=== PATIENT | male | born 1950 | race Caucasian/White ===

== ENCOUNTER 2020-12-11 20:18 | Inpatient (IN) | payer MEDICARE, BC ==
[~2020-12-11] VITALS: Ht 180.3 cm; Wt 80.3 kg
[2020-12-11 19:40] VITALS: BP 108/59
--- NOTE | 2020-12-11 19:45 | NUR ---
Pt arrived to room 646 at 1937 per ems, pt assisted to bed from cart with assistance tele monitor applied to pt vas obtained and stable. Pt oriented to surroundings and call light. Assessment completed pt denied pain at this time pt coccyx red foam applied will resume care and continue to monitor pt.
[2020-12-11] MEDS ORDERED: oxyCODONE/APAP 5/325 1 TAB TABLET PO PRN ×2 (20:45)
[2020-12-11] MEDS ORDERED: ELECTROLYTE (NON-ICU) PROTOCOL. MC PRN (20:45)
[2020-12-11] MEDS ORDERED: oxyCODONE IR 5 MG TABLET PO PRN (20:45)
[2020-12-11] MEDS ORDERED: DEXTROSE 50% 25 GM / 50ML DISP.SYRIN. IV PRN (20:45)
[2020-12-11] MEDS ORDERED: CALCIUM CARBONATE 500 MG TAB.CHEW PO PRN (20:45)
[2020-12-11] MEDS ORDERED: ONDANSETRON PF 4 MG/2 ML VIAL. IVP PRN (20:45)
[2020-12-11] MEDS ORDERED: ACETAMINOPHEN 325 MG TABLET. PO PRN (20:45)
--- NOTE | 2020-12-11 20:54 | PDOC1 ---
History and Physical Date of Service: DOS: DATE: 12/11/20 TIME: 20:42 Chief Complaint: Problems: (1) DM2 (diabetes mellitus, type 2) (2) CAD (coronary artery disease) (3) Pneumonia due to COVID-19 virus Chief Complain: Falls at home History of Present Illness: HPI: Patient 70-year-old male presented to the emergency room at outside hospital on December 05 with a chief complaint of multiple falls secondary to trouble with balance. Apparently this has been going on for several months around the same time patient had decreased eating drinking for reasons unknown. Patient has very poorly controlled diabetes A1c greater than 14 at outside hospital. He has bad neuropathy as well. Presented outside facility was found to be Covid positive. While outside facility patient apparently had questionable seizure activity? Appears that this was related to his infections and poorly controlled diabetes. He notes that patient was placed on Keppra at any time or anything. Suspect patient also getting hypoglycemic with diabetes and decreased p.o. intake. Patient had apparently been doing well with Covid treatment with remdesivir and steroids but over the past 24 hours has had an increased O2 requirement. Transferred here for further work-up. Patient has never been Covid vaccinated. He thinks his pneumococcal vaccines are up-to-date. Past Medical/Surgical History: PMH/PSH: COPD, emphysema, CAD, hyperlipidemia, sleep apnea, poorly controlled diabetes Allergies: Allergies: Coded Allergies: No Known Allergies (Verified Allergy, Unknown, 12/11/20) Family History: Family History: Reviewed with patient reports history of hypertension Social History: Social History: 19-wbsy-ifii smoking history. Social alcohol use no recreational drug use Current Medications: Current Medications Current Medications Ondansetron HCl (Zofran) 4 mg PRN Q6HRS PRN IVP NAUSEA/VOMITING; Start 12/11/20 at 20:45 Calcium Carbonate/ Glycine (Tums) 500 mg PRN Q3HRS PRN PO UPSET STOMACH; Start 12/11/20 at 20:45; Status UNV Info (Non-Icu Electrolyte Protocol) 1 ea PRN DAILY PRN MC SEE COMMENTS; Start 12/11/20 at 20:45; Status UNV Oxycodone HCl (Roxicodone) 5 mg PRN Q3HRS PRN PO BREAKTHROUGH PAIN; Start 12/11/20 at 20:45; Status UNV Oxycodone/ Acetaminophen (Percocet 5/325) 1 tab PRN Q4HRS PRN PO MILD PAIN, 1ST CHOICE; Start 12/11/20 at 20:45; Status UNV Oxycodone/ Acetaminophen (Percocet 5/325) 2 tab PRN Q4HRS PRN PO MODERATE PAIN, SEVERE PAIN; Start 12/11/20 at 20:45; Status UNV Acetaminophen (Tylenol) 650 mg PRN Q6HRS PRN PO Headaches, Temp > 101.5F; Start 12/11/20 at 20:45; Status UNV Senna/Docusate Sodium (Senna Plus) 1 tab BID PO ; Start 12/11/20 at 21:00; Status UNV Heparin Sodium (Porcine) (Heparin Sodium) 5,000 unit Q12HR SQ ; Start 12/11/20 at 21:00; Status UNV Insulin Glargine (Lantus Syringe) 15 unit QHS SQ ; Start 12/11/20 at 21:00; Status UNV Insulin Human Lispro (HumaLOG) 0-7 UNITS TIDWMEALS SQ ; Start 12/12/20 at 08:00; Status UNV Dextrose (Dextrose 50%-Water Syringe) 12.5 gm PRN Q15MIN PRN IV SEE COMMENTS; Start 12/11/20 at 20:45; Status UNV ROS: Review of Systems Review of System Unless noted in HPI 14 point review of systems was negative Physical Exam: Vital Signs: Vital Signs Date Time Temp Pulse Resp B/P (MAP) Pulse Ox O2 Delivery O2 Flow Rate FiO2 12/11/20 19:40 97.7 66 18 108/59 (75) 95 NonRebreather Mask 97.7 Physcial Exam: GEN: No apparent distress. Alert and oriented x 3 HEENT: Normal cephalic, atraumatic, external auditory canals are patent EYES: Extraocular muscles are intact, pupil are equally round and reactive to light and accommodation MUSCULOSKELETAL: Well developed , well nourished, good range of motion ENDOCRINE: No thyromegaly was palpated LYMPHATICS: No cervical chain or axillary nodes were noted HEMATOPOIETIC: No bruising NECK: Supple, no JVD, no thyromegaly was noted LUNGS: Coarse breath sounds throughout decreased air entry HEART: RRR, S!, S2 present. Peripheral pulses intact, no obvious murmurs noted ABDOMEN: Soft, nontender. Positive bowel sounds, no organomegaly, normal bowel sounds EXTREMITIES: Without clubbing, cyanosis, or edema. Pedal pulses intact. NEUROLOGIC: Normal speech and tone. A&O x 3, moves all extremities, weakness throughout PSYCHIATRIC: Normal affect, normal mood. Stable SKIN: No ulcerations or rashes, good skin turgor, no jaundice VASCULAR: Good capillary refill, neurovascular bundle appears to be intact Labs: Labs: Lab work remarkable for troponin 0 0.074, glucose 357 white count 6.8, creatinine 1.3. Echo in March 2020 shows EF 55 to 60% Assessment/Plan Assessment/Plan Acute hypoxic respiratory failure secondary to COVID-19 pneumonia, type 2 diabetes with poor control, severe protein malnutrition -Present outside hospital with multiple falls in setting of Covid positive recent episode of altered mental status and poor p.o. intake -Treated with remdesivir steroids at outside hospital -Remdesivir and dexamethasone resumed from [facility] for Covid. -will add Zosyn in event of bacterial pneumonia overlapping -A1c at outside facility 14.5. Needs aggressive glucose control. Will start sliding scale and long-acting until daily insulin requirement established -DVT prophylaxis -Cardiac diet -Home meds resumed as indicated. I spent 19 minutes discussing advanced care planning with this patient he would like to be full code. I also discussed this with patient's over the phone who agrees with this sentiment. Justifications for Admission Other Justification BRITTNY MATTHEW MD Dec 11, 2020 20:54
[2020-12-11] MEDS ORDERED: PIP/TAZO PER PHARMACY MC PRN (21:00)
[2020-12-11] MEDS: SENNOSIDES/DOCUSATE 8.6/50MG TABLET. PO SCH (21:38)
[2020-12-11] MEDS: INSULIN GLARGINE SYRINGE. SQ SCH (21:38)
[2020-12-11] MEDS: HEPARIN for SUB-Q USE 5,000 UNIT/ML VIAL. SQ SCH (21:38)
[2020-12-11] MEDS: PIPERACILLIN/TAZOBACTAM 2.25 GM in IV NORMAL SALINE 50ML 50 ML IV SCH (23:07)
[2020-12-11 23:16] VITALS: BP 117/76
[2020-12-12 03:00] VITALS: BP 127/68
[2020-12-12] MEDS ORDERED: LISI20TA18 PO (05:04)
[2020-12-12] MEDS ORDERED: CETI10TA16 PO (05:04)
[2020-12-12] MEDS ORDERED: GABA600T7 PO (05:04)
[2020-12-12] MEDS ORDERED: BUPR150T21 PO (05:04)
[2020-12-12] MEDS ORDERED: ESOM40CA PO (05:04)
[2020-12-12] MEDS ORDERED: ESCITALOPRAM OX10 MG PO (05:04)
[2020-12-12] MEDS ORDERED: ASPI-630 PO (05:04)
[2020-12-12] MEDS ORDERED: PRAV20TA2 PO (05:04)
[2020-12-12] MEDS ORDERED: INSU100I13 SQ (05:04)
[2020-12-12] MEDS: PIPERACILLIN/TAZOBACTAM 2.25 GM in IV NORMAL SALINE 50ML 50 ML IV SCH ×4 (05:30→23:33)
[2020-12-12 07:22] VITALS: BP 127/81
[2020-12-12] MEDS: INSULIN LISPRO 300 UNITS/3 ML VIAL. SQ SCH ×3 (08:00→17:00)
[2020-12-12] MEDS: SENNOSIDES/DOCUSATE 8.6/50MG TABLET. PO SCH ×3 (09:00→21:37)
[2020-12-12] MEDS: HEPARIN for SUB-Q USE 5,000 UNIT/ML VIAL. SQ SCH ×2 (10:29→21:36)
[2020-12-12 10:52] VITALS: BP 123/72
--- NOTE | 2020-12-12 12:07 | PDOC ---
[employer] PROGRESS NOTE Date of Service DOS: DATE: 12/12/20 TIME: 12:05 Chief Complaint Chief Complaint Covid-19 respiratory failure Advanced age COPD, emphysema, CAD, hyperlipidemia, sleep apnea, poorly controlled diabetes History of Present Illness History of Present Illness 12/12/2020 Patient seen and examined He is on 100% nonrebreather Pleasantly confused Discussed with RN Chart reviewed He appears quite ill! Vitals/I&O Vitals/I&O: Vital Signs Date Time Temp Pulse Resp B/P (MAP) Pulse Ox O2 Delivery O2 Flow Rate FiO2 12/12/20 10:52 97.8 106 22 123/72 (89) 94 NonRebreather Mask 15.0 97.8 I & O 12/11/20 12/11/20 12/12/20 15:00 23:00 07:00 Intake Total 0 ml 300 ml Output Total 500 ml Balance 0 ml -200 ml Physical Exam General: Other (Pleasantly confused on 100% nonrebreather) Heart: Other (Tachycardic S1-S2) Lungs: Crackles Abdomen: No tenderness Extremities: No clubbing Skin: No rashes Labs Labs: Laboratory Tests Test 12/11/20 21:45 12/12/20 10:26 Glucose (Fingerstick) 231 mg/dL (70-99) 182 mg/dL (70-99) Assessment and Plan Assessmemt and Plan Covid-19 respiratory failure Advanced age COPD, emphysema, CAD, hyperlipidemia, sleep apnea, poorly controlled diabetes Plan Respiratory isolation Cardiac monitoring Covid protocol Remdesivir Zosyn Doxycycline Multiple vitamins with minerals Robitussin with codeine cough syrup Aspirin Heparin for DVT prophylaxis Continue O2 per 100% nonrebreather and hope to titrate that down Trend labs Home meds DVT prophylaxis Full code Prognosis guarded CC time 31-minute Comment Review of Relevant I have reviewed the following items tina (where applicable) has been applied. Medications: Current Medications Medications (Trade) Dose Ordered Sig/Vandana Route PRN Reason Start Time Stop Time Status Last Admin Dose Admin Senna/Docusate Sodium (Senna Plus) 1 tab BID PO 12/11/20 21:00 12/11/20 21:38 Heparin Sodium (Porcine) (Heparin Sodium) 5,000 unit Q12HR SQ 12/11/20 21:00 12/12/20 10:29 Insulin Glargine (Lantus Syringe) 15 unit QHS SQ 12/11/20 21:00 12/11/20 21:38 Piperacillin Sod/ Tazobactam Sod 2.25 gm/Sodium Chloride 50 ml @ 100 mls/hr Q6HRS IV 12/12/20 00:00 12/12/20 05:30 Justifications for Admission Other Justification HANNAH PARKER III DO Dec 12, 2020 12:07
[2020-12-12] MEDS ORDERED: ENOXAPARIN 40 MG/0.4 ML SYRINGE. SQ SCH (12:15)
[2020-12-12] MEDS ORDERED: guaiFENesin/CODEINE 100mg/10mg 5 ML LIQUID PO PRN (12:15)
[2020-12-12] MEDS: MULTIVITAMIN with MINERAL TABLET. PO SCH (12:32)
[2020-12-12] MEDS: DEXAMETHASONE SOD PHOS 4 MG/ML VIAL IVP SCH (12:32)
[2020-12-12] MEDS: ASPIRIN CHEWABLE 81 MG TABLET. PO SCH (12:32)
[2020-12-12 15:00] VITALS: BP 140/68
[2020-12-12] MEDS: DOXYCYCLINE HYCLATE 100 MG in IV DEXTROSE 5% 100ML 100 ML IV SCH ×2 (16:07→21:38)
--- NOTE | 2020-12-12 16:49 | NUR ---
SS following for discharge planning. SS reviewed pt chart and discussed with pt RN. Pt is from home with spouse and is currently requiring oxygen at 15 liters non-rebreather. COVID19 positive. Pt on IV Remdesivir, IV Zosyn, IV Doxycycline, and IV Decadron. SS will continue to follow for discharge planning.
[2020-12-12] MEDS: REMDESIVIR 100mg in NORMAL SALINE 250ML X 4 DAYS IV SCH (17:33)
[2020-12-12 19:16] VITALS: BP 114/77
--- NOTE | 2020-12-12 19:55 | NUR ---
Pt in bed assessment completed vss pt denied pain at this time pt alert with forgetfulness pt reoriented to surroundings and call light bed alarm set will resume care and continue to monitor pt.
[2020-12-12] MEDS: INSULIN GLARGINE SYRINGE. SQ SCH (21:36)
[2020-12-12 22:50] VITALS: BP 162/87
[2020-12-13] VITALS (10 sets, daily range): BP systolic 120–155; BP diastolic 65–86
[2020-12-13 05:34] LABS: HEMATOCRIT 40.9 % (39.0-53.0); HEMOGLOBIN 13.2 g/dL (13.0-17.5); RED BLOOD COUNT 4.64 x10^6/uL (4.30-5.70); RED CELL DISTRIBUTION WIDTH 13.8 % (11.5-14.5); WHITE BLOOD COUNT 12.2 x10^3/uL (4.0-11.0)
[2020-12-13] MEDS: PIPERACILLIN/TAZOBACTAM 2.25 GM in IV NORMAL SALINE 50ML 50 ML IV SCH (05:49)
[2020-12-13 06:14] LABS: ALBUMIN 1.5 g/dL (3.4-5.0); ALBUMIN/GLOBULIN RATIO 0.3 (1.0-1.7); CALCIUM 8.4 mg/dL (8.5-10.1); CREATININE 1.4 mg/dL (0.7-1.3); GFR 49.8; POTASSIUM 4.1 mmol/L (3.5-5.1); TOTAL BILIRUBIN 0.4 mg/dL (0.2-1.0)
[2020-12-13] MEDS: INSULIN LISPRO 300 UNITS/3 ML VIAL. SQ SCH ×3 (08:00→17:00)
[2020-12-13] MEDS: SENNOSIDES/DOCUSATE 8.6/50MG TABLET. PO SCH ×2 (09:00→21:06)
[2020-12-13] MEDS: HEPARIN for SUB-Q USE 5,000 UNIT/ML VIAL. SQ SCH (10:15)
[2020-12-13] MEDS: ASPIRIN CHEWABLE 81 MG TABLET. PO SCH (10:15)
[2020-12-13] MEDS: DOXYCYCLINE HYCLATE 100 MG in IV DEXTROSE 5% 100ML 100 ML IV SCH ×2 (10:16→21:06)
[2020-12-13] MEDS: MULTIVITAMIN with MINERAL TABLET. PO SCH (10:17)
[2020-12-13] MEDS: DEXAMETHASONE SOD PHOS 4 MG/ML VIAL IVP SCH (10:17)
--- NOTE | 2020-12-13 11:51 | PDOC ---
[employer] PROGRESS NOTE Date of Service DOS: DATE: 12/13/20 TIME: 11:49 Chief Complaint Chief Complaint Covid-19 respiratory failure Advanced age COPD, emphysema, CAD, hyperlipidemia, sleep apnea, poorly controlled diabetes History of Present Illness History of Present Illness 12/13/2020 Patient seen and examined Currently on 100% nonrebreather Appears quite ill Pleasantly confused Discussed with respiratory therapist Discussed with RN Discussed with case management Chart reviewed He keeps pulling off his nonrebreather and desats to 60 12/12/2020 Patient seen and examined He is on 100% nonrebreather Pleasantly confused Discussed with RN Chart reviewed He appears quite ill! Vitals/I&O Vitals/I&O: Vital Signs Date Time Temp Pulse Resp B/P (MAP) Pulse Ox O2 Delivery O2 Flow Rate FiO2 12/13/20 11:06 98.5 103 18 155/84 (107) 96 NonRebreather Mask 15.0 98.5 I & O 12/12/20 12/12/20 12/13/20 15:00 23:00 07:00 Intake Total 50 ml 320 ml 0 ml Output Total 1400 ml 1350 ml Balance 50 ml -1080 ml -1350 ml Physical Exam General: Other (Pleasantly confused on 100% nonrebreather) Heart: Other (Tachycardic S1-S2) Lungs: Crackles Abdomen: No tenderness Extremities: No clubbing Skin: No rashes Labs Labs: Laboratory Tests Test 12/12/20 12:10 12/12/20 16:52 12/12/20 20:44 12/13/20 05:10 Glucose (Fingerstick) 145 mg/dL (70-99) 164 mg/dL (70-99) 189 mg/dL (70-99) White Blood Count 12.2 x10^3/uL (4.0-11.0) Red Blood Count 4.64 x10^6/uL (4.30-5.70) Hemoglobin 13.2 g/dL (13.0-17.5) Hematocrit 40.9 % (39.0-53.0) Mean Corpuscular Volume 88 fL (79-100) Mean Corpuscular Hemoglobin 29 pg (25-35) Mean Corpuscular Hemoglobin Concent 32 g/dL (31-37) Red Cell Distribution Width 13.8 % (11.5-14.5) Platelet Count 371 x10^3/uL (140-400) Sodium Level 141 mmol/L (136-145) Potassium Level 4.1 mmol/L (3.5-5.1) Chloride Level 105 mmol/L (98-107) Carbon Dioxide Level 27 mmol/L (21-32) Anion Gap 9 (6-14) Blood Urea Nitrogen 39 mg/dL (8-26) Creatinine 1.4 mg/dL (0.7-1.3) Estimated GFR (Cockcroft-Gault) 49.8 BUN/Creatinine Ratio 28 (6-20) Glucose Level 144 mg/dL (70-99) Calcium Level 8.4 mg/dL (8.5-10.1) Total Bilirubin 0.4 mg/dL (0.2-1.0) Aspartate Amino Transf (AST/SGOT) 31 U/L (15-37) Alanine Aminotransferase (ALT/SGPT) 29 U/L (16-63) Alkaline Phosphatase 187 U/L (46-116) Total Protein 6.0 g/dL (6.4-8.2) Albumin 1.5 g/dL (3.4-5.0) Albumin/Globulin Ratio 0.3 (1.0-1.7) Test 12/13/20 07:23 12/13/20 10:27 Glucose (Fingerstick) 127 mg/dL (70-99) 104 mg/dL (70-99) Assessment and Plan Assessmemt and Plan Covid-19 respiratory failure Advanced age COPD, emphysema, CAD, hyperlipidemia, sleep apnea, poorly controlled diabetes Plan Respiratory isolation Cardiac monitoring Covid protocol Remdesivir Zosyn Doxycycline Multiple vitamins with minerals Robitussin with codeine cough syrup Aspirin Heparin for DVT prophylaxis Continue O2 per 100% nonrebreather and hope to titrate that down (he may have to go to a Vapotherm?) Trend labs Home meds DVT prophylaxis Full code Prognosis guarded CC time 32-minute Comment Review of Relevant I have reviewed the following items tina (where applicable) has been applied. Medications: Current Medications Medications (Trade) Dose Ordered Sig/Vandana Route PRN Reason Start Time Stop Time Status Last Admin Dose Admin Remdesivir 100 mg/ Sodium Chloride 230 ml @ 460 mls/hr Q24H IV 12/12/20 18:00 12/15/20 18:29 12/12/20 17:33 Dexamethasone Sodium Phosphate (Decadron) 6 mg DAILY IVP 12/12/20 12:00 12/13/20 10:17 Aspirin (Aspirin Chewable) 81 mg DAILYWBKFT PO 12/12/20 12:30 12/13/20 10:15 Multivitamins (Thera M Plus) 1 tab DAILY PO 12/12/20 12:30 12/13/20 10:17 Doxycycline Hyclate 100 mg/ Dextrose 100 ml @ 50 mls/hr Q12HR IV 12/12/20 13:00 12/13/20 10:16 Justifications for Admission Other Justification HANNAH PARKER III DO Dec 13, 2020 11:51
--- NOTE | 2020-12-13 13:19 | NUR ---
SS following up with discharge planning. SS reviewed pt chart and discussed with pt RN. Pt is currently requiring oxygen at 15 liters non-rebreather. COVID19 positive. Pt on IV Remdesivir, IV Zosyn, IV Decadron, and IV Doxycycline. PT/OT ordered. SS will continue to follow for discharge planning.
--- NOTE | 2020-12-13 13:44 | PDOC2 ---
CONSULT Date of Consult Date of Consult DATE: 12/13/20 TIME: 13:44 Reason for Consult Reason for Consult: Atrial fibrillation Referring Physician Referring Physician: Dr. Linda Identification/Chief Complaint Chief Complaint Multiple falls Source Source: Chart review, Patient History of Present Illness Reason for Visit: 70-year-old male initially presented to ED at an outside hospital with multiple falls secondary to imbalance. He apparently was not eating or drinking well secondary to loss of appetite. He was found to be Covid positive and was started on treatment with remdesivir and steroids but since he was having increasing oxygen requirements, he was transferred to [facility] for further management. Patient is presently wearing a mask, in mild distress and confused and hence significant history could not be obtained. He however denied any chest pain or palpitations. Cardiology has been consulted for newly diagnosed atrial fibrillation. Past Medical History Past Medical History COPD/emphysema Coronary artery disease Hyperlipidemia Hypertension Poorly controlled diabetes mellitus type 2 Sleep apnea Family History Family History Hypertension Social History Social History Patient has [id number] smoking history, admitted to social alcohol use and denied any drug use per chart review Current Medications Current Medications Current Medications Ondansetron HCl (Zofran) 4 mg PRN Q6HRS PRN IVP NAUSEA/VOMITING; Start 12/11/20 at 20:45 Calcium Carbonate/ Glycine (Tums) 500 mg PRN Q3HRS PRN PO UPSET STOMACH; Start 12/11/20 at 20:45 Info (Non-Icu Electrolyte Protocol) 1 ea PRN DAILY PRN MC SEE COMMENTS; Start 12/11/20 at 20:45 Oxycodone HCl (Roxicodone) 5 mg PRN Q3HRS PRN PO BREAKTHROUGH PAIN; Start 12/11/20 at 20:45 Oxycodone/ Acetaminophen (Percocet 5/325) 1 tab PRN Q4HRS PRN PO MILD PAIN, 1ST CHOICE; Start 12/11/20 at 20:45 Oxycodone/ Acetaminophen (Percocet 5/325) 2 tab PRN Q4HRS PRN PO MODERATE PAIN, SEVERE PAIN; Start 12/11/20 at 20:45 Acetaminophen (Tylenol) 650 mg PRN Q6HRS PRN PO Headaches, Temp > 101.5F; Start 12/11/20 at 20:45 Senna/Docusate Sodium (Senna Plus) 1 tab BID PO Last administered on 12/11/20at 21:38; Start 12/11/20 at 21:00 Heparin Sodium (Porcine) (Heparin Sodium) 5,000 unit Q12HR SQ Last administered on 12/13/20at 10:15; Start 12/11/20 at 21:00 Insulin Glargine (Lantus Syringe) 15 unit QHS SQ Last administered on 12/12/20at 21:36; Start 12/11/20 at 21:00 Insulin Human Lispro (HumaLOG) 0-7 UNITS TIDWMEALS SQ ; Start 12/12/20 at 08:00 Dextrose (Dextrose 50%-Water Syringe) 12.5 gm PRN Q15MIN PRN IV SEE COMMENTS; Start 12/11/20 at 20:45 Remdesivir 100 mg/ Sodium Chloride 230 ml @ 460 mls/hr Q24H IV Last administered on 12/12/20at 17:33; Start 12/12/20 at 18:00; Stop 12/15/20 at 18:29 Piperacillin Sod/ Tazobactam Sod (Zosyn Per Pharmacy) 1 each PRN DAILY PRN MC SEE COMMENTS; Start 12/11/20 at 21:00 Piperacillin Sod/ Tazobactam Sod 2.25 gm/Sodium Chloride 50 ml @ 100 mls/hr Q6HRS IV Last administered on 12/13/20at 05:49; Start 12/12/20 at 00:00; Stop 12/13/20 at 09:02; Status DC Dexamethasone Sodium Phosphate (Decadron) 6 mg DAILY IVP Last administered on 12/13/20at 10:17; Start 12/12/20 at 12:00 Aspirin (Aspirin Chewable) 81 mg DAILYWBKFT PO Last administered on 12/13/20at 10:15; Start 12/12/20 at 12:30 Guaifenesin/ Codeine Phosphate (Robitussin Ac) 5 ml PRN Q6HRS PRN PO COUGH; Start 12/12/20 at 12:15 Multivitamins (Thera M Plus) 1 tab DAILY PO Last administered on 12/13/20at 10:17; Start 12/12/20 at 12:30 Doxycycline Hyclate 100 mg/ Dextrose 100 ml @ 50 mls/hr Q12HR IV Last adm inistered on 12/13/20at 10:16; Start 12/12/20 at 13:00 Enoxaparin Sodium (Lovenox 40mg Syringe) 40 mg Q24H SQ ; Start 12/12/20 at 12:15; Status UNV Lactobacillus Rhamnosus (Culturelle) 1 cap BID PO ; Start 12/13/20 at 21:00 Piperacillin Sod/ Tazobactam Sod 3.375 gm/Sodium Chloride 50 ml @ 100 mls/hr Q6HRS IV ; Start 12/13/20 at 12:00 Active Scripts Active Reported Gabapentin 600 Mg Tablet 600 Mg PO BID Aspirin 81 Mg Tab.chew 1 Tab PO DAILY Pravastatin Sodium 20 Mg Tablet 1 Tab PO QHS Escitalopram Oxalate 10 Mg Tablet 1 Tab PO DAILY Cetirizine Hcl 10 Mg Tablet 1 Tab PO DAILY Lisinopril 20 Mg Tablet 1 Tab PO DAILY Bupropion Xl (Bupropion Hcl) 150 Mg Tab.er.24h 1 Tab PO BID Nexium Capsule (Esomeprazole Magnesium) 40 Mg Capsule.dr 1 Cap PO DAILY Lantus Solostar (Insulin Glargine,Hum.rec.anlog) 100 Unit/1 Ml Insuln.pen 30 Unit SQ QHS Allergies Allergies: Coded Allergies: No Known Allergies (Verified Allergy, Unknown, 12/11/20) ROS Review of System Full review of systems cannot be obtained since patient is confused and in dist ress Physical Exam General: mild distress, Other (Confused) HEENT: Atraumatic Lungs: Other (Bilateral scattered crepitations) Heart: Other (Tachycardic and irregularly irregular) Abdomen: Soft Extremities: No edema Vitals VITALS Vital Signs Date Time Temp Pulse Resp B/P (MAP) Pulse Ox O2 Delivery O2 Flow Rate FiO2 12/13/20 11:06 98.5 103 18 155/84 (107) 96 NonRebreather Mask 15.0 98.5 Labs Labs Laboratory Tests Test 12/11/20 21:45 12/12/20 10:26 12/12/20 12:10 12/12/20 16:52 Glucose (Fingerstick) 231 mg/dL (70-99) 182 mg/dL (70-99) 145 mg/dL (70-99) 164 mg/dL (70-99) Test 12/12/20 20:44 12/13/20 05:10 12/13/20 07:23 12/13/20 10:27 Glucose (Fingerstick) 189 mg/dL (70-99) 127 mg/dL (70-99) 104 mg/dL (70-99) White Blood Count 12.2 x10^3/uL (4.0-11.0) Red Blood Count 4.64 x10^6/uL (4.30-5.70) Hemoglobin 13.2 g/dL (13.0-17.5) Hematocrit 40.9 % (39.0-53.0) Mean Corpuscular Volume 88 fL (79-100) Mean Corpuscular Hemoglobin 29 pg (25-35) Mean Corpuscular Hemoglobin Concent 32 g/dL (31-37) Red Cell Distribution Width 13.8 % (11.5-14.5) Platelet Count 371 x10^3/uL (140-400) Sodium Level 141 mmol/L (136-145) Potassium Level 4.1 mmol/L (3.5-5.1) Chloride Level 105 mmol/L (98-107) Carbon Dioxide Level 27 mmol/L (21-32) Anion Gap 9 (6-14) Blood Urea Nitrogen 39 mg/dL (8-26) Creatinine 1.4 mg/dL (0.7-1.3) Estimated GFR (Cockcroft-Gault) 49.8 BUN/Creatinine Ratio 28 (6-20) Glucose Level 144 mg/dL (70-99) Calcium Level 8.4 mg/dL (8.5-10.1) Total Bilirubin 0.4 mg/dL (0.2-1.0) Aspartate Amino Transf (AST/SGOT) 31 U/L (15-37) Alanine Aminotransferase (ALT/SGPT) 29 U/L (16-63) Alkaline Phosphatase 187 U/L (46-116) Total Protein 6.0 g/dL (6.4-8.2) Albumin 1.5 g/dL (3.4-5.0) Albumin/Globulin Ratio 0.3 (1.0-1.7) Laboratory Tests Test 12/12/20 16:52 12/12/20 20:44 12/13/20 05:10 12/13/20 07:23 Glucose (Fingerstick) 164 mg/dL (70-99) 189 mg/dL (70-99) 127 mg/dL (70-99) White Blood Count 12.2 x10^3/uL (4.0-11.0) Red Blood Count 4.64 x10^6/uL (4.30-5.70) Hemoglobin 13.2 g/dL (13.0-17.5) Hematocrit 40.9 % (39.0-53.0) Mean Corpuscular Volume 88 fL (79-100) Mean Corpuscular Hemoglobin 29 pg (25-35) Mean Corpuscular Hemoglobin Concent 32 g/dL (31-37) Red Cell Distribution Width 13.8 % (11.5-14.5) Platelet Count 371 x10^3/uL (140-400) Sodium Level 141 mmol/L (136-145) Potassium Level 4.1 mmol/L (3.5-5.1) Chloride Level 105 mmol/L (98-107) Carbon Dioxide Level 27 mmol/L (21-32) Anion Gap 9 (6-14) Blood Urea Nitrogen 39 mg/dL (8-26) Creatinine 1.4 mg/dL (0.7-1.3) Estimated GFR (Cockcroft-Gault) 49.8 BUN/Creatinine Ratio 28 (6-20) Glucose Level 144 mg/dL (70-99) Calcium Level 8.4 mg/dL (8.5-10.1) Total Bilirubin 0.4 mg/dL (0.2-1.0) Aspartate Amino Transf (AST/SGOT) 31 U/L (15-37) Alanine Aminotransferase (ALT/SGPT) 29 U/L (16-63) Alkaline Phosphatase 187 U/L (46-116) Total Protein 6.0 g/dL (6.4-8.2) Albumin 1.5 g/dL (3.4-5.0) Albumin/Globulin Ratio 0.3 (1.0-1.7) Test 12/13/20 10:27 Glucose (Fingerstick) 104 mg/dL (70-99) Assessment/Plan Assessment/Plan 1. Atrial fibrillation with RVR, new onset, starting last night, in the setting of Covid pneumonia. Start Cardizem drip for rate control. Start heparin infusion for stroke prophylaxis. If it does not convert to sinus rhythm, we will consider outpatient cardioversion once he recovers from Covid pneumonia. We will also check 2D echo once Covid recovered. 2. Acute hypoxic respiratory failure secondary to Covid pneumonia: Continue current treatment including remdesivir and steroids 3. Hypertension: Slightly labile, probably will be better controlled once we start Cardizem drip 4. Hyperlipidemia: Statins 5. Coronary artery disease history noted in chart, details uncertain. He appears to be clinically stable. 6. Diabetes mellitus type 2, poorly controlled, protein calorie malnutrition: Treat per IM Thank you for your consultation JEROMY ZAVALA MD Dec 13, 2020 13:44
[2020-12-13] MEDS ORDERED: DIGOXIN IV 500 MCG/2 ML AMPUL. IV ONE (14:00)
[2020-12-13] MEDS: PIPERACILLIN/TAZOBACTAM 3.375 GM in IV NORMAL SALINE 50ML 50 ML IV SCH ×3 (14:30→23:27)
--- NOTE | 2020-12-13 14:57 | PDOC ---
PULMONARY PROGRESS NOTES DATE: 12/13/20 TIME: 14:48 Vitals Vital Signs Date Time Temp Pulse Resp B/P (MAP) Pulse Ox O2 Delivery O2 Flow Rate FiO2 12/13/20 14:30 103 155/84 12/13/20 11:06 98.5 18 96 NonRebreather Mask 15.0 98.5 Lungs: Crackles Labs Laboratory Tests Test 12/11/20 21:45 12/12/20 10:26 12/12/20 12:10 12/12/20 16:52 Glucose (Fingerstick) 231 mg/dL (70-99) 182 mg/dL (70-99) 145 mg/dL (70-99) 164 mg/dL (70-99) Test 12/12/20 20:44 12/13/20 05:10 12/13/20 07:23 12/13/20 10:27 Glucose (Fingerstick) 189 mg/dL (70-99) 127 mg/dL (70-99) 104 mg/dL (70-99) White Blood Count 12.2 x10^3/uL (4.0-11.0) Red Blood Count 4.64 x10^6/uL (4.30-5.70) Hemoglobin 13.2 g/dL (13.0-17.5) Hematocrit 40.9 % (39.0-53.0) Mean Corpuscular Volume 88 fL (79-100) Mean Corpuscular Hemoglobin 29 pg (25-35) Mean Corpuscular Hemoglobin Concent 32 g/dL (31-37) Red Cell Distribution Width 13.8 % (11.5-14.5) Platelet Count 371 x10^3/uL (140-400) Sodium Level 141 mmol/L (136-145) Potassium Level 4.1 mmol/L (3.5-5.1) Chloride Level 105 mmol/L (98-107) Carbon Dioxide Level 27 mmol/L (21-32) Anion Gap 9 (6-14) Blood Urea Nitrogen 39 mg/dL (8-26) Creatinine 1.4 mg/dL (0.7-1.3) Estimated GFR (Cockcroft-Gault) 49.8 BUN/Creatinine Ratio 28 (6-20) Glucose Level 144 mg/dL (70-99) Calcium Level 8.4 mg/dL (8.5-10.1) Total Bilirubin 0.4 mg/dL (0.2-1.0) Aspartate Amino Transf (AST/SGOT) 31 U/L (15-37) Alanine Aminotransferase (ALT/SGPT) 29 U/L (16-63) Alkaline Phosphatase 187 U/L (46-116) Total Protein 6.0 g/dL (6.4-8.2) Albumin 1.5 g/dL (3.4-5.0) Albumin/Globulin Ratio 0.3 (1.0-1.7) Laboratory Tests Test 12/12/20 16:52 12/12/20 20:44 12/13/20 05:10 12/13/20 07:23 Glucose (Fingerstick) 164 mg/dL (70-99) 189 mg/dL (70-99) 127 mg/dL (70-99) White Blood Count 12.2 x10^3/uL (4.0-11.0) Red Blood Count 4.64 x10^6/uL (4.30-5.70) Hemoglobin 13.2 g/dL (13.0-17.5) Hematocrit 40.9 % (39.0-53.0) Mean Corpuscular Volume 88 fL (79-100) Mean Corpuscular Hemoglobin 29 pg (25-35) Mean Corpuscular Hemoglobin Concent 32 g/dL (31-37) Red Cell Distribution Width 13.8 % (11.5-14.5) Platelet Count 371 x10^3/uL (140-400) Sodium Level 141 mmol/L (136-145) Potassium Level 4.1 mmol/L (3.5-5.1) Chloride Level 105 mmol/L (98-107) Carbon Dioxide Level 27 mmol/L (21-32) Anion Gap 9 (6-14) Blood Urea Nitrogen 39 mg/dL (8-26) Creatinine 1.4 mg/dL (0.7-1.3) Estimated GFR (Cockcroft-Gault) 49.8 BUN/Creatinine Ratio 28 (6-20) Glucose Level 144 mg/dL (70-99) Calcium Level 8.4 mg/dL (8.5-10.1) Total Bilirubin 0.4 mg/dL (0.2-1.0) Aspartate Amino Transf (AST/SGOT) 31 U/L (15-37) Alanine Aminotransferase (ALT/SGPT) 29 U/L (16-63) Alkaline Phosphatase 187 U/L (46-116) Total Protein 6.0 g/dL (6.4-8.2) Albumin 1.5 g/dL (3.4-5.0) Albumin/Globulin Ratio 0.3 (1.0-1.7) Test 12/13/20 10:27 Glucose (Fingerstick) 104 mg/dL (70-99) Medications Active Scripts Medications Dose Route/Sig Max Daily Dose Days Date Category Gabapentin 600 Mg Tablet 600 Mg PO BID 12/12/20 Reported Aspirin 81 Mg Tab.chew 1 Tab PO DAILY 12/12/20 Reported Pravastatin Sodium 20 Mg Tablet 1 Tab PO QHS 12/12/20 Reported Escitalopram Oxalate 10 Mg Tablet 1 Tab PO DAILY 12/12/20 Reported Cetirizine Hcl 10 Mg Tablet 1 Tab PO DAILY 12/12/20 Reported Lisinopril 20 Mg Tablet 1 Tab PO DAILY 12/12/20 Reported Bupropion Xl (Bupropion Hcl) 150 Mg Tab.er.24h 1 Tab PO BID 12/12/20 Reported Nexium Capsule (Esomeprazole Magnesium) 40 Mg Capsule.dr 1 Cap PO DAILY 12/12/20 Reported Lantus Solostar (Insulin Glargine,Hum.rec.anlog) 100 Unit/1 Ml Insuln.pen 30 Unit SQ QHS 12/12/20 Reported Impression . Full note dictated Continue current support CR MANDUJANO MD Dec 13, 2020 14:57
[2020-12-13] MEDS ORDERED: STERILE WATER for RESP 2,000 ML BAG. INH PRN (15:15)
[2020-12-13] MEDS: HEPARIN 25,000UTS/250ML PREMIX 250 ML IV PRN (15:40)
--- NOTE | 2020-12-13 15:57 | CONS ---
DATE OF CONSULTATION: 12/13/2020 ATTENDING PHYSICIAN: Jared Pollock DO. REASON FOR CONSULTATION: The patient is seen in pulmonary consultation at the request of Dr. Pollock for abnormal chest x-ray, COVID-19 positivity. HISTORY OF PRESENT ILLNESS: The patient is a 70-year-old male who is somewhat of a poor historian, presented to the Emergency Room from outside hospital on the with chief complaints of fall secondary to trouble with balance. Apparently, this has been going on for several months. The patient has also had decreased oral intake. At one point, his hemoglobin A1c was checked and was 14. He was presented at an outside facility, was found to be COVID positive, he was transferred to [facility]. He was started on remdesivir and steroids over the last 24 hours with increasing oxygen supplementation and as a consequence, he was transferred to [place]. The patient is currently on 100% nonrebreather. He does not think he is short of breath. He is not quite sure why he is in the hospital. He has a cough, mostly nonproductive. PAST MEDICAL HISTORY: Remarkable for COPD of the emphysematous type, coronary artery disease, hyperlipidemia, sleep apnea, diabetes. ALLERGIES: No known drug allergies. FAMILY HISTORY: Hypertension. SOCIAL HISTORY: He smoked for 40 years, apparently he quit. REVIEW OF SYSTEMS: As indicated above, otherwise a 10-point system was reviewed and negative. PHYSICAL EXAMINATION: VITAL SIGNS: Stable. O2 saturation currently on nonrebreather was 96%. HEENT: Eyes: The sclerae were nonicteric. NECK: Jugular venous distention was not elevated. No lymphadenopathy. CHEST: Full expansion. LUNGS: Crackles throughout both lung elizondo. CARDIOVASCULAR: Regular rate and rhythm with S1, S2, no S3. ABDOMEN: Soft, nontender, nondistended. EXTREMITIES: No clubbing, cyanosis or edema. LABORATORY DATA: Reviewed. White count was 12.2, hemoglobin 13, hematocrit 36. BUN and creatinine were elevated. Blood sugar was elevated. AST and ALT were normal. Chest x-ray revealed bilateral pulmonary infiltrates. IMPRESSION: 1. Acute hypoxemic respiratory failure secondary to COVID-19 viral pneumonia. 2. COVID-19 viral pneumonia. 3. Type 2 diabetes. 4. Severe protein malnutrition, present upon admission. PLAN: 1. We will continue remdesivir and dexamethasone. 2. Continue empiric antibiotics. 3. Monitor blood sugars. 4. IV fluids. Monitor renal function. I do appreciate the privilege in sharing the patient's care. LUCY DR: Don TID: [id number]
[2020-12-13] MEDS: REMDESIVIR 100mg in NORMAL SALINE 250ML X 4 DAYS IV SCH (18:28)
--- NOTE | 2020-12-13 19:35 | NUR ---
Pt in bed alert x1-2 assessment completed vss poc explained pt reoriented to surroundings pt denied pain at this time ,but moans when repositioned in bed. Call light in reach bed alarm is set will resume care and continue to monitor pt.
[2020-12-13] MEDS: LACTOBACILLUS RHAMNOSUS GG 1 CAPSULE. PO SCH (21:06)
[2020-12-13] MEDS: INSULIN GLARGINE SYRINGE. SQ SCH (21:08)
[2020-12-13] MEDS: HEPARIN for IV BOLUS 10,000 UNIT/10 ML VIAL. IV PRN (23:26)
[2020-12-14] VITALS (11 sets, daily range): BP systolic 128–148; BP diastolic 75–85
[2020-12-14 05:30] LABS: HEMATOCRIT 38.8 % (39.0-53.0); RED BLOOD COUNT 4.41 x10^6/uL (4.30-5.70); RED CELL DISTRIBUTION WIDTH 13.8 % (11.5-14.5); WHITE BLOOD COUNT 12.1 x10^3/uL (4.0-11.0)
[2020-12-14] MEDS: PIPERACILLIN/TAZOBACTAM 3.375 GM in IV NORMAL SALINE 50ML 50 ML IV SCH ×3 (05:30→17:09)
[2020-12-14 05:54] LABS: ALBUMIN 1.4 g/dL (3.4-5.0); ALBUMIN/GLOBULIN RATIO 0.3 (1.0-1.7); CALCIUM 8.2 mg/dL (8.5-10.1); CREATININE 1.2 mg/dL (0.7-1.3); GFR 59.5; POTASSIUM 3.8 mmol/L (3.5-5.1); TOTAL BILIRUBIN 0.4 mg/dL (0.2-1.0); TOTAL PROTEIN 5.6 g/dL (6.4-8.2)
[2020-12-14] MEDS: INSULIN LISPRO 300 UNITS/3 ML VIAL. SQ SCH ×3 (08:00→17:00)
[2020-12-14] MEDS: LACTOBACILLUS RHAMNOSUS GG 1 CAPSULE. PO SCH ×2 (08:21→21:00)
[2020-12-14] MEDS: ASPIRIN CHEWABLE 81 MG TABLET. PO SCH (08:21)
[2020-12-14] MEDS: DEXAMETHASONE SOD PHOS 4 MG/ML VIAL IVP SCH (08:21)
[2020-12-14] MEDS: MULTIVITAMIN with MINERAL TABLET. PO SCH (08:21)
[2020-12-14] MEDS: DOXYCYCLINE HYCLATE 100 MG in IV DEXTROSE 5% 100ML 100 ML IV SCH ×2 (08:22→22:00)
[2020-12-14] MEDS: SENNOSIDES/DOCUSATE 8.6/50MG TABLET. PO SCH ×2 (09:00→21:00)
--- NOTE | 2020-12-14 09:57 | PDOC ---
PULMONARY PROGRESS NOTES DATE: 12/14/20 TIME: 09:56 Subjective Patient at times confused, pulls on oxygen, currently on 40 L Vapotherm 100% FiO2 Vitals Vital Signs Date Time Temp Pulse Resp B/P (MAP) Pulse Ox O2 Delivery O2 Flow Rate FiO2 12/14/20 08:00 Vapotherm 40.0 12/14/20 07:53 92 12/14/20 07:00 98.5 89 22 145/83 (103) 98.5 ROS: No Nausea, No Chest Pain, No Abdominal Pain, No Increase Cough Lungs: Clear Cardiovascular: S1, S2 Abdomen: Soft Neuro Exam: Alert Extremities: No Edema Skin: Warm Labs Laboratory Tests Test 12/12/20 10:26 12/12/20 12:10 12/12/20 16:52 12/12/20 20:44 Glucose (Fingerstick) 182 mg/dL (70-99) 145 mg/dL (70-99) 164 mg/dL (70-99) 189 mg/dL (70-99) Test 12/13/20 05:10 12/13/20 07:23 12/13/20 10:27 12/13/20 16:42 White Blood Count 12.2 x10^3/uL (4.0-11.0) Red Blood Count 4.64 x10^6/uL (4.30-5.70) Hemoglobin 13.2 g/dL (13.0-17.5) Hematocrit 40.9 % (39.0-53.0) Mean Corpuscular Volume 88 fL (79-100) Mean Corpuscular Hemoglobin 29 pg (25-35) Mean Corpuscular Hemoglobin Concent 32 g/dL (31-37) Red Cell Distribution Width 13.8 % (11.5-14.5) Platelet Count 371 x10^3/uL (140-400) Sodium Level 141 mmol/L (136-145) Potassium Level 4.1 mmol/L (3.5-5.1) Chloride Level 105 mmol/L (98-107) Carbon Dioxide Level 27 mmol/L (21-32) Anion Gap 9 (6-14) Blood Urea Nitrogen 39 mg/dL (8-26) Creatinine 1.4 mg/dL (0.7-1.3) Estimated GFR (Cockcroft-Gault) 49.8 BUN/Creatinine Ratio 28 (6-20) Glucose Level 144 mg/dL (70-99) Calcium Level 8.4 mg/dL (8.5-10.1) Total Bilirubin 0.4 mg/dL (0.2-1.0) Aspartate Amino Transf (AST/SGOT) 31 U/L (15-37) Alanine Aminotransferase (ALT/SGPT) 29 U/L (16-63) Alkaline Phosphatase 187 U/L (46-116) Total Protein 6.0 g/dL (6.4-8.2) Albumin 1.5 g/dL (3.4-5.0) Albumin/Globulin Ratio 0.3 (1.0-1.7) Glucose (Fingerstick) 127 mg/dL (70-99) 104 mg/dL (70-99) 159 mg/dL (70-99) Test 12/13/20 21:17 12/13/20 22:50 12/14/20 05:20 12/14/20 08:34 Glucose (Fingerstick) 179 mg/dL (70-99) 112 mg/dL (70-99) Heparin Anti-Xa Act, Unfractionated 0.17 IU/mL (0.30-0.70) 0.29 IU/mL (0.30-0.70) White Blood Count 12.1 x10^3/uL (4.0-11.0) Red Blood Count 4.41 x10^6/uL (4.30-5.70) Hemoglobin 13.0 g/dL (13.0-17.5) Hematocrit 38.8 % (39.0-53.0) Mean Corpuscular Volume 88 fL (79-100) Mean Corpuscular Hemoglobin 30 pg (25-35) Mean Corpuscular Hemoglobin Concent 34 g/dL (31-37) Red Cell Distribution Width 13.8 % (11.5-14.5) Platelet Count 418 x10^3/uL (140-400) Sodium Level 141 mmol/L (136-145) Potassium Level 3.8 mmol/L (3.5-5.1) Chloride Level 106 mmol/L (98-107) Carbon Dioxide Level 29 mmol/L (21-32) Anion Gap 6 (6-14) Blood Urea Nitrogen 36 mg/dL (8-26) Creatinine 1.2 mg/dL (0.7-1.3) Estimated GFR (Cockcroft-Gault) 59.5 BUN/Creatinine Ratio 30 (6-20) Glucose Level 142 mg/dL (70-99) Calcium Level 8.2 mg/dL (8.5-10.1) Total Bilirubin 0.4 mg/dL (0.2-1.0) Aspartate Amino Transf (AST/SGOT) 28 U/L (15-37) Alanine Aminotransferase (ALT/SGPT) 22 U/L (16-63) Alkaline Phosphatase 185 U/L (46-116) Total Protein 5.6 g/dL (6.4-8.2) Albumin 1.4 g/dL (3.4-5.0) Albumin/Globulin Ratio 0.3 (1.0-1.7) Laboratory Tests Test 12/13/20 10:27 12/13/20 16:42 12/13/20 21:17 12/13/20 22:50 Glucose (Fingerstick) 104 mg/dL (70-99) 159 mg/dL (70-99) 179 mg/dL (70-99) Heparin Anti-Xa Act, Unfractionated 0.17 IU/mL (0.30-0.70) Test 12/14/20 05:20 12/14/20 08:34 White Blood Count 12.1 x10^3/uL (4.0-11.0) Red Blood Count 4.41 x10^6/uL (4.30-5.70) Hemoglobin 13.0 g/dL (13.0-17.5) Hematocrit 38.8 % (39.0-53.0) Mean Corpuscular Volume 88 fL (79-100) Mean Corpuscular Hemoglobin 30 pg (25-35) Mean Corpuscular Hemoglobin Concent 34 g/dL (31-37) Red Cell Distribution Width 13.8 % (11.5-14.5) Platelet Count 418 x10^3/uL (140-400) Heparin Anti-Xa Act, Unfractionated 0.29 IU/mL (0.30-0.70) Sodium Level 141 mmol/L (136-145) Potassium Level 3.8 mmol/L (3.5-5.1) Chloride Level 106 mmol/L (98-107) Carbon Dioxide Level 29 mmol/L (21-32) Anion Gap 6 (6-14) Blood Urea Nitrogen 36 mg/dL (8-26) Creatinine 1.2 mg/dL (0.7-1.3) Estimated GFR (Cockcroft-Gault) 59.5 BUN/Creatinine Ratio 30 (6-20) Glucose Level 142 mg/dL (70-99) Calcium Level 8.2 mg/dL (8.5-10.1) Total Bilirubin 0.4 mg/dL (0.2-1.0) Aspartate Amino Transf (AST/SGOT) 28 U/L (15-37) Alanine Aminotransferase (ALT/SGPT) 22 U/L (16-63) Alkaline Phosphatase 185 U/L (46-116) Total Protein 5.6 g/dL (6.4-8.2) Albumin 1.4 g/dL (3.4-5.0) Albumin/Globulin Ratio 0.3 (1.0-1.7) Glucose (Fingerstick) 112 mg/dL (70-99) Medications Active Scripts Medications Dose Route/Sig Max Daily Dose Days Date Category Gabapentin 600 Mg Tablet 600 Mg PO BID 12/12/20 Reported Aspirin 81 Mg Tab.chew 1 Tab PO DAILY 12/12/20 Reported Pravastatin Sodium 20 Mg Tablet 1 Tab PO QHS 12/12/20 Reported Escitalopram Oxalate 10 Mg Tablet 1 Tab PO DAILY 12/12/20 Reported Cetirizine Hcl 10 Mg Tablet 1 Tab PO DAILY 12/12/20 Reported Lisinopril 20 Mg Tablet 1 Tab PO DAILY 12/12/20 Reported Bupropion Xl (Bupropion Hcl) 150 Mg Tab.er.24h 1 Tab PO BID 12/12/20 Reported Nexium Capsule (Esomeprazole Magnesium) 40 Mg Capsule.dr 1 Cap PO DAILY 12/12/20 Reported Lantus Solostar (Insulin Glargine,Hum.rec.anlog) 100 Unit/1 Ml Insuln.pen 30 Unit SQ QHS 12/12/20 Reported Impression . IMPRESSION: 1. Acute hypoxemic respiratory failure secondary to COVID-19 viral pneumonia. 2. COVID-19 viral pneumonia. 3. Type 2 diabetes. 4. Severe protein malnutrition, present upon admission. 5. Acute toxic encephalopathy, present upon admission Plan . Updated 12/14 Continue support with remdesivir dexamethasone Empiric antibiotics Oxygen supplementation Noted patient is a full code 12/13 PLAN: 1. We will continue remdesivir and dexamethasone. 2. Continue empiric antibiotics. 3. Monitor blood sugars. 4. IV fluids. Monitor renal function. I do appreciate the privilege in sharing the patient's care. CR MANDUJANO MD Dec 14, 2020 09:57
[2020-12-14] MEDS: HEPARIN 25,000UTS/250ML PREMIX 250 ML IV PRN (10:55)
--- NOTE | 2020-12-14 11:45 | PDOC ---
ROSA CUELLO TIMBER FRAMER HELPER 12/14/20 1145: CARDIO Progress Notes Date and Time Date of Service 12/14/20 Time of Evaluation 1130 Subjective Subjective: No Chest Pain, Other (drowsy ) Vitals Vitals Vital Signs Date Time Temp Pulse Resp B/P (MAP) Pulse Ox O2 Delivery O2 Flow Rate FiO2 12/14/20 10:59 98.9 94 22 148/80 (102) 92 vaportherm 40.0 98.9 Weight Weight [ ] Input and Output Intake and Output Intake and Output 12/14/20 07:00 Intake Total 200 ml Output Total 1700 ml Balance -1500 ml Intake Oral 200 ml Output Urine Total 1700 ml # Bowel Movements 2 Laboratory Labs Laboratory Tests Test 12/13/20 16:42 12/13/20 21:17 12/13/20 22:50 12/14/20 05:20 Glucose (Fingerstick) 159 mg/dL (70-99) 179 mg/dL (70-99) Heparin Anti-Xa Act, Unfractionated 0.17 IU/mL (0.30-0.70) 0.29 IU/mL (0.30-0.70) White Blood Count 12.1 x10^3/uL (4.0-11.0) Red Blood Count 4.41 x10^6/uL (4.30-5.70) Hemoglobin 13.0 g/dL (13.0-17.5) Hematocrit 38.8 % (39.0-53.0) Mean Corpuscular Volume 88 fL (79-100) Mean Corpuscular Hemoglobin 30 pg (25-35) Mean Corpuscular Hemoglobin Concent 34 g/dL (31-37) Red Cell Distribution Width 13.8 % (11.5-14.5) Platelet Count 418 x10^3/uL (140-400) Sodium Level 141 mmol/L (136-145) Potassium Level 3.8 mmol/L (3.5-5.1) Chloride Level 106 mmol/L (98-107) Carbon Dioxide Level 29 mmol/L (21-32) Anion Gap 6 (6-14) Blood Urea Nitrogen 36 mg/dL (8-26) Creatinine 1.2 mg/dL (0.7-1.3) Estimated GFR (Cockcroft-Gault) 59.5 BUN/Creatinine Ratio 30 (6-20) Glucose Level 142 mg/dL (70-99) Calcium Level 8.2 mg/dL (8.5-10.1) Total Bilirubin 0.4 mg/dL (0.2-1.0) Aspartate Amino Transf (AST/SGOT) 28 U/L (15-37) Alanine Aminotransferase (ALT/SGPT) 22 U/L (16-63) Alkaline Phosphatase 185 U/L (46-116) Total Protein 5.6 g/dL (6.4-8.2) Albumin 1.4 g/dL (3.4-5.0) Albumin/Globulin Ratio 0.3 (1.0-1.7) Test 12/14/20 08:34 Glucose (Fingerstick) 112 mg/dL (70-99) Physical Exam HEENT: Neck Supple W Full Motion Chest: Symmetric LUNGS: Other (on Vapotherm ) Heart: irregularly irregular (AFIB ) Abdomen: Soft N/T Extremities: No Edema Neurology: other (drowsy ) Assessment Assessment 1. Atrial fibrillation with RVR, new onset in the setting of COVID PNA. Rate controlled on Cardizem gtt. on heparin for stroke prophylaxis. 2. Acute hypoxic respiratory failure secondary to COVID PNA 3. Hypertension; better controlled 4. Hyperlipidemia: Statins 5. CAD; details unknown. appears clinically stable 6. Diabetes, II 7. Protein calorie malnutrition 8. Encephalopathy with underlying dementia Recommendations Continue Cardizem gtt for rate control Heparin gtt for stroke prophylaxis Will convert above to oral metoprolol and Eliquis when able to safely take PO Outpatient echo Consider outpatient CV, once recovered from COVID, if patient remains in AFIB Ongoing lung optimization, treatment of COVID as per pulmonary Justicifation of Admission Dx: Justifications for Admission: Justification of Admission Dx: Yes CHF: Cardiac Arrhythmias Comments: Acute respiratory failure, COVID PNA JEROMY ZAVALA MD 12/14/202039: CARDIO Progress Notes Assessment Assessment Patient seen and examined. Agree with CARPET YARN WINDER OPERATOR's assessment and plan. AF rate better controlled Agree with changing cardizem and AC to PO once able to take PO [place] 2D echo to assess LVF once covid recovered Continue current treatment for covid pneumonia ROSA CUELLO APRN Dec 14, 2020 11:45 JEROMY ZAVALA MD Dec 14, 2020 20:40
--- NOTE | 2020-12-14 11:52 | PDOC ---
[employer] PROGRESS NOTE Date of Service DOS: DATE: 12/14/20 TIME: 11:50 Chief Complaint Chief Complaint Covid-19 respiratory failure Advanced age COPD, emphysema, CAD, hyperlipidemia, sleep apnea, poorly controlled diabetes History of Present Illness History of Present Illness 12/14/2020 Patient seen and examined We had to change him over to Vapotherm 40 L 100% FiO2 currently satting 95% (he kept pulling his mask off of the nonrebreather end of ( Discussed with RN Discussed with case management He still remains quite ill 12/13/2020 Patient seen and examined Currently on 100% nonrebreather Appears quite ill Pleasantly confused Discussed with respiratory therapist Discussed with RN Discussed with case management Chart reviewed He keeps pulling off his nonrebreather and desats to 60 12/12/2020 Patient seen and examined He is on 100% nonrebreather Pleasantly confused Discussed with RN Chart reviewed He appears quite ill! Vitals/I&O Vitals/I&O: Vital Signs Date Time Temp Pulse Resp B/P (MAP) Pulse Ox O2 Delivery O2 Flow Rate FiO2 12/14/20 10:59 98.9 94 22 148/80 (102) 92 vaportherm 40.0 98.9 l I & O 12/13/20 12/13/20 12/14/20 15:00 23:00 07:00 Intake Total 150 ml 50 ml 0 ml Output Total 450 ml 350 ml 900 ml Balance -300 ml -300 ml -900 ml Physical Exam General: mild distress, Other (Confused) Heart: Other (Tachycardic and irregularly irregular) Lungs: Crackles Abdomen: Soft Extremities: No edema Skin: No rashes Labs Labs: Laboratory Tests Test 12/13/20 16:42 12/13/20 21:17 12/13/20 22:50 12/14/20 05:20 Glucose (Fingerstick) 159 mg/dL (70-99) 179 mg/dL (70-99) Heparin Anti-Xa Act, Unfractionated 0.17 IU/mL (0.30-0.70) 0.29 IU/mL (0.30-0.70) White Blood Count 12.1 x10^3/uL (4.0-11.0) Red Blood Count 4.41 x10^6/uL (4.30-5.70) Hemoglobin 13.0 g/dL (13.0-17.5) Hematocrit 38.8 % (39.0-53.0) Mean Corpuscular Volume 88 fL (79-100) Mean Corpuscular Hemoglobin 30 pg (25-35) Mean Corpuscular Hemoglobin Concent 34 g/dL (31-37) Red Cell Distribution Width 13.8 % (11.5-14.5) Platelet Count 418 x10^3/uL (140-400) Sodium Level 141 mmol/L (136-145) Potassium Level 3.8 mmol/L (3.5-5.1) Chloride Level 106 mmol/L (98-107) Carbon Dioxide Level 29 mmol/L (21-32) Anion Gap 6 (6-14) Blood Urea Nitrogen 36 mg/dL (8-26) Creatinine 1.2 mg/dL (0.7-1.3) Estimated GFR (Cockcroft-Gault) 59.5 BUN/Creatinine Ratio 30 (6-20) Glucose Level 142 mg/dL (70-99) Calcium Level 8.2 mg/dL (8.5-10.1) Total Bilirubin 0.4 mg/dL (0.2-1.0) Aspartate Amino Transf (AST/SGOT) 28 U/L (15-37) Alanine Aminotransferase (ALT/SGPT) 22 U/L (16-63) Alkaline Phosphatase 185 U/L (46-116) Total Protein 5.6 g/dL (6.4-8.2) Albumin 1.4 g/dL (3.4-5.0) Albumin/Globulin Ratio 0.3 (1.0-1.7) Test 12/14/20 08:34 Glucose (Fingerstick) 112 mg/dL (70-99) Assessment and Plan Assessmemt and Plan Covid-19 respiratory failure Advanced age COPD, emphysema, CAD, hyperlipidemia, sleep apnea, poorly controlled diabetes Plan Respiratory isolation Cardiac monitoring Covid protocol Remdesivir Zosyn Doxycycline Multiple vitamins with minerals Robitussin with codeine cough syrup Aspirin Heparin for DVT prophylaxis Continue O2 per Vapotherm Trend labs Home meds DVT prophylaxis Full code Prognosis extremely guarded CC time 31-minute Comment Review of Relevant I have reviewed the following items tina (where applicable) has been applied. Medications: Current Medications Medications (Trade) Dose Ordered Sig/Vandana Route PRN Reason Start Time Stop Time Status Last Admin Dose Admin Lactobacillus Rhamnosus (Culturelle) 1 cap BID PO 12/13/20 21:00 12/14/20 08:21 Piperacillin Sod/ Tazobactam Sod 3.375 gm/Sodium Chloride 50 ml @ 100 mls/hr Q6HRS IV 12/13/20 12:00 12/14/20 05:30 Digoxin (Lanoxin) 500 mcg 1X ONCE IV 12/13/20 14:00 12/13/20 14:01 DC 12/13/20 14:30 Sterile Water (WATER for RESP) 2,000 ml CONT PRN INH VIA VAPOTHERM DEVICE 12/13/20 15:15 12/13/20 15:08 Heparin Sodium/ Dextrose 250 ml @ 10.104 mls/ hr CONT PRN IV PER PROTOCOL 12/13/20 15:15 12/14/20 10:55 Heparin Sodium (Porcine) (Heparin Sodium) 2,100 unit PRN Q6HRS PRN IV FOR UFH LEVEL LESS THAN 0.2 12/13/20 15:15 12/13/20 23:26 Diltiazem HCl 125 mg/Sodium Chloride 125 ml @ 5 mls/hr CONT PRN IV PER PROTOCOL 12/13/20 15:15 12/14/20 08:39 Justifications for Admission Other Justification HANNAH PARKER III DO Dec 14, 2020 11:52
[2020-12-14] MEDS: HEPARIN for IV BOLUS 10,000 UNIT/10 ML VIAL. IV PRN (14:02)
--- NOTE | 2020-12-14 14:21 | NUR ---
SS following up with discharge planning. SS reviewed pt chart and discussed with pt RN. Pt is currently requiring Vapotherm at 40 liters and 100%. COVID19 positive. Pt on Cardizem and Heparin drip. Pt on IV Zosyn, IV Remdesivir, IV Doxycycline, and IV Decadron. Not stable. SS will continue to follow for discharge planning.
--- NOTE | 2020-12-14 16:19 | NUR ---
DISCHARGED PATIENT HOME. DISCHARGE INSTRUCTIONS GIVEN. PIV AND HEART MONITOR REMOVED. ESCORTED PATIENT OFF UNIT PER WHEELCHAIR INTO A PRIVATE VEHICLE.
[2020-12-14] MEDS: REMDESIVIR 100mg in NORMAL SALINE 250ML X 4 DAYS IV SCH (17:10)
[2020-12-14] MEDS: INSULIN GLARGINE SYRINGE. SQ SCH (22:01)
[2020-12-14 22:56] LABS: BASE EXCESS ABG 0 mmol/L (-3-3); HCO3 ABG 21 mmol/L (21-28); PCO2 ABG 26 mmHg (35-46); PO2 ABG 80 mmHg (65-108); SAT O2 ABG 96 % (92-99)
[2020-12-14 22:59] LABS: FIO2 ABG 100
[2020-12-15] MEDS: PIPERACILLIN/TAZOBACTAM 3.375 GM in IV NORMAL SALINE 50ML 50 ML IV SCH ×4 (00:25→17:32)
[2020-12-15] MEDS: HEPARIN 25,000UTS/250ML PREMIX 250 ML IV PRN (02:52)
[2020-12-15 03:29] VITALS: BP 163/104
[2020-12-15 06:57] LABS: ALBUMIN 1.6 g/dL (3.4-5.0); ALBUMIN/GLOBULIN RATIO 0.3 (1.0-1.7); CALCIUM 8.5 mg/dL (8.5-10.1); CREATININE 1.3 mg/dL (0.7-1.3); GFR 54.3; POTASSIUM 4.4 mmol/L (3.5-5.1); TOTAL BILIRUBIN 0.5 mg/dL (0.2-1.0); TOTAL PROTEIN 6.2 g/dL (6.4-8.2)
[2020-12-15 08:00] VITALS: BP 152/100
[2020-12-15] MEDS: ASPIRIN CHEWABLE 81 MG TABLET. PO SCH (08:00)
--- NOTE | 2020-12-15 08:15 | NUR ---
Pt extremely aggressive and agitated this AM. Left forearm IV infiltrated and IV out. Left wrist IV also removed by patient. Pt kicking, punching, and spitting on staff. Pt also aggressive verbally towards staff. Upon assisting patient with being adjusted in bed, pt took bipap off and broke the face mask into pieces. Physician notified while staff held bipap mask in place. Zyprexa order given. New IV started and other orders received. Pt resting in bed and appears to be more calm. Mitts placed on patient, bed alarm on, and bed in low position. Call light within reach.
[2020-12-15 08:26] LABS: BASE EXCESS ABG 1 mmol/L (-3-3); HCO3 ABG 24 mmol/L (21-28); PCO2 ABG 33 mmHg (35-46); PO2 ABG 52 mmHg (65-108); SAT O2 ABG 86 % (92-99)
--- NOTE | 2020-12-15 08:29 | PDOC ---
[employer] PROGRESS NOTE Date of Service DOS: DATE: 12/15/20 TIME: 08:24 Chief Complaint Chief Complaint Covid-19 respiratory failure Acute hypoxic respiratory failure Advanced age COPD - emphysema CAD Hyperlipidemia Sleep apnea Poorly controlled diabetes Atrial fibrillation with rapid ventricular response - History of Present Illness History of Present Illness Mr Hamilton is a 70-year-old male w/ PMHx COPD, CAD, HLD, ELLIOT, DM2 (a1c 14) admitted for trouble with balance on 12/05/2020. Was found to be COVID positive, he was transferred to [facility]. 12/12: On 100% nonrebreather. Pleasantly confused. He appears quite ill. Went into rapid afib. Cardiology and pulmonology consulted. 12/13: Currently on 100% nonrebreather. Pleasantly confused. He keeps pulling of f his nonrebreather and desats to 60. 12/14: Had to change him over to Vapotherm 40 L 100% FiO2 currently satting 95% (he kept pulling his mask off of the nonrebreather). He still remains quite ill Febrile. Continues to pull off his oxygen. Pulling on his IVs overnight. Took off BIPAP. Responsive to IM zyprexa. Due to multiple blood draws and loss of IV access, requires heparin GTT and cardizem will order PICC Vitals/I&O Vitals/I&O: Vital Signs Date Time Temp Pulse Resp B/P (MAP) Pulse Ox O2 Delivery O2 Flow Rate FiO2 12/15/20 05:28 96 BiPAP/CPAP 12/15/20 03:29 98.0 125 20 163/104 (123) 98.0 12/14/20 20:00 40.0 I & O 12/14/20 12/14/20 12/15/20 15:00 23:00 07:00 Intake Total 0 ml 350 ml 703 ml Output Total 800 ml 375 ml Balance 0 ml -450 ml 328 ml Physical Exam General: mild distress, Other (Confused) Heart: Other (Tachycardic and irregularly irregular) Lungs: Clear Abdomen: Soft Extremities: No edema Skin: No rashes Labs Labs: Laboratory Tests Test 12/14/20 08:34 12/14/20 12:18 12/14/20 12:23 12/14/20 17:11 Glucose (Fingerstick) 112 mg/dL (70-99) 159 mg/dL (70-99) 226 mg/dL (70-99) Heparin Anti-Xa Act, Unfractionated < 0.10 IU/mL (0.30-0.70) Test 12/14/20 19:55 12/14/20 20:50 12/14/20 21:17 12/14/20 23:55 Heparin Anti-Xa Act, Unfractionated 0.30 IU/mL (0.30-0.70) 0.43 IU/mL (0.30-0.70) O2 Saturation 96 % (92-99) Arterial Blood pH 7.53 (7.35-7.45) Arterial Blood pCO2 at Patient Temp 26 mmHg (35-46) Arterial Blood pO2 at Patient Temp 80 mmHg (65-108) Arterial Blood HCO3 21 mmol/L (21-28) Arterial Blood Base Excess 0 mmol/L (-3-3) FiO2 100 Glucose (Fingerstick) 246 mg/dL (70-99) Test 12/15/20 05:55 12/15/20 08:09 Heparin Anti-Xa Act, Unfractionated < 0.10 IU/mL (0.30-0.70) Sodium Level 140 mmol/L (136-145) Potassium Level 4.4 mmol/L (3.5-5.1) Chloride Level 103 mmol/L (98-107) Carbon Dioxide Level 26 mmol/L (21-32) Anion Gap 11 (6-14) Blood Urea Nitrogen 38 mg/dL (8-26) Creatinine 1.3 mg/dL (0.7-1.3) Estimated GFR (Cockcroft-Gault) 54.3 BUN/Creatinine Ratio 29 (6-20) Glucose Level 309 mg/dL (70-99) Calcium Level 8.5 mg/dL (8.5-10.1) Total Bilirubin 0.5 mg/dL (0.2-1.0) Aspartate Amino Transf (AST/SGOT) 23 U/L (15-37) Alanine Aminotransferase (ALT/SGPT) 21 U/L (16-63) Alkaline Phosphatase 205 U/L (46-116) Total Protein 6.2 g/dL (6.4-8.2) Albumin 1.6 g/dL (3.4-5.0) Albumin/Globulin Ratio 0.3 (1.0-1.7) Glucose (Fingerstick) 306 mg/dL (70-99) Comment Review of Relevant I have reviewed the following items tina (where applicable) has been applied. Justifications for Admission Other Justification BRITTNY FLORES MD Dec 15, 2020 08:29
[2020-12-15] MEDS ORDERED: OLANZapine IM 10 MG VIAL. IM ONE (09:00)
[2020-12-15] MEDS: LACTOBACILLUS RHAMNOSUS GG 1 CAPSULE. PO SCH ×2 (09:00→20:15)
[2020-12-15] MEDS: SENNOSIDES/DOCUSATE 8.6/50MG TABLET. PO SCH ×2 (09:00→20:15)
[2020-12-15] MEDS: DOXYCYCLINE HYCLATE 100 MG in IV DEXTROSE 5% 100ML 100 ML IV SCH ×2 (09:00→20:20)
[2020-12-15] MEDS: MULTIVITAMIN with MINERAL TABLET. PO SCH (09:00)
[2020-12-15 09:05] LABS: FIO2 ABG 55% BIPAP
--- NOTE | 2020-12-15 09:23 | PDOC ---
PULMONARY PROGRESS NOTES DATE: 12/15/20 TIME: 09:23 Subjective Currently on Vapotherm, O2 sat greater than 92% 40 L flow, FiO2 100% Vitals Vital Signs Date Time Temp Pulse Resp B/P (MAP) Pulse Ox O2 Delivery O2 Flow Rate FiO2 12/15/20 09:01 BiPAP/CPAP 12/15/20 08:31 24 96 40.0 12/15/20 08:00 96.0 103 152/100 (117) 96.0 ROS: No Nausea, No Chest Pain, No Abdominal Pain, No Increase Cough Lungs: Clear Cardiovascular: S1, S2 Abdomen: Soft Neuro Exam: Alert Extremities: No Edema Skin: Warm Labs Laboratory Tests Test 12/13/20 10:27 12/13/20 16:42 12/13/20 21:17 12/13/20 22:50 Glucose (Fingerstick) 104 mg/dL (70-99) 159 mg/dL (70-99) 179 mg/dL (70-99) Heparin Anti-Xa Act, Unfractionated 0.17 IU/mL (0.30-0.70) Test 12/14/20 05:20 12/14/20 08:34 12/14/20 12:18 12/14/20 12:23 White Blood Count 12.1 x10^3/uL (4.0-11.0) Red Blood Count 4.41 x10^6/uL (4.30-5.70) Hemoglobin 13.0 g/dL (13.0-17.5) Hematocrit 38.8 % (39.0-53.0) Mean Corpuscular Volume 88 fL (79-100) Mean Corpuscular Hemoglobin 30 pg (25-35) Mean Corpuscular Hemoglobin Concent 34 g/dL (31-37) Red Cell Distribution Width 13.8 % (11.5-14.5) Platelet Count 418 x10^3/uL (140-400) Heparin Anti-Xa Act, Unfractionated 0.29 IU/mL (0.30-0.70) < 0.10 IU/mL (0.30-0.70) Sodium Level 141 mmol/L (136-145) Potassium Level 3.8 mmol/L (3.5-5.1) Chloride Level 106 mmol/L (98-107) Carbon Dioxide Level 29 mmol/L (21-32) Anion Gap 6 (6-14) Blood Urea Nitrogen 36 mg/dL (8-26) Creatinine 1.2 mg/dL (0.7-1.3) Estimated GFR (Cockcroft-Gault) 59.5 BUN/Creatinine Ratio 30 (6-20) Glucose Level 142 mg/dL (70-99) Calcium Level 8.2 mg/dL (8.5-10.1) Total Bilirubin 0.4 mg/dL (0.2-1.0) Aspartate Amino Transf (AST/SGOT) 28 U/L (15-37) Alanine Aminotransferase (ALT/SGPT) 22 U/L (16-63) Alkaline Phosphatase 185 U/L (46-116) Total Protein 5.6 g/dL (6.4-8.2) Albumin 1.4 g/dL (3.4-5.0) Albumin/Globulin Ratio 0.3 (1.0-1.7) Glucose (Fingerstick) 112 mg/dL (70-99) 159 mg/dL (70-99) Test 12/14/20 17:11 12/14/20 19:55 12/14/20 20:50 12/14/20 21:17 Glucose (Fingerstick) 226 mg/dL (70-99) 246 mg/dL (70-99) Heparin Anti-Xa Act, Unfractionated 0.30 IU/mL (0.30-0.70) O2 Saturation 96 % (92-99) Arterial Blood pH 7.53 (7.35-7.45) Arterial Blood pCO2 at Patient Temp 26 mmHg (35-46) Arterial Blood pO2 at Patient Temp 80 mmHg (65-108) Arterial Blood HCO3 21 mmol/L (21-28) Arterial Blood Base Excess 0 mmol/L (-3-3) FiO2 100 Test 12/14/20 23:55 12/15/20 05:55 12/15/20 08:09 12/15/20 08:20 Heparin Anti-Xa Act, Unfractionated 0.43 IU/mL (0.30-0.70) < 0.10 IU/mL (0.30-0.70) Sodium Level 140 mmol/L (136-145) Potassium Level 4.4 mmol/L (3.5-5.1) Chloride Level 103 mmol/L (98-107) Carbon Dioxide Level 26 mmol/L (21-32) Anion Gap 11 (6-14) Blood Urea Nitrogen 38 mg/dL (8-26) Creatinine 1.3 mg/dL (0.7-1.3) Estimated GFR (Cockcroft-Gault) 54.3 BUN/Creatinine Ratio 29 (6-20) Glucose Level 309 mg/dL (70-99) Calcium Level 8.5 mg/dL (8.5-10.1) Total Bilirubin 0.5 mg/dL (0.2-1.0) Aspartate Amino Transf (AST/SGOT) 23 U/L (15-37) Alanine Aminotransferase (ALT/SGPT) 21 U/L (16-63) Alkaline Phosphatase 205 U/L (46-116) Total Protein 6.2 g/dL (6.4-8.2) Albumin 1.6 g/dL (3.4-5.0) Albumin/Globulin Ratio 0.3 (1.0-1.7) Glucose (Fingerstick) 306 mg/dL (70-99) O2 Saturation 86 % (92-99) Arterial Blood pH 7.48 (7.35-7.45) Arterial Blood pCO2 at Patient Temp 33 mmHg (35-46) Arterial Blood pO2 at Patient Temp 52 mmHg (65-108) Arterial Blood HCO3 24 mmol/L (21-28) Arterial Blood Base Excess 1 mmol/L (-3-3) FiO2 55% bipap Laboratory Tests Test 12/14/20 12:18 12/14/20 12:23 12/14/20 17:11 12/14/20 19:55 Glucose (Fingerstick) 159 mg/dL (70-99) 226 mg/dL (70-99) Heparin Anti-Xa Act, Unfractionated < 0.10 IU/mL (0.30-0.70) 0.30 IU/mL (0.30-0.70) Test 12/14/20 20:50 12/14/20 21:17 12/14/20 23:55 12/15/20 05:55 O2 Saturation 96 % (92-99) Arterial Blood pH 7.53 (7.35-7.45) Arterial Blood pCO2 at Patient Temp 26 mmHg (35-46) Arterial Blood pO2 at Patient Temp 80 mmHg (65-108) Arterial Blood HCO3 21 mmol/L (21-28) Arterial Blood Base Excess 0 mmol/L (-3-3) FiO2 100 Glucose (Fingerstick) 246 mg/dL (70-99) Heparin Anti-Xa Act, Unfractionated 0.43 IU/mL (0.30-0.70) < 0.10 IU/mL (0.30-0.70) Sodium Level 140 mmol/L (136-145) Potassium Level 4.4 mmol/L (3.5-5.1) Chloride Level 103 mmol/L (98-107) Carbon Dioxide Level 26 mmol/L (21-32) Anion Gap 11 (6-14) Blood Urea Nitrogen 38 mg/dL (8-26) Creatinine 1.3 mg/dL (0.7-1.3) Estimated GFR (Cockcroft-Gault) 54.3 BUN/Creatinine Ratio 29 (6-20) Glucose Level 309 mg/dL (70-99) Calcium Level 8.5 mg/dL (8.5-10.1) Total Bilirubin 0.5 mg/dL (0.2-1.0) Aspartate Amino Transf (AST/SGOT) 23 U/L (15-37) Alanine Aminotransferase (ALT/SGPT) 21 U/L (16-63) Alkaline Phosphatase 205 U/L (46-116) Total Protein 6.2 g/dL (6.4-8.2) Albumin 1.6 g/dL (3.4-5.0) Albumin/Globulin Ratio 0.3 (1.0-1.7) Test 12/15/20 08:09 12/15/20 08:20 Glucose (Fingerstick) 306 mg/dL (70-99) O2 Saturation 86 % (92-99) Arterial Blood pH 7.48 (7.35-7.45) Arterial Blood pCO2 at Patient Temp 33 mmHg (35-46) Arterial Blood pO2 at Patient Temp 52 mmHg (65-108) Arterial Blood HCO3 24 mmol/L (21-28) Arterial Blood Base Excess 1 mmol/L (-3-3) FiO2 55% bipap Medications Active Scripts Medications Dose Route/Sig Max Daily Dose Days Date Category Gabapentin 600 Mg Tablet 600 Mg PO BID 12/12/20 Reported Aspirin 81 Mg Tab.chew 1 Tab PO DAILY 12/12/20 Reported Pravastatin Sodium 20 Mg Tablet 1 Tab PO QHS 12/12/20 Reported Escitalopram Oxalate 10 Mg Tablet 1 Tab PO DAILY 12/12/20 Reported Cetirizine Hcl 10 Mg Tablet 1 Tab PO DAILY 12/12/20 Reported Lisinopril 20 Mg Tablet 1 Tab PO DAILY 12/12/20 Reported Bupropion Xl (Bupropion Hcl) 150 Mg Tab.er.24h 1 Tab PO BID 12/12/20 Reported Nexium Capsule (Esomeprazole Magnesium) 40 Mg Capsule.dr 1 Cap PO DAILY 12/12/20 Reported Lantus Solostar (Insulin Glargine,Hum.rec.anlog) 100 Unit/1 Ml Insuln.pen 30 Unit SQ QHS 12/12/20 Reported Impression . IMPRESSION: 1. Acute hypoxemic respiratory failure secondary to COVID-19 viral pneumonia. 2. COVID-19 viral pneumonia. 3. Type 2 diabetes. 4. Severe protein malnutrition, present upon admission. 5. Acute toxic encephalopathy, present upon admission Plan . Updated 12/15 Continue Vapotherm Empiric antibiotics Remdesivir dexamethasone Updated 12/14 Continue support with remdesivir dexamethasone Empiric antibiotics Oxygen supplementation Noted patient is a full code CR MANDUJANO MD Dec 15, 2020 09:23
[2020-12-15] MEDS: DEXAMETHASONE SOD PHOS 4 MG/ML VIAL IVP SCH (09:47)
[2020-12-15] MEDS: INSULIN LISPRO 300 UNITS/3 ML VIAL. SQ SCH ×3 (09:48→18:19)
[2020-12-15 11:00] VITALS: BP 141/85
--- NOTE | 2020-12-15 11:13 | NUR ---
SS following up with discharge planning SS reviewed pt chart and discussed with pt RN. Pt is currently on BIPAP at 75%. COVID19 positive. Pt on IV Zosyn, IV Remdesivir, IV Doxycycline, and IV Decadron. Heparin and Cardizem drip. PICC line ordered. Pt agitated today and given IM Zyprexa. Not stable. SS will continue to follow for discharge planning.
[2020-12-15] MEDS: HEPARIN for IV BOLUS 10,000 UNIT/10 ML VIAL. IV PRN (13:06)
[2020-12-15 15:00] VITALS: BP 126/71
--- NOTE | 2020-12-15 15:17 | PDOC ---
ROSA CUELLO ELEMENTARY READING SPECIALIST 12/15/20 1517: CARDIO Progress Notes Date and Time Date of Service 12/15/20 Time of Evaluation 1215 Subjective Subjective: No Chest Pain, Other (BiPAP ) Vitals Vitals Vital Signs Date Time Temp Pulse Resp B/P (MAP) Pulse Ox O2 Delivery O2 Flow Rate FiO2 12/15/20 12:50 97 BiPAP/CPAP 12/15/20 11:46 40.0 12/15/20 11:00 97.2 93 17 141/85 (103) 97.2 Weight Weight [ ] Input and Output Intake and Output Intake and Output 12/15/20 07:00 Intake Total 1053 ml Output Total 1175 ml Balance -122 ml Intake Oral 100 ml IV Total 953 ml Output Urine Total 1175 ml # Bowel Movements 1 Laboratory Labs Laboratory Tests Test 12/14/20 17:11 12/14/20 19:55 12/14/20 20:50 12/14/20 21:17 Glucose (Fingerstick) 226 mg/dL (70-99) 246 mg/dL (70-99) Heparin Anti-Xa Act, Unfractionated 0.30 IU/mL (0.30-0.70) O2 Saturation 96 % (92-99) Arterial Blood pH 7.53 (7.35-7.45) Arterial Blood pCO2 at Patient Temp 26 mmHg (35-46) Arterial Blood pO2 at Patient Temp 80 mmHg (65-108) Arterial Blood HCO3 21 mmol/L (21-28) Arterial Blood Base Excess 0 mmol/L (-3-3) FiO2 100 Test 12/14/20 23:55 12/15/20 05:55 12/15/20 08:09 12/15/20 08:20 Heparin Anti-Xa Act, Unfractionated 0.43 IU/mL (0.30-0.70) < 0.10 IU/mL (0.30-0.70) Sodium Level 140 mmol/L (136-145) Potassium Level 4.4 mmol/L (3.5-5.1) Chloride Level 103 mmol/L (98-107) Carbon Dioxide Level 26 mmol/L (21-32) Anion Gap 11 (6-14) Blood Urea Nitrogen 38 mg/dL (8-26) Creatinine 1.3 mg/dL (0.7-1.3) Estimated GFR (Cockcroft-Gault) 54.3 BUN/Creatinine Ratio 29 (6-20) Glucose Level 309 mg/dL (70-99) Calcium Level 8.5 mg/dL (8.5-10.1) Total Bilirubin 0.5 mg/dL (0.2-1.0) Aspartate Amino Transf (AST/SGOT) 23 U/L (15-37) Alanine Aminotransferase (ALT/SGPT) 21 U/L (16-63) Alkaline Phosphatase 205 U/L (46-116) Total Protein 6.2 g/dL (6.4-8.2) Albumin 1.6 g/dL (3.4-5.0) Albumin/Globulin Ratio 0.3 (1.0-1.7) Glucose (Fingerstick) 306 mg/dL (70-99) O2 Saturation 86 % (92-99) Arterial Blood pH 7.48 (7.35-7.45) Arterial Blood pCO2 at Patient Temp 33 mmHg (35-46) Arterial Blood pO2 at Patient Temp 52 mmHg (65-108) Arterial Blood HCO3 24 mmol/L (21-28) Arterial Blood Base Excess 1 mmol/L (-3-3) FiO2 55% bipap Test 12/15/20 11:28 Glucose (Fingerstick) 313 mg/dL (70-99) Physical Exam HEENT: Neck Supple W Full Motion Chest: Symmetric LUNGS: Other (on BiPAP ) Heart: irregularly irregular (AFIB ) Abdomen: Soft N/T Extremities: No Edema Neurology: confused, other (combative at times ) Assessment Assessment 1. Atrial fibrillation with RVR, new onset in the setting of COVID PNA. Rate controlled on Cardizem gtt. on heparin for stroke prophylaxis. 2. Acute hypoxic respiratory failure secondary to COVID PNA. requiring BiPAP support 3. Hypertension; better controlled 4. Hyperlipidemia: Statins 5. CAD; details unknown. appears clinically stable 6. Diabetes, II 7. Protein calorie malnutrition 8. Encephalopathy with underlying dementia Recommendations Given confusion, combativeness, will convert IV gtts. Start metoprolol IVP q 6 hr for rate control and titrate off Cardizem gtt Will also use Lovenox for stroke prophylaxis and stop heparin gtt Will convert above to oral metoprolol and Eliquis when able to take PO Outpatient echo Consider outpatient CV, once recovered from COVID, if patient remains in AFIB Ongoing lung optimization, treatment of COVID as per pulmonary Justicifation of Admission Dx: Justifications for Admission: Justification of Admission Dx: Yes CHF: Cardiac Arrhythmias JEROMY ZAVALA MD 12/15/202108: CARDIO Progress Notes Assessment Assessment Patient seen and examined. Agree with CONSTRUCTION CREW MEMBER's assessment and plan. AF rate better controlled Change cardizem and AC to PO once able to take PO Chech 2D echo to assess LVF once covid recovered Continue current treatment for covid pneumonia ROSA CUELLO APRN Dec 15, 2020 15:17 JEROMY ZAVALA MD Dec 15, 2020 21:09
[2020-12-15] MEDS ORDERED: METOPROLOL IV PUSH 5 MG/5 ML VIAL. IVP SCH (15:30)
--- NOTE | 2020-12-15 17:15 | NUR ---
NKDA BUN 38 Cr 1.3 Platelets 418 Order Verified Y Consent signed Y Past Medical/Surgical history and current diagnosis reviewed Y Patient Medical /Surgical History Related to PICC line placement None Arrhythmias Diabetes Infectious Disease consult Special considerations for PICC line placement None PICC placement indication Caustic medication class drug usage, terminal clerk antibiotic usage, Eben FREY
--- NOTE | 2020-12-15 17:17 | RAD ---
EXAM: CHEST ONE VIEW. HISTORY: PICC line placement. COMPARISON: 12/11/2020. FINDINGS: A frontal view of the chest is obtained. A right arm PICC line has its tip in the superior vena cava. Bilateral interstitial and airspace opacities have a basilar predominance. There are centrilobular em physematous changes in the apices. There is no pneumothorax or pleural effusion. The heart is not enl arged. IMPRESSION: 1. Bilateral interstitial and airspace infiltrates have improved since the prior study. Electronically signed by: Grace Whitlock MD (12/15/2020 5:15 PM) [id number]
--- NOTE | 2020-12-15 17:18 | NUR ---
Procedure: Following complete explanation of the PICC procedure including the indications, risks, and potential complications, informed consent was obtained. The possibility for infection was discussed along with signs, symptoms, and prevention. All the questions were answered. Written and verbal patient education was provided. Hand hygiene performed. Standardized central line checklist was utilized. The patient was placed in the supine position, the arm was prepped with chlorhexidine and patient draped with maximum sterile barrier. 5 mL 1% lidocaine was infiltrated into the skin to provide local anesthesia. A thorough assessment of right upper extremity completed. Using real-time ultrasound guidance and standardized micro puncture set, the brachial vein was punctured and a peel away sheath was placed using the modified Seldinger technique. A tip location device was used to ensure adequate catheter placement. The catheter was secured using a securement device and an antimicrobial patch was applied directly on the insertion site followed by a transparent dressing. All ports withdraw blood and flush without resistance. Patient tolerated the procedure without apparent complication(s). Triple Lumen Power PICC placement successful and uncomplicated. Placement verified by EKG tip confirmation system and/or chest x-ray. Complications: None
[2020-12-15] MEDS: METOPROLOL IV PUSH 5 MG/5 ML VIAL. IVP SCH (17:33)
[2020-12-15] MEDS: REMDESIVIR 100mg in NORMAL SALINE 250ML X 4 DAYS IV SCH (17:33)
[2020-12-15 19:00] VITALS: BP 141/83
[2020-12-15] MEDS: INSULIN GLARGINE SYRINGE. SQ SCH (21:00)
[2020-12-15 23:00] VITALS: BP 92/60
[2020-12-16] VITALS (7 sets, daily range): BP systolic 135–167; BP diastolic 73–101
[2020-12-16] MEDS: PIPERACILLIN/TAZOBACTAM 3.375 GM in IV NORMAL SALINE 50ML 50 ML IV SCH ×4 (01:34→17:11)
[2020-12-16] MEDS: METOPROLOL IV PUSH 5 MG/5 ML VIAL. IVP SCH ×4 (06:15→17:10)
[2020-12-16] MEDS: ASPIRIN CHEWABLE 81 MG TABLET. PO SCH (08:00)
[2020-12-16] MEDS: INSULIN LISPRO 300 UNITS/3 ML VIAL. SQ SCH ×3 (08:38→17:09)
[2020-12-16] MEDS: DOXYCYCLINE HYCLATE 100 MG in IV DEXTROSE 5% 100ML 100 ML IV SCH ×2 (08:39→20:08)
[2020-12-16] MEDS: MULTIVITAMIN with MINERAL TABLET. PO SCH (08:39)
[2020-12-16] MEDS: LACTOBACILLUS RHAMNOSUS GG 1 CAPSULE. PO SCH ×2 (08:39→19:43)
[2020-12-16] MEDS: SENNOSIDES/DOCUSATE 8.6/50MG TABLET. PO SCH ×2 (08:39→19:44)
[2020-12-16] MEDS: DEXAMETHASONE SOD PHOS 4 MG/ML VIAL IVP SCH (08:39)
--- NOTE | 2020-12-16 08:44 | PDOC ---
PULMONARY PROGRESS NOTES DATE: 12/16/20 TIME: 08:44 Subjective Patient currently on BiPAP 16/, FiO2 75%. He appears to be comfort Vitals Vital Signs Date Time Temp Pulse Resp B/P (MAP) Pulse Ox O2 Delivery O2 Flow Rate FiO2 12/16/20 08:23 94 BiPAP/CPAP 12/16/20 07:00 97.0 83 18 144/88 (106) 97.0 12/15/20 11:46 40.0 ROS: No Nausea, No Chest Pain, No Abdominal Pain, No Increase Cough Lungs: Clear Cardiovascular: S1, S2 Abdomen: Soft Neuro Exam: Alert Extremities: No Edema Skin: Warm Labs Laboratory Tests Test 12/14/20 12:18 12/14/20 12:23 12/14/20 17:11 12/14/20 19:55 Glucose (Fingerstick) 159 mg/dL (70-99) 226 mg/dL (70-99) Heparin Anti-Xa Act, Unfractionated < 0.10 IU/mL (0.30-0.70) 0.30 IU/mL (0.30-0.70) Test 12/14/20 20:50 12/14/20 21:17 12/14/20 23:55 12/15/20 05:55 O2 Saturation 96 % (92-99) Arterial Blood pH 7.53 (7.35-7.45) Arterial Blood pCO2 at Patient Temp 26 mmHg (35-46) Arterial Blood pO2 at Patient Temp 80 mmHg (65-108) Arterial Blood HCO3 21 mmol/L (21-28) Arterial Blood Base Excess 0 mmol/L (-3-3) FiO2 100 Glucose (Fingerstick) 246 mg/dL (70-99) Heparin Anti-Xa Act, Unfractionated 0.43 IU/mL (0.30-0.70) < 0.10 IU/mL (0.30-0.70) Sodium Level 140 mmol/L (136-145) Potassium Level 4.4 mmol/L (3.5-5.1) Chloride Level 103 mmol/L (98-107) Carbon Dioxide Level 26 mmol/L (21-32) Anion Gap 11 (6-14) Blood Urea Nitrogen 38 mg/dL (8-26) Creatinine 1.3 mg/dL (0.7-1.3) Estimated GFR (Cockcroft-Gault) 54.3 BUN/Creatinine Ratio 29 (6-20) Glucose Level 309 mg/dL (70-99) Calcium Level 8.5 mg/dL (8.5-10.1) Total Bilirubin 0.5 mg/dL (0.2-1.0) Aspartate Amino Transf (AST/SGOT) 23 U/L (15-37) Alanine Aminotransferase (ALT/SGPT) 21 U/L (16-63) Alkaline Phosphatase 205 U/L (46-116) Total Protein 6.2 g/dL (6.4-8.2) Albumin 1.6 g/dL (3.4-5.0) Albumin/Globulin Ratio 0.3 (1.0-1.7) Test 12/15/20 08:09 12/15/20 08:20 12/15/20 11:28 12/15/20 18:15 Glucose (Fingerstick) 306 mg/dL (70-99) 313 mg/dL (70-99) 271 mg/dL (70-99) O2 Saturation 86 % (92-99) Arterial Blood pH 7.48 (7.35-7.45) Arterial Blood pCO2 at Patient Temp 33 mmHg (35-46) Arterial Blood pO2 at Patient Temp 52 mmHg (65-108) Arterial Blood HCO3 24 mmol/L (21-28) Arterial Blood Base Excess 1 mmol/L (-3-3) FiO2 55% bipap Test 12/15/20 20:04 12/16/20 08:19 Glucose (Fingerstick) 201 mg/dL (70-99) 235 mg/dL (70-99) Laboratory Tests Test 12/15/20 11:28 12/15/20 18:15 12/15/20 20:04 12/16/20 08:19 Glucose (Fingerstick) 313 mg/dL (70-99) 271 mg/dL (70-99) 201 mg/dL (70-99) 235 mg/dL (70-99) Medications Active Scripts Medications Dose Route/Sig Max Daily Dose Days Date Category Gabapentin 600 Mg Tablet 600 Mg PO BID 12/12/20 Reported Aspirin 81 Mg Tab.chew 1 Tab PO DAILY 12/12/20 Reported Pravastatin Sodium 20 Mg Tablet 1 Tab PO QHS 12/12/20 Reported Escitalopram Oxalate 10 Mg Tablet 1 Tab PO DAILY 12/12/20 Reported Cetirizine Hcl 10 Mg Tablet 1 Tab PO DAILY 12/12/20 Reported Lisinopril 20 Mg Tablet 1 Tab PO DAILY 12/12/20 Reported Bupropion Xl (Bupropion Hcl) 150 Mg Tab.er.24h 1 Tab PO BID 12/12/20 Reported Nexium Capsule (Esomeprazole Magnesium) 40 Mg Capsule. 1 Cap PO DAILY 12/12/20 Reported Lantus Solostar (Insulin Glargine,Hum.rec.anlog) 100 Unit/1 Ml Insuln.pen 30 Unit SQ QHS 12/12/20 Reported Impression . IMPRESSION: 1. Acute hypoxemic respiratory failure secondary to COVID-19 viral pneumonia. 2. COVID-19 viral pneumonia. 3. Type 2 diabetes. 4. Severe protein malnutrition, present upon admission. 5. Acute toxic encephalopathy, present upon admission 6. New onset A. fib 7. Coronary artery disease Plan . Updated 12/16 Patient better on BiPAP today Continue current support Remdesivir, dexamethasone Empiric antibiotics Patient is full DNR. Follow cardiology input Updated 12/15 Continue Vapotherm Empiric antibiotics Remdesivir dexamethasone Updated 12/14 Continue support with remdesivir dexamethasone Empiric antibiotics Oxygen supplementation Noted patient is a full code CR MANDUJANO MD Dec 16, 2020 08:44
--- NOTE | 2020-12-16 12:03 | PDOC ---
UMA CONNELL STEMHOLE BORER 12/16/20 1203: CARDIO Progress Notes Date and Time Date of Service 12/16/2020 Time of Evaluation 1130 Subjective Subjective: No Chest Pain, Other (BiPAP ) Vitals Vitals Vital Signs Date Time Temp Pulse Resp B/P (MAP) Pulse Ox O2 Delivery O2 Flow Rate FiO2 12/16/20 11:43 94 BiPAP/CPAP 12/16/20 11:00 97.6 100 19 146/88 (107) 97.6 12/16/20 08:00 40.0 Weight Weight [ ] Input and Output Intake and Output Intake and Output 12/16/20 07:00 Intake Total 280 ml Output Total 1850 ml Balance -1570 ml Intake Oral 0 ml IV Total 280 ml Output Urine Total 1850 ml # Voids 1 Laboratory Labs Laboratory Tests Test 12/15/20 18:15 12/15/20 20:04 12/16/20 08:19 12/16/20 10:20 Glucose (Fingerstick) 271 mg/dL (70-99) 201 mg/dL (70-99) 235 mg/dL (70-99) 220 mg/dL (70-99) Physical Exam HEENT: Neck Supple W Full Motion Chest: Symmetric LUNGS: Other (on BiPAP ) Heart: irregularly irregular (AFIB ) Abdomen: Soft N/T Extremities: No Edema Neurology: confused, other (combative at times ) Assessment Assessment 1. Atrial fibrillation with RVR, new onset in the setting of COVID PNA. rate controlled 2. Acute hypoxic respiratory failure secondary to COVID PNA. requiring BiPAP support 3. Hypertension; better controlled 4. Hyperlipidemia: Statins 5. CAD; details unknown. appears clinically stable 6. Diabetes, II 7. Protein calorie malnutrition 8. Encephalopathy with underlying dementia Recommendations Continue metoprolol IVP q 6 hr for rate control Lovenox for now for stroke prophylaxis Will convert above to oral metoprolol and Eliquis when able to take PO Outpatient echo Consider outpatient CV, once recovered from COVID, if patient remains in AFIB Ongoing lung optimization, treatment of COVID as per pulmonary Justicifation of Admission Dx: Justifications for Admission: Justification of Admission Dx: Yes CHF: Cardiac Arrhythmias JEROMY ZAVALA MD 12/16/20 1403: CARDIO Progress Notes Assessment Assessment Patient seen and examined. Agree with POLYSOMNOGRAPH TECH's assessment and plan. AF rate better controlled Change anticoagulation to Eliquis when able to take p.o. Chech 2D echo to assess LVF once covid recovered Continue current treatment for covid pneumonia UMA CONNELL APRN Dec 16, 2020 12:03 JEROMY ZAVALA MD Dec 16, 2020 14:03
--- NOTE | 2020-12-16 15:25 | PDOC ---
[employer] PROGRESS NOTE Date of Service DOS: DATE: 12/16/20 TIME: 15:25 Chief Complaint Chief Complaint Covid-19 respiratory failure Acute hypoxic respiratory failure with Bilateral infiltrates, ARDS Advanced age acute metabolic encephalopathy sepsis, COPD - emphysema CAD Hyperlipidemia Sleep apnea Poorly controlled diabetes Atrial fibrillation with rapid ventricular response - History of Present Illness History of Present Illness Mr Hamilton is a 70-year-old male w/ PMHx COPD, CAD, HLD, ELLIOT, DM2 (a1c 14) admitted for trouble with balance on 12/05/2020. Was found to be COVID positive, he was transferred to [facility]. 12/12: On 100% nonrebreather. Pleasantly confused. He appears quite ill. Went into rapid afib. Cardiology and pulmonology consulted. 12/13: Currently on 100% nonrebreather. Pleasantly confused. He keeps pulling off his nonrebreather and desats to 60. 12/14: Had to change him over to Vapotherm 40 L 100% FiO2 currently satting 95% (he kept pulling his mask off of the nonrebreather). He still remains quite ill Febrile. Continues to pull off his oxygen. Pulling on his IVs overnight. Took off BIPAP. Responsive to IM zyprexa. Due to multiple blood draws and loss of IV access, requires heparin GTT and cardizem will order PICC Vitals/I&O Vitals/I&O: Vital Signs Date Time Temp Pulse Resp B/P (MAP) Pulse Ox O2 Delivery O2 Flow Rate FiO2 12/16/20 12:07 87 146/88 12/16/20 11:43 94 BiPAP/CPAP 12/16/20 11:00 97.6 19 97.6 12/16/20 08:00 40.0 I & O 12/15/20 12/15/20 12/16/20 15:00 23:00 07:00 Intake Total 0 ml 280 ml 0 ml Output Total 550 ml 1300 ml Balance -550 ml 280 ml -1300 ml Physical Exam Physical Exam: confused, in mittens General: mild distress, Other (Confused) Heart: Other (Tachycardic and irregularly irregular) Lungs: Clear Abdomen: Soft Extremities: No edema Skin: No rashes Labs Labs: Laboratory Tests Test 12/15/20 18:15 12/15/20 20:04 12/16/20 08:19 12/16/20 10:20 Glucose (Fingerstick) 271 mg/dL (70-99) 201 mg/dL (70-99) 235 mg/dL (70-99) 220 mg/dL (70-99) Comment Review of Relevant I have reviewed the following items tina (where applicable) has been applied. Medications: Current Medications Medications (Trade) Dose Ordered Sig/Vandana Route PRN Reason Start Time Stop Time Status Last Admin Dose Admin Enoxaparin Sodium (Lovenox 80mg Syringe) 80 mg Q12H SQ 12/15/20 18:00 12/16/20 06:15 Metoprolol Tartrate (Lopressor Vial) 5 mg Q6H IVP 12/15/20 18:00 12/16/20 12:07 Justifications for Admission Other Justification HEIDI BARKER MD Dec 16, 2020 15:25
[2020-12-16] MEDS: INSULIN GLARGINE SYRINGE. SQ SCH (20:57)
[2020-12-17] MEDS: PIPERACILLIN/TAZOBACTAM 3.375 GM in IV NORMAL SALINE 50ML 50 ML IV SCH ×5 (00:09→23:33)
[2020-12-17] MEDS: METOPROLOL IV PUSH 5 MG/5 ML VIAL. IVP SCH ×5 (00:10→23:33)
[2020-12-17 03:20] VITALS: BP 180/103
[2020-12-17 07:00] VITALS: BP 164/97
[2020-12-17] MEDS: ASPIRIN CHEWABLE 81 MG TABLET. PO SCH (08:00)
[2020-12-17] MEDS: INSULIN LISPRO 300 UNITS/3 ML VIAL. SQ SCH ×3 (08:01→16:34)
[2020-12-17] MEDS: DEXAMETHASONE SOD PHOS 4 MG/ML VIAL IVP SCH (08:06)
[2020-12-17] MEDS: DOXYCYCLINE HYCLATE 100 MG in IV DEXTROSE 5% 100ML 100 ML IV SCH ×2 (08:06→20:17)
[2020-12-17] MEDS: LACTOBACILLUS RHAMNOSUS GG 1 CAPSULE. PO SCH ×2 (08:07→20:17)
[2020-12-17] MEDS: SENNOSIDES/DOCUSATE 8.6/50MG TABLET. PO SCH ×2 (08:07→20:17)
[2020-12-17] MEDS: MULTIVITAMIN with MINERAL TABLET. PO SCH (08:07)
--- NOTE | 2020-12-17 08:13 | PDOC ---
PULMONARY PROGRESS NOTES DATE: 12/17/20 TIME: 08:10 Subjective Patient currently on BiPAP 03/08, FiO2 75%. agitated at times Vitals Vital Signs Date Time Temp Pulse Resp B/P (MAP) Pulse Ox O2 Delivery O2 Flow Rate FiO2 12/17/20 07:39 95 BiPAP/CPAP 12/17/20 06:06 105 180/103 12/17/20 03:20 97.1 20 97.1 12/16/20 23:09 40.0 Comments no distress nc at no accessory muscle use Cardiovascular: S1, S2 Neuro Exam: Alert Extremities: No Edema Skin: No Rashes Labs Laboratory Tests Test 12/15/20 08:20 12/15/20 11:28 12/15/20 18:15 12/15/20 20:04 O2 Saturation 86 % (92-99) Arterial Blood pH 7.48 (7.35-7.45) Arterial Blood pCO2 at Patient Temp 33 mmHg (35-46) Arterial Blood pO2 at Patient Temp 52 mmHg (65-108) Arterial Blood HCO3 24 mmol/L (21-28) Arterial Blood Base Excess 1 mmol/L (-3-3) FiO2 55% bipap Glucose (Fingerstick) 313 mg/dL (70-99) 271 mg/dL (70-99) 201 mg/dL (70-99) Test 12/16/20 08:19 12/16/20 10:20 12/16/20 16:21 12/16/20 20:59 Glucose (Fingerstick) 235 mg/dL (70-99) 220 mg/dL (70-99) 231 mg/dL (70-99) 294 mg/dL (70-99) Laboratory Tests Test 12/16/20 08:19 12/16/20 10:20 12/16/20 16:21 12/16/20 20:59 Glucose (Fingerstick) 235 mg/dL (70-99) 220 mg/dL (70-99) 231 mg/dL (70-99) 294 mg/dL (70-99) Medications Active Scripts Medications Dose Route/Sig Max Daily Dose Days Date Category Gabapentin 600 Mg Tablet 600 Mg PO BID 12/12/20 Reported Aspirin 81 Mg Tab.chew 1 Tab PO DAILY 12/12/20 Reported Pravastatin Sodium 20 Mg Tablet 1 Tab PO QHS 12/12/20 Reported Escitalopram Oxalate 10 Mg Tablet 1 Tab PO DAILY 12/12/20 Reported Cetirizine Hcl 10 Mg Tablet 1 Tab PO DAILY 12/12/20 Reported Lisinopril 20 Mg Tablet 1 Tab PO DAILY 12/12/20 Reported Bupropion Xl (Bupropion Hcl) 150 Mg Tab.er.24h 1 Tab PO BID 12/12/20 Reported Nexium Capsule (Esomeprazole Magnesium) 40 Mg Capsule.dr 1 Cap PO DAILY 12/12/20 Reported Lantus Solostar (Insulin Glargine,Hum.rec.anlog) 100 Unit/1 Ml Insuln.pen 30 Unit SQ QHS 12/12/20 Reported Impression . IMPRESSION: 1. Acute hypoxemic respiratory failure secondary to COVID-19 viral pneumonia. 2. COVID-19 viral pneumonia. 3. Type 2 diabetes. 4. Severe protein malnutrition, present upon admission. 5. Acute toxic encephalopathy, present upon admission 6. New onset A. fib 7. Coronary artery disease Plan . Updated 12/17 cont bipap setting reviewed titrate fio2 to keep sat 90% elevated hob change meds to iv no safe to take po when on bipap for long period of time Continue current support Remdesivir, dexamethasone Empiric antibiotics Patient is full code Follow cardiology input discussed w rn Updated 12/15 Continue Vapotherm Empiric antibiotics Remdesivir dexamethasone Updated 12/14 Continue support with remdesivir dexamethasone Empiric antibiotics Oxygen supplementation Noted patient is a full code JEAN VELEZ MD Dec 17, 2020 08:13
[2020-12-17 10:38] VITALS: BP 154/91
--- NOTE | 2020-12-17 11:47 | PDOC ---
[employer] PROGRESS NOTE Date of Service DOS: DATE: 12/17/20 TIME: 11:46 Chief Complaint Chief Complaint acute Covid-19 respiratory failure Acute hypoxic respiratory failure with Bilateral infiltrates, ARDS acute metabolic encephalopathy sepsis, malnutrition COPD - emphysema CAD Hyperlipidemia Sleep apnea Poorly controlled diabetes Atrial fibrillation with rapid ventricular response - History of Present Illness History of Present Illness 12/07, start CLINIMIX IV nutrition PRN IV ativan BP good on PRN increase Lantus insulin dose on 65% bipap, discussed with RT, try to wean to vapotherm Mr Hamilton is a 70-year-old male w/ PMHx COPD, CAD, HLD, ELLIOT, DM2 (a1c 14) admitted for trouble with balance on 12/05/2020. Was found to be COVID positive, he was transferred to [facility]. 12/12: On 100% nonrebreather. Pleasantly confused. He appears quite ill. Went into rapid afib. Cardiology and pulmonology consulted. 12/13: Currently on 100% nonrebreather. Pleasantly confused. He keeps pulling off his nonrebreather and desats to 60. 12/14: Had to change him over to Vapotherm 40 L 100% FiO2 currently satting 95% (he kept pulling his mask off of the nonrebreather). He still remains quite ill Febrile. Continues to pull off his oxygen. Pulling on his IVs overnight. Took off BIPAP. Responsive to IM zyprexa. Due to multiple blood draws and loss of IV access, requires heparin GTT and cardizem will order PICC Vitals/I&O Vitals/I&O: Vital Signs Date Time Temp Pulse Resp B/P (MAP) Pulse Ox O2 Delivery O2 Flow Rate FiO2 12/17/20 11:33 106 154/91 12/17/20 11:29 97 BiPAP/CPAP 12/17/20 10:38 95.8 18 95.8 12/17/20 08:00 40.0 I & O 12/16/20 12/16/20 12/17/20 14:59 22:59 06:59 Intake Total 0 ml 0 ml Output Total 1300 ml 350 ml Balance -1300 ml 0 ml -350 ml Physical Exam Physical Exam: confused, in mittens General: mild distress, Other (Confused) Heart: Other (Tachycardic and irregularly irregular) Abdomen: Soft Extremities: No edema Skin: No rashes Labs Labs: Laboratory Tests Test 12/16/20 16:21 12/16/20 20:59 12/17/20 07:48 Glucose (Fingerstick) 231 mg/dL (70-99) 294 mg/dL (70-99) 286 mg/dL (70-99) Comment Review of Relevant I have reviewed the following items tina (where applicable) has been applied. Justifications for Admission Other Justification HEIDI BARKER MD Dec 17, 2020 11:47
[2020-12-17] MEDS: AA 4.25 %/CALCIUM/LYTES/D5W 1,000 ML IV SCH ×2 (12:51→23:34)
[2020-12-17 15:00] VITALS: BP 130/73
[2020-12-17 19:55] VITALS: BP 137/80
[2020-12-17] MEDS ORDERED: INSULIN GLARGINE SYRINGE. SQ SCH (21:00)
[2020-12-17 22:56] VITALS: BP 151/93
[2020-12-18] VITALS (22 sets, daily range): BP systolic 80–228; BP diastolic 63–139
--- NOTE | 2020-12-18 05:25 | NUR ---
RN RECEIVED AT SHIFT REPORT THAT PATIENT WAS COVID POSITIVE AND ON 40LPM VAPOTHERM AT 100% FIO2. AT APPROX 2100, PT SPO2 NOTED TO BE 85-87%. AFTER CONFERRING WITH RT, PT WAS PLACED ON NRB IN ADDITION TO VAPOTHERM AND SPO2 VINCE TO 91%. AT APPROX 0415, PT SPO2 NOTED TO BE 67%. RT PAGED AND RN AND RAIL GANG SUPERVISOR CHECKED ON PT. ONE SIDE OF VAPOTHERM WAS NOT IN PT'S NARES AND RETURNED TO PROPER POSITION. SPO2 VINCE TO 80%. RT INFORMED RN THAT PT HAD NOW BEEN PLACED ON VAPOTHERM AND BIPAP AND SPO2 WAS 85%. DR. VELEZ PAGED AND UPDATED ON PT'S STATUS. RN RECEIVED ORDER TO TRANSFER PT TO ICU AND INTUBATE. RN CALLED NURSING CHALK MOLDING MACHINE OPERATOR FOR BED PLACEMENT, CALLED ICU TO GIVE REPORT, TRANSFERRED PT TO ICU WITH RT AND SECOND RN. DURING TRANSFER, PT WAS ON 15L NRB AND 15L HIGH FLOW NC. SPO2 MAINTAINED AT 80% DURING TRANSFER TO ICU, HR AFIB WITH TACHYCARDIA. CARE TRANSFERRED.
[2020-12-18] MEDS: METOPROLOL IV PUSH 5 MG/5 ML VIAL. IVP SCH ×3 (06:00→17:34)
[2020-12-18] MEDS ORDERED: NALOXONE 0.4 MG/ML VIAL. IV PRN (06:00)
[2020-12-18] MEDS ORDERED: PROPOFOL 100 ML IV PRN (06:00)
--- NOTE | 2020-12-18 06:07 | PDOC ---
Provider Note Date of Service: DATE: 12/18/20 TIME: 05:57 Provider Note Anesthesia Note: Requested for intubation of Covid positive pt in respiratory failure, confused and combative,O2 sats in 60's..Labs checked, sedated with 12 mg Etomidate, 100mg Sux. Intubated without diff 7.5 OET with #3 Glidescope. Positive color change on EtCO2 indicator,BSBE, Tube secured at 22 cm at the teeth. VS remain stable, Pt O2 sats increased into the 80S. Place on the ventilator. Chest Xray to be performed. Justifications for Admission Other Justification PERFECTO WADE CRNA Dec 18, 2020 06:07
[2020-12-18 06:34] LABS: BASE EXCESS ABG 2 mmol/L (-3-3); HCO3 ABG 25 mmol/L (21-28); PCO2 ABG 34 mmHg (35-46); SAT O2 ABG 75 % (92-99)
[2020-12-18 06:35] LABS: PO2 ABG < 42 mmHg (65-108)
[2020-12-18 06:36] LABS: FIO2 ABG 15LNC 15LNRB
[2020-12-18] MEDS: PIPERACILLIN/TAZOBACTAM 3.375 GM in IV NORMAL SALINE 50ML 50 ML IV SCH ×3 (06:44→18:00)
[2020-12-18] MEDS ORDERED: PHENYLEPHRINE INJ 50 MG in IV NORMAL SALINE 250ML 250 ML IV PRN (06:45)
--- NOTE | 2020-12-18 07:00 | PDOC ---
PULMONARY PROGRESS NOTES DATE: 12/18/20 TIME: 06:54 Subjective was called at 0430 that pt is dasating on bipap vapotherm i transferred pt to icu full code intubated in afib w rvr cardiology on case hypotensive on peep 12 fio2 100% cxr b lat infilt no ptx ett ok Vitals Vital Signs Date Time Temp Pulse Resp B/P (MAP) Pulse Ox O2 Delivery O2 Flow Rate FiO2 12/18/20 06:24 81 Ventilator 12/18/20 04:00 40.0 12/18/20 03:50 98.0 114 20 173/98 (123) 98.0 Comments on vent sedated nc at irreg tachy no accessory muscle use no paradaoxical abd motion no rash Cardiovascular: S1, S2 Extremities: No Edema Skin: No Rashes Labs Laboratory Tests Test 12/16/20 08:19 12/16/20 10:20 12/16/20 16:21 12/16/20 20:59 Glucose (Fingerstick) 235 mg/dL (70-99) 220 mg/dL (70-99) 231 mg/dL (70-99) 294 mg/dL (70-99) Test 12/17/20 07:48 12/17/20 11:45 12/17/20 16:14 12/17/20 20:44 Glucose (Fingerstick) 286 mg/dL (70-99) 237 mg/dL (70-99) 278 mg/dL (70-99) 415 mg/dL (70-99) Test 12/18/20 05:20 O2 Saturation 75 % (92-99) Arterial Blood pH 7.49 (7.35-7.45) Arterial Blood pCO2 at Patient Temp 34 mmHg (35-46) Arterial Blood pO2 at Patient Temp < 42 mmHg (65-108) Arterial Blood HCO3 25 mmol/L (21-28) Arterial Blood Base Excess 2 mmol/L (-3-3) FiO2 15lnc 15lnrb Laboratory Tests Test 12/17/20 07:48 12/17/20 11:45 12/17/20 16:14 12/17/20 20:44 Glucose (Fingerstick) 286 mg/dL (70-99) 237 mg/dL (70-99) 278 mg/dL (70-99) 415 mg/dL (70-99) Test 12/18/20 05:20 O2 Saturation 75 % (92-99) Arterial Blood pH 7.49 (7.35-7.45) Arterial Blood pCO2 at Patient Temp 34 mmHg (35-46) Arterial Blood pO2 at Patient Temp < 42 mmHg (65-108) Arterial Blood HCO3 25 mmol/L (21-28) Arterial Blood Base Excess 2 mmol/L (-3-3) FiO2 15lnc 15lnrb Medications Active Scripts Medications Dose Route/Sig Max Daily Dose Days Date Category Gabapentin 600 Mg Tablet 600 Mg PO BID 12/12/20 Reported Aspirin 81 Mg Tab.chew 1 Tab PO DAILY 12/12/20 Reported Pravastatin Sodium 20 Mg Tablet 1 Tab PO QHS 12/12/20 Reported Escitalopram Oxalate 10 Mg Tablet 1 Tab PO DAILY 12/12/20 Reported Cetirizine Hcl 10 Mg Tablet 1 Tab PO DAILY 12/12/20 Reported Lisinopril 20 Mg Tablet 1 Tab PO DAILY 12/12/20 Reported Bupropion Xl (Bupropion Hcl) 150 Mg Tab.er.24h 1 Tab PO BID 12/12/20 Reported Nexium Capsule (Esomeprazole Magnesium) 40 Mg Capsule.dr 1 Cap PO DAILY 12/12/20 Reported Lantus Solostar (Insulin Glargine,Hum.rec.anlog) 100 Unit/1 Ml Insuln.pen 30 Unit SQ QHS 12/12/20 Reported Comments cxr reviewed b lat infilt no ptx ett ok Impression . IMPRESSION: 1. Acute hypoxemic respiratory failure secondary to COVID-19 viral pneumonia. worsening intubated 12/18 2. COVID-19 viral pneumonia. 3. Type 2 diabetes. 4. Severe protein malnutrition, present upon admission. 5. Acute toxic encephalopathy, present upon admission 6. A. fib w rvr 7. shock septic hypotensive 8. abnl cxr 9. Coronary artery disease Plan . Updated 12/18 cont vent setting peep 12 fio2 100% cxr b lat infilt no ptx will do abg change setting per abg art line hypotensive start nicole tachycardic avoid levo afib w rvr per cardiology elevated hob Remdesivir, dexamethasone Empiric antibiotics Patient is full code Follow cardiology input discussed w rn rt critically ill cct 30 min no overlap Updated 12/17 cont bipap setting reviewed titrate fio2 to keep sat 90% elevated hob change meds to iv no safe to take po when on bipap for long period of time Continue current support Remdesivir, dexamethasone Empiric antibiotics Patient is full code Follow cardiology input discussed w rn Updated 12/15 Continue Vapotherm Empiric antibiotics Remdesivir dexamethasone Updated 12/14 Continue support with remdesivir dexamethasone Empiric antibiotics Oxygen supplementation Noted patient is a full code JEAN VELEZ MD Dec 18, 2020 07:00
--- NOTE | 2020-12-18 07:08 | RAD ---
Exam Date: 12/18/2020 6:33 AM XR ABDOMEN 1V, XR CHEST 1V Indication: Reason: OGT placement / Spl. Instructions: / History: . COMPARISON: December 15, 2020 Impression: Endotracheal tube terminates approximately 5.7 cm above the carmina. Nasogastric tube extends below t he diaphragm and terminates in the gastric fundus. Cardiac silhouette is unchanged. Diffuse bilateral infiltrates are unchanged. Coarse reticular tina ings bilaterally are unchanged and suggest underlying fibrosis. No appreciable pleural effusion or p neumothorax. Visualized upper abdomen demonstrates a nondilated, nonobstructed bowel gas pattern. Electronically signed by: Jakub Melendez MD (12/18/2020 7:06 AM) [id number]
--- NOTE | 2020-12-18 07:08 | PDOC ---
[employer] PROGRESS NOTE Date of Service DOS: DATE: 12/18/20 TIME: 06:58 Chief Complaint Chief Complaint acute Covid-19 respiratory failure Acute hypoxic respiratory failure with Bilateral infiltrates, ARDS acute metabolic encephalopathy sepsis, malnutrition COPD - emphysema CAD Hyperlipidemia Sleep apnea Poorly controlled diabetes Atrial fibrillation with rapid ventricular response - History of Present Illness History of Present Illness Mr Hamilton is a 70-year-old male w/ PMHx COPD, CAD, HLD, ELLIOT, DM2 (a1c 14) admitted for trouble with balance on 12/05/2020. Was found to be COVID positive, he was transferred to [facility]. 12/12: On 100% nonrebreather. Pleasantly confused. He appears quite ill. Went into rapid afib. Cardiology and pulmonology consulted. 12/13: Currently on 100% nonrebreather. Pleasantly confused. He keeps pulling off his nonrebreather and desats to 60. 12/14: Had to change him over to Vapotherm 40 L 100% FiO2 currently satting 95% (he kept pulling his mask off of the nonrebreather). He still remains quite ill 12/15: Febrile. Continues to pull off his oxygen. Pulling on his IVs overnight. Took off BIPAP. Responsive to IM zyprexa. Due to multiple blood draws and loss of IV access, requires heparin GTT and cardizem will order PICC 12/17: 12/07, start CLINIMIX IV nutrition PRN IV ativan BP good on PRN increase Lantus insulin dose on 65% bipap, discussed with RT, try to wean to vapotherm 12/18: Due to worsening respiratory distress patient was moved to ICU and intubated overnight. Chest x-ray, KUB pending. Afebrile. Still with significant hyperglycemia likely secondary to Clinimix, will adjust insulin. S/P remdesivir; continue Decadron to complete 10-day course. Continue empiric antibiotics and supportive care. 30 minutes critical care time spent reviewing charts, reviewing labs, reviewing imaging, discussion with Dr. Mason, and discussion with RN. Vitals/I&O Vitals/I&O: Vital Signs Date Time Temp Pulse Resp B/P (MAP) Pulse Ox O2 Delivery O2 Flow Rate FiO2 12/18/20 06:24 81 Ventilator 12/18/20 04:00 40.0 12/18/20 03:50 98.0 114 20 173/98 (123) 98.0 I & O 12/17/20 12/17/20 12/18/20 15:00 23:00 07:00 Intake Total 0 ml 600 ml 0 ml Output Total 1000 ml 450 ml Balance 0 ml -400 ml -450 ml Physical Exam Physical Exam: confused, in mittens General: mild distress, Other (Confused) Heart: Other (Tachycardic and irregularly irregular) Lungs: Other (Intubated mechanically ventilated) Abdomen: Soft Extremities: No clubbing, No edema Skin: No rashes Labs Labs: Laboratory Tests Test 12/17/20 07:48 12/17/20 11:45 12/17/20 16:14 12/17/20 20:44 Glucose (Fingerstick) 286 mg/dL (70-99) 237 mg/dL (70-99) 278 mg/dL (70-99) 415 mg/dL (70-99) Test 12/18/20 05:20 O2 Saturation 75 % (92-99) Arterial Blood pH 7.49 (7.35-7.45) Arterial Blood pCO2 at Patient Temp 34 mmHg (35-46) Arterial Blood pO2 at Patient Temp < 42 mmHg (65-108) Arterial Blood HCO3 25 mmol/L (21-28) Arterial Blood Base Excess 2 mmol/L (-3-3) FiO2 15lnc 15lnrb Comment Review of Relevant I have reviewed the following items tina (where applicable) has been applied. Medications: Current Medications Medications (Trade) Dose Ordered Sig/Vandana Route PRN Reason Start Time Stop Time Status Last Admin Dose Admin Amino Acids/ Electrolytes/ Dextrose 1,000 ml @ 80 mls/hr [id number] IV 12/17/20 11:45 12/17/20 23:34 Insulin Glargine (Lantus Syringe) 22 unit QHS SQ 12/17/20 21:00 12/17/20 20:18 Justifications for Admission Other Justification RINKU ESTES MD Dec 18, 2020 07:08
[2020-12-18] MEDS ORDERED: VECURONIUM BOLUS 10 MG VIAL. IV ONE (07:24)
[2020-12-18] MEDS ORDERED: VECURONIUM BOLUS 10 MG VIAL. IV PRN (07:30)
[2020-12-18] MEDS: NOREPINEPHRINE VIAL 8 MG in IV DEXTROSE 5% 250 ML IV PRN ×2 (07:37→15:29)
[2020-12-18] MEDS: IV NORMAL SALINE 1000ML BAG 1,000 ML IV SCH (07:39)
[2020-12-18 07:41] LABS: BASE EXCESS ABG -2 mmol/L (-3-3); HCO3 ABG 25 mmol/L (21-28); PCO2 ABG 55 mmHg (35-46); PO2 ABG 63 mmHg (65-108); SAT O2 ABG 87 % (92-99)
--- NOTE | 2020-12-18 07:44 | NUR ---
Patient arrived to ICU via bed accompanied by RN at 0510. Patient confused and trying to get out of bed, saying he can't breathe and wanted to get up. ABG drawn on patient, orders from Dr. Mason to intubate. GRID TRIMMER notified, patient intubated at 0550--7.5 22 at the teeth. OG tube placed, arthur replaced. CXR and KUB obtained--verified placement of ETT and OG. Patient started on Propofol, BP declined quickly--pressors started and sedation changed to Versed/Fentanyl. Patient in Afib RVR but unable to give scheduled metoprolol R/T low BP. Patient's daughter, Dinh, notified of patient's condition and transfer to the ICU. Code status remains full code at this time.
[2020-12-18] MEDS ORDERED: ETOMIDATE 20 MG/10 ML VIAL. IV ONE (07:45)
[2020-12-18] MEDS ORDERED: SUCCINYLCHOLINE 200 MG/10 ML VIAL. IV ONE (07:45)
[2020-12-18] MEDS: INSULIN LISPRO 300 UNITS/3 ML VIAL. SQ SCH ×3 (08:00→17:33)
[2020-12-18] MEDS: ASPIRIN CHEWABLE 81 MG TABLET. PO SCH (08:00)
[2020-12-18 08:15] LABS: FIO2 ABG AC 24 500 100% +12
[2020-12-18] MEDS: DEXMEDETOMIDINE 400 MCG in IV NORMAL SALINE 100ML 96 ML IV PRN ×2 (08:38→17:35)
[2020-12-18] MEDS: SENNOSIDES/DOCUSATE 8.6/50MG TABLET. PO SCH ×2 (09:00→21:25)
[2020-12-18] MEDS: DOXYCYCLINE HYCLATE 100 MG in IV DEXTROSE 5% 100ML 100 ML IV SCH ×2 (10:47→21:40)
[2020-12-18 10:49] LABS: BASO # 0.1 x10^3/uL (0.0-0.2); BASO % 0 % (0-3); EOS % 0 % (0-3); HEMATOCRIT 43.1 % (39.0-53.0); HEMOGLOBIN 13.7 g/dL (13.0-17.5); LYMPH # 0.5 x10^3/uL (1.0-4.8); LYMPH % 2 % (24-48); MEAN CORPUSCULAR HEMOGLOBIN 29 pg (25-35); MEAN CORPUSCULAR HGB CONC 32 g/dL (31-37); MEAN CORPUSCULAR VOLUME 91 fL (79-100); MONO # 0.6 x10^3/uL (0.0-1.1); MONO % 2 % (0-9); NEUT # 23.6 x10^3/uL (1.8-7.7); NEUT % 95 % (31-73); PLATELET COUNT 567 x10^3/uL (140-400); RED BLOOD COUNT 4.73 x10^6/uL (4.30-5.70); RED CELL DISTRIBUTION WIDTH 14.6 % (11.5-14.5); WHITE BLOOD COUNT 24.8 x10^3/uL (4.0-11.0)
[2020-12-18] MEDS: DEXAMETHASONE SOD PHOS 4 MG/ML VIAL IVP SCH (10:49)
[2020-12-18] MEDS: LACTOBACILLUS RHAMNOSUS GG 1 CAPSULE. PO SCH ×2 (10:51→21:25)
[2020-12-18] MEDS: MULTIVITAMINS,THERAPEUTIC 5 ML ORAL LIQUID. PEG SCH (10:51)
[2020-12-18 11:15] LABS: ALBUMIN 1.7 g/dL (3.4-5.0); ALBUMIN/GLOBULIN RATIO 0.4 (1.0-1.7); CALCIUM 8.3 mg/dL (8.5-10.1); CREATININE 1.5 mg/dL (0.7-1.3); POTASSIUM 4.5 mmol/L (3.5-5.1); TOTAL BILIRUBIN 0.5 mg/dL (0.2-1.0); TOTAL PROTEIN 6.3 g/dL (6.4-8.2)
[2020-12-18 13:37] LABS: % BANDS 4 % (0-9); % LYMPHS 3 % (24-48); % MONOS 1 % (0-10); % OTHERS 1 % (0-0); % SEGS 91 % (35-66)
[2020-12-18 13:38] LABS: PLATELET CLUMP PRESENT; PLT ESTIMATE INCREASED (ADEQUATE)
[2020-12-18] MEDS: AA 4.25 %/CALCIUM/LYTES/D5W 1,000 ML IV SCH (14:42)
[2020-12-18] MEDS ORDERED: PANTOPRAZOLE IV PUSH 40 MG VIAL. IVP ONE (15:30)
--- NOTE | 2020-12-18 16:00 | PDOC ---
PROGRESS NOTES Date of Service DATE: 12/18/20 TIME: 15:57 Subjective Subjective Patient seen and evaluated. He is now intubated and on a ventilator. Objective Objective Vital Signs Date Time Temp Pulse Resp B/P (MAP) Pulse Ox O2 Delivery O2 Flow Rate FiO2 12/18/20 15:26 98.9 90 30 153/82 99 Ventilator 98.9 12/18/20 05:15 15.0 Intake and Output 12/18/20 07:00 Intake Total 600 ml Output Total 1450 ml Balance -850 ml Intake Oral 100 ml Blood Product IV Normal Saline Flush 500 ml Output Urine Total 1450 ml Physical Exam Physical Exam Visual examination as per Covid guidelines. Assessment Assessment Atrial fibrillation with RVR, new onset earlier this admission in the setting of Covid pneumonia. Rate increased last evening before intubation. Rate is now under better control. Continue present treatment. Acute hypoxic respiratory failure secondary to COVID PNA. Intubated earlier this morning. Now in the ICU. Followed by pulmonary. Hypertension; controlled Hyperlipidemia: Statins CAD; details unknown. Echo as per Covid guidelines. Diabetes, II Encephalopathy with underlying dementia Comment Review of Relevant I have reviewed the following items tina (where applicable) has been applied. Labs Laboratory Tests Test 12/16/20 16:21 12/16/20 20:59 12/17/20 07:48 12/17/20 11:45 Glucose (Fingerstick) 231 mg/dL (70-99) 294 mg/dL (70-99) 286 mg/dL (70-99) 237 mg/dL (70-99) Test 12/17/20 16:14 12/17/20 20:44 12/18/20 05:20 12/18/20 07:30 Glucose (Fingerstick) 278 mg/dL (70-99) 415 mg/dL (70-99) O2 Saturation 75 % (92-99) 87 % (92-99) Arterial Blood pH 7.49 (7.35-7.45) 7.28 (7.35-7.45) Arterial Blood pCO2 at Patient Temp 34 mmHg (35-46) 55 mmHg (35-46) Arterial Blood pO2 at Patient Temp < 42 mmHg (65-108) 63 mmHg (65-108) Arterial Blood HCO3 25 mmol/L (21-28) 25 mmol/L (21-28) Arterial Blood Base Excess 2 mmol/L (-3-3) -2 mmol/L (-3-3) FiO2 15lnc 15lnrb Ac 24 500 100% +12 Test 12/18/20 10:40 White Blood Count 24.8 x10^3/uL (4.0-11.0) Red Blood Count 4.73 x10^6/uL (4.30-5.70) Hemoglobin 13.7 g/dL (13.0-17.5) Hematocrit 43.1 % (39.0-53.0) Mean Corpuscular Volume 91 fL (79-100) Mean Corpuscular Hemoglobin 29 pg (25-35) Mean Corpuscular Hemoglobin Concent 32 g/dL (31-37) Red Cell Distribution Width 14.6 % (11.5-14.5) Platelet Count 567 x10^3/uL (140-400) Neutrophils (%) (Auto) 95 % (31-73) Lymphocytes (%) (Auto) 2 % (24-48) Monocytes (%) (Auto) 2 % (0-9) Eosinophils (%) (Auto) 0 % (0-3) Basophils (%) (Auto) 0 % (0-3) Neutrophils # (Auto) 23.6 x10^3/uL (1.8-7.7) Lymphocytes # (Auto) 0.5 x10^3/uL (1.0-4.8) Monocytes # (Auto) 0.6 x10^3/uL (0.0-1.1) Eosinophils # (Auto) 0.0 x10^3/uL (0.0-0.7) Basophils # (Auto) 0.1 x10^3/uL (0.0-0.2) Segmented Neutrophils % 91 % (35-66) Band Neutrophils % 4 % (0-9) Lymphocytes % 3 % (24-48) Monocytes % 1 % (0-10) Other Cells % 1 % (0-0) Platelet Estimate Increased (ADEQUATE) Platelet Clumps, EDTA Present Sodium Level 146 mmol/L (136-145) Potassium Level 4.5 mmol/L (3.5-5.1) Chloride Level 109 mmol/L (98-107) Carbon Dioxide Level 28 mmol/L (21-32) Anion Gap 9 (6-14) Blood Urea Nitrogen 51 mg/dL (8-26) Creatinine 1.5 mg/dL (0.7-1.3) Estimated GFR (Cockcroft-Gault) 46.0 BUN/Creatinine Ratio 34 (6-20) Glucose Level 363 mg/dL (70-99) Calcium Level 8.3 mg/dL (8.5-10.1) Total Bilirubin 0.5 mg/dL (0.2-1.0) Aspartate Amino Transf (AST/SGOT) 13 U/L (15-37) Alanine Aminotransferase (ALT/SGPT) 17 U/L (16-63) Alkaline Phosphatase 276 U/L (46-116) Total Protein 6.3 g/dL (6.4-8.2) Albumin 1.7 g/dL (3.4-5.0) Albumin/Globulin Ratio 0.4 (1.0-1.7) Laboratory Tests Test 12/17/20 16:14 12/17/20 20:44 12/18/20 05:20 12/18/20 07:30 Glucose (Fingerstick) 278 mg/dL (70-99) 415 mg/dL (70-99) O2 Saturation 75 % (92-99) 87 % (92-99) Arterial Blood pH 7.49 (7.35-7.45) 7.28 (7.35-7.45) Arterial Blood pCO2 at Patient Temp 34 mmHg (35-46) 55 mmHg (35-46) Arterial Blood pO2 at Patient Temp < 42 mmHg (65-108) 63 mmHg (65-108) Arterial Blood HCO3 25 mmol/L (21-28) 25 mmol/L (21-28) Arterial Blood Base Excess 2 mmol/L (-3-3) -2 mmol/L (-3-3) FiO2 15lnc 15lnrb Ac 24 500 100% +12 Test 12/18/20 10:40 White Blood Count 24.8 x10^3/uL (4.0-11.0) Red Blood Count 4.73 x10^6/uL (4.30-5.70) Hemoglobin 13.7 g/dL (13.0-17.5) Hematocrit 43.1 % (39.0-53.0) Mean Corpuscular Volume 91 fL (79-100) Mean Corpuscular Hemoglobin 29 pg (25-35) Mean Corpuscular Hemoglobin Concent 32 g/dL (31-37) Red Cell Distribution Width 14.6 % (11.5-14.5) Platelet Count 567 x10^3/uL (140-400) Neutrophils (%) (Auto) 95 % (31-73) Lymphocytes (%) (Auto) 2 % (24-48) Monocytes (%) (Auto) 2 % (0-9) Eosinophils (%) (Auto) 0 % (0-3) Basophils (%) (Auto) 0 % (0-3) Neutrophils # (Auto) 23.6 x10^3/uL (1.8-7.7) Lymphocytes # (Auto) 0.5 x10^3/uL (1.0-4.8) Monocytes # (Auto) 0.6 x10^3/uL (0.0-1.1) Eosinophils # (Auto) 0.0 x10^3/uL (0.0-0.7) Basophils # (Auto) 0.1 x10^3/uL (0.0-0.2) Segmented Neutrophils % 91 % (35-66) Band Neutrophils % 4 % (0-9) Lymphocytes % 3 % (24-48) Monocytes % 1 % (0-10) Other Cells % 1 % (0-0) Platelet Estimate Increased (ADEQUATE) Platelet Clumps, EDTA Present Sodium Level 146 mmol/L (136-145) Potassium Level 4.5 mmol/L (3.5-5.1) Chloride Level 109 mmol/L (98-107) Carbon Dioxide Level 28 mmol/L (21-32) Anion Gap 9 (6-14) Blood Urea Nitrogen 51 mg/dL (8-26) Creatinine 1.5 mg/dL (0.7-1.3) Estimated GFR (Cockcroft-Gault) 46.0 BUN/Creatinine Ratio 34 (6-20) Glucose Level 363 mg/dL (70-99) Calcium Level 8.3 mg/dL (8.5-10.1) Total Bilirubin 0.5 mg/dL (0.2-1.0) Aspartate Amino Transf (AST/SGOT) 13 U/L (15-37) Alanine Aminotransferase (ALT/SGPT) 17 U/L (16-63) Alkaline Phosphatase 276 U/L (46-116) Total Protein 6.3 g/dL (6.4-8.2) Albumin 1.7 g/dL (3.4-5.0) Albumin/Globulin Ratio 0.4 (1.0-1.7) Medications Current Medications Ondansetron HCl (Zofran) 4 mg PRN Q6HRS PRN IVP NAUSEA/VOMITING; Start 12/11/20 at 20:45 Calcium Carbonate/ Glycine (Tums) 500 mg PRN Q3HRS PRN PO UPSET STOMACH; Start 12/11/20 at 20:45 Info (Non-Icu Electrolyte Protocol) 1 ea PRN DAILY PRN MC SEE COMMENTS; Start 12/11/20 at 20:45 Oxycodone HCl (Roxicodone) 5 mg PRN Q3HRS PRN PO BREAKTHROUGH PAIN Last administered on 12/15/20at 08:31; Start 12/11/20 at 20:45 Oxycodone/ Acetaminophen (Percocet 5/325) 1 tab PRN Q4HRS PRN PO MILD PAIN, 1ST CHOICE; Start 12/11/20 at 20:45 Oxycodone/ Acetaminophen (Percocet 5/325) 2 tab PRN Q4HRS PRN PO MODERATE PAIN, SEVERE PAIN; Start 12/11/20 at 20:45 Acetaminophen (Tylenol) 650 mg PRN Q6HRS PRN PO Headaches, Temp > 101.5F; Start 12/11/20 at 20:45 Senna/Docusate Sodium (Senna Plus) 1 tab BID PO Last administered on 12/17/20at 20:17; Start 12/11/20 at 21:00 Heparin Sodium (Porcine) (Heparin Sodium) 5,000 unit Q12HR SQ Last administered on 12/13/20at 10:15; Start 12/11/20 at 21:00; Stop 12/13/20 at 15:05; Status DC Insulin Glargine (Lantus Syringe) 15 unit QHS SQ Last administered on 12/16/20at 20:57; Start 12/11/20 at 21:00; Stop 12/17/20 at 11:46; Status DC Insulin Human Lispro (HumaLOG) 0-7 UNITS TIDWMEALS SQ Last administered on 12/17/20at 16:34; Start 12/12/20 at 08:00 Dextrose (Dextrose 50%-Water Syringe) 12.5 gm PRN Q15MIN PRN IV SEE COMMENTS; Start 12/11/20 at 20:45 Remdesivir 100 mg/ Sodium Chloride 230 ml @ 460 mls/hr Q24H IV Last administered on 12/15/20at 17:33; Start 12/12/20 at 18:00; Stop 12/15/20 at 18:29; Status DC Piperacillin Sod/ Tazobactam Sod (Zosyn Per Pharmacy) 1 each PRN DAILY PRN MC SEE COMMENTS; Start 12/11/20 at 21:00 Piperacillin Sod/ Tazobactam Sod 2.25 gm/Sodium Chloride 50 ml @ 100 mls/hr Q6HRS IV Last administered on 12/13/20at 05:49; Start 12/12/20 at 00:00; Stop 12/13/20 at 09:02; Status DC Dexamethasone Sodium Phosphate (Decadron) 6 mg DAILY IVP Last administered on 12/18/20at 10:49; Start 12/12/20 at 12:00 Aspirin (Aspirin Chewable) 81 mg [id number] PO Last administered on 12/14/20at 08:21; Start 12/12/20 at 12:30 Guaifenesin/ Codeine Phosphate (Robitussin Ac) 5 ml PRN Q6HRS PRN PO COUGH; Start 12/12/20 at 12:15 Multivitamins (Thera M Plus) 1 tab DAILY PO Last administered on 12/14/20at 08:21; Start 12/12/20 at 12:30; Stop 12/18/20 at 09:34; Status DC Doxycycline Hyclate 100 mg/ Dextrose 100 ml @ 50 mls/hr Q12HR IV Last administered on 12/18/20at 10:47; Start 12/12/20 at 13:00 Enoxaparin Sodium (Lovenox 40mg Syringe) 40 mg Q24H SQ ; Start 12/12/20 at 12:15; Status UNV Lactobacillus Rhamnosus (Culturelle) 1 cap BID PO Last administered on 12/18/20at 10:51; Start 12/13/20 at 21:00 Piperacillin Sod/ Tazobactam Sod 3.375 gm/Sodium Chloride 50 ml @ 100 mls/hr Q6HRS IV Last administered on 12/18/20at 12:00; Start 12/13/20 at 12:00 Digoxin (Lanoxin) 500 mcg 1X ONCE IV Last administered on 12/13/20at 14:30; Start 12/13/20 at 14:00; Stop 12/13/20 at 14:01; Status DC Sterile Water (WATER for RESP) 2,000 ml CONT PRN INH VIA VAPOTHERM DEVICE Last administered on 12/13/20at 15:08; Start 12/13/20 at 15:15 Heparin Sodium/ Dextrose 250 ml @ 10.104 mls/ hr CONT PRN IV PER PROTOCOL Last administered on 12/15/20at 02:52; Start 12/13/20 at 15:15; Stop 12/15/20 at 15:19; Status DC Heparin Sodium (Porcine) (Heparin Sodium) 2,100 unit PRN Q6HRS PRN IV FOR UFH LEVEL LESS THAN 0.2 Last administered on 12/15/20at 13:06; Start 12/13/20 at 15:15; Stop 12/15/20 at 15:19; Status DC Diltiazem HCl 125 mg/Sodium Chloride 125 ml @ 5 mls/hr CONT PRN IV PER PROTOCOL Last administered on 12/15/20at 06:27; Start 12/13/20 at 15:15; Stop 12/15/20 at 15:19; Status DC Olanzapine (ZyPREXA ZYDIS) 5 mg PRN BID PRN PO ANXIETY / AGITATION Last administered on 12/15/20at 08:31; Start 12/15/20 at 08:30 Olanzapine (ZyPREXA IM) 10 mg 1X ONCE IM Last administered on 12/15/20at 09:00; Start 12/15/20 at 09:00; Stop 12/15/20 at 09:01; Status DC Metoprolol Tartrate (Lopressor Vial) 5 mg Q6HRS IVP ; Start 12/15/20 at 15:30; Stop 12/15/20 at 15:58; Status DC Enoxaparin Sodium (Lovenox Per Pharmacy Treatment Dosing) 1 each PRN DAILY PRN MC SEE COMMENTS; Start 12/15/20 at 15:30 Enoxaparin Sodium (Lovenox 80mg Syringe) 80 mg Q12H SQ Last administered on 12/18/20at 06:43; Start 12/15/20 at 18:00 Metoprolol Tartrate (Lopressor Vial) 5 mg Q6H IVP Last administered on 12/18/20at 08:29; Start 12/15/20 at 18:00 Lorazepam (Ativan Inj) 1 mg PRN Q4HRS PRN IVP ANXIETY / AGITATION; Start 12/17/20 at 11:45 Amino Acids/ Electrolytes/ Dextrose 1,000 ml @ 80 mls/hr [id number] IV Last administered on 12/18/20at 14:42; Start 12/17/20 at 11:45 Insulin Glargine (Lantus Syringe) 22 unit QHS SQ Last administered on 12/17/20at 20:18; Start 12/17/20 at 21:00; Stop 12/18/20 at 07:04; Status DC Propofol 100 ml @ 2.289 mls/ hr CONT PRN IV PER PROTOCOL; Start 12/18/20 at 06:00 Fentanyl Citrate 30 ml @ 0 mls/hr CONT PRN PRN IV PER PROTOCOL Last administered on 12/18/20at 07:06; Start 12/18/20 at 06:00 Naloxone HCl (Narcan) 0.4 mg PRN Q2MIN PRN IV SEE INSTRUCTIONS; Start 12/18/20 at 06:00 Sodium Chloride 1,000 ml @ 25 mls/hr Q24H IV Last administered on 12/18/20at 07:39; Start 12/18/20 at 06:00 Midazolam HCl 100 ml @ 1 mls/hr CONT PRN IV SEE PROTOCOL; Start 12/18/20 at 06:45 Phenylephrine HCl 50 mg/Sodium Chloride 255 ml @ 11.674 mls/ hr CONT PRN IV PER PROTOCOL; Start 12/18/20 at 06:45 Insulin Glargine (Lantus Syringe) 30 unit QHS SQ ; Start 12/18/20 at 21:00 Norepinephrine Bitartrate 8 mg/ Dextrose 258 ml @ 14.764 mls/ hr CONT PRN IV PER PROTOCOL Last administered on 12/18/20at 15:29; Start 12/18/20 at 07:15 Dexmedetomidine HCl 400 mcg/ Sodium Chloride 100 ml @ 3.815 mls/ hr CONT PRN IV PER PROTOCOL Last administered on 12/18/20at 08:38; Start 12/18/20 at 07:15 Vecuronium [place] (Norcuron Bolus) 10 mg STK-MED ONCE IV ; Start 12/18/20 at 07:24; Stop 12/18/20 at 07:24; Status DC Vecuronium [place] (Norcuron Bolus) 6 mg PRN Q4HRS PRN IV VENTILATOR COMPLIANCE Last administered on 12/18/20at 07:37; Start 12/18/20 at 07:30 Etomidate (Amidate) 20 mg 1X ONCE IV Last administered on 12/18/20at 07:43; Start 12/18/20 at 07:45; Stop 12/18/20 at 07:46; Status DC Succinylcholine Chloride (Anectine) 100 mg 1X ONCE IV Last administered on 12/18/20at 07:43; Start 12/18/20 at 07:45; Stop 12/18/20 at 07:46; Status DC Multivitamins/ Minerals Therapeutic (Centrum Multivit-Mineral Liq) 5 ml DAILY PEG Last administered on 12/18/20at 10:51; Start 12/18/20 at 10:00 Pantoprazole Sodium (PROTONIX VIAL for IV PUSH) 40 mg 1X ONCE IVP ; Start 12/18/20 at 15:30; Stop 12/18/20 at 15:31; Status DC Pantoprazole Sodium (Protonix) 40 mg DAILYAC PO ; Start 12/20/20 at 07:30 Active Scripts Active Reported Gabapentin 600 Mg Tablet 600 Mg PO BID Aspirin 81 Mg Tab.chew 1 Tab PO DAILY Pravastatin Sodium 20 Mg Tablet 1 Tab PO QHS Escitalopram Oxalate 10 Mg Tablet 1 Tab PO DAILY Cetirizine Hcl 10 Mg Tablet 1 Tab PO DAILY Lisinopril 20 Mg Tablet 1 Tab PO DAILY Bupropion Xl (Bupropion Hcl) 150 Mg Tab.er.24h 1 Tab PO BID Nexium Capsule (Esomeprazole Magnesium) 40 Mg Capsule.dr 1 Cap PO DAILY Lantus Solostar (Insulin Glargine,Hum.rec.anlog) 100 Unit/1 Ml Insuln.pen 30 Unit SQ QHS Vitals/I & O Vital Sign - Last 24 Hours 12/17/20 12/17/20 12/17/20 12/17/20 17:07 17:08 19:55 20:00 Temp 98.1 98.1 Pulse 97 92 Resp 21 B/P (MAP) 130/73 137/80 (99) Pulse Ox 93 88 O2 Delivery Vapotherm VAPOTHERM Vapotherm O2 Flow Rate 40.0 40.0 40.0 12/17/20 12/17/20 12/17/20 12/17/20 20:51 20:57 22:00 22:56 Temp 98.0 98.0 Pulse 112 Resp 22 B/P (MAP) 151/93 (112) Pulse Ox 90 91 93 88 O2 Delivery VAPOTHERM AND NRB Vapotherm Vapotherm VAPOTHERM AND NRB O2 Flow Rate 40.0 40.0 40.0 12/17/20 12/18/20 12/18/20 12/18/20 23:33 00:20 02:00 03:50 Temp 98.0 98.0 Pulse 112 114 Resp 20 B/P (MAP) 151/93 173/98 (123) Pulse Ox 92 89 84 O2 Delivery Vapotherm Vapotherm VAPOTHERM AND NRB O2 Flow Rate 40.0 40.0 40.0 12/18/20 12/18/20 12/18/20 12/18/20 04:00 05:15 05:30 05:45 Temp 98.4 98.4 Pulse 174 172 170 Resp 40 25 28 B/P (MAP) 205/100 (135) 159/94 (115) 162/109 (126) Pulse Ox 85 79 68 62 O2 Delivery Vapotherm NC+NRB Ventilator Ventilator O2 Flow Rate 40.0 15.0 12/18/20 12/18/20 12/18/20 12/18/20 06:00 06:00 06:15 06:24 Pulse 144 164 146 Resp 34 38 B/P (MAP) 60/32 228/139 (168) 128/86 (100) Pulse Ox 77 77 81 O2 Delivery Ventilator Ventilator Ventilator 12/18/20 12/18/20 12/18/20 12/18/20 06:30 07:00 07:34 07:42 Pulse 156 Resp 24 24 B/P (MAP) 138/109 (119) Pulse Ox 89 87 87 O2 Delivery Mechanical Ventilator Ventilator Ventilator Ventilator 12/18/20 12/18/20 12/18/20 12/18/20 08:00 08:00 08:29 09:39 Temp 98.9 98.9 Pulse 144 140 126 Resp 24 24 B/P (MAP) 147/95 (112) 168/110 138/97 Pulse Ox 95 100 O2 Delivery Ventilator Mechanical Ventilator Ventilator 12/18/20 12/18/20 12/18/20 12/18/20 10:14 11:10 11:24 12:08 Temp 100.1 100.1 Pulse 102 Resp 24 B/P (MAP) 80/63 Pulse Ox 96 100 98 O2 Delivery Ventilator Ventilator Ventilator Mechanical Ventilator 12/18/20 12/18/20 12/18/20 12/18/20 12:09 12:59 13:04 14:23 Pulse 102 97 97 Resp 24 27 27 B/P (MAP) 160/95 133/84 135/83 Pulse Ox 99 99 99 99 O2 Delivery Ventilator Ventilator Ventilator Ventilator 12/18/20 15:26 Temp 98.9 98.9 Pulse 90 Resp 30 B/P (MAP) 153/82 Pulse Ox 99 O2 Delivery Ventilator Intake and Output 12/17/20 12/17/20 12/18/20 15:00 23:00 07:00 Intake Total 0 ml 600 ml 0 ml Output Total 1000 ml 450 ml Balance 0 ml -400 ml -450 ml Justifications for Admission Other Justification ONOFRE ECHAVARRIA MD Dec 18, 2020 16:00
--- NOTE | 2020-12-18 17:00 | NUR ---
Patient's daughter, Samia, called for an update. During the conversation, she request a code changed to a DNR. TK Iraheta was also witnessed to the patient's daughter request. She also requests for a DrNato to call her to discuss the patient's prognosis. She is realistic when discussing the patient's future. Samia,
[2020-12-18] MEDS: MIDAZOLAM 100mg/100ml NS BAG 100 ML IV PRN (21:26)
[2020-12-18] MEDS: INSULIN GLARGINE SYRINGE. SQ SCH (21:30)
[2020-12-19] VITALS (22 sets, daily range): BP systolic 69–145; BP diastolic 50–90
[2020-12-19] MEDS: PIPERACILLIN/TAZOBACTAM 3.375 GM in IV NORMAL SALINE 50ML 50 ML IV SCH ×5 (00:13→23:45)
[2020-12-19] MEDS: METOPROLOL IV PUSH 5 MG/5 ML VIAL. IVP SCH ×5 (00:17→23:44)
[2020-12-19] MEDS: DEXMEDETOMIDINE 400 MCG in IV NORMAL SALINE 100ML 96 ML IV PRN ×3 (00:27→17:54)
[2020-12-19] MEDS: AA 4.25 %/CALCIUM/LYTES/D5W 1,000 ML IV SCH ×2 (04:18→14:16)
[2020-12-19] MEDS: IV NORMAL SALINE 1000ML BAG 1,000 ML IV SCH ×2 (06:00→22:09)
[2020-12-19] MEDS: SENNOSIDES/DOCUSATE 8.6/50MG TABLET. PO SCH ×2 (08:14→22:07)
[2020-12-19] MEDS: MULTIVITAMINS,THERAPEUTIC 5 ML ORAL LIQUID. PEG SCH (08:14)
[2020-12-19] MEDS: ASPIRIN CHEWABLE 81 MG TABLET. PO SCH (08:14)
[2020-12-19] MEDS: DEXAMETHASONE SOD PHOS 4 MG/ML VIAL IVP SCH (08:14)
[2020-12-19] MEDS: LACTOBACILLUS RHAMNOSUS GG 1 CAPSULE. PO SCH ×2 (08:14→22:07)
[2020-12-19 08:29] LABS: BASE EXCESS ABG -1 mmol/L (-3-3); HCO3 ABG 25 mmol/L (21-28); PCO2 ABG 46 mmHg (35-46); PO2 ABG 126 mmHg (65-108); SAT O2 ABG 98 % (92-99)
[2020-12-19 08:30] LABS: FIO2 ABG 100
--- NOTE | 2020-12-19 08:36 | PDOC ---
PULMONARY PROGRESS NOTES DATE: 12/19/20 TIME: 08:36 Subjective Patient intubated on 1031 Currently on 100% FiO2, 12 of PEEP. Vitals Vital Signs Date Time Temp Pulse Resp B/P (MAP) Pulse Ox O2 Delivery O2 Flow Rate FiO2 12/19/20 08:02 100 Ventilator 12/19/20 07:00 78 24 119/74 12/18/20 19:00 101.2 101.2 12/18/20 17:17 15.0 Comments on vent sedated nc at irreg tachy no accessory muscle use no paradaoxical abd motion no rash Labs Laboratory Tests Test 12/17/20 11:45 12/17/20 16:14 12/17/20 20:44 12/18/20 05:20 Glucose (Fingerstick) 237 mg/dL (70-99) 278 mg/dL (70-99) 415 mg/dL (70-99) O2 Saturation 75 % (92-99) Arterial Blood pH 7.49 (7.35-7.45) Arterial Blood pCO2 at Patient Temp 34 mmHg (35-46) Arterial Blood pO2 at Patient Temp < 42 mmHg (65-108) Arterial Blood HCO3 25 mmol/L (21-28) Arterial Blood Base Excess 2 mmol/L (-3-3) FiO2 15lnc 15lnrb Test 12/18/20 07:30 12/18/20 10:40 12/18/20 17:32 12/18/20 21:32 O2 Saturation 87 % (92-99) Arterial Blood pH 7.28 (7.35-7.45) Arterial Blood pCO2 at Patient Temp 55 mmHg (35-46) Arterial Blood pO2 at Patient Temp 63 mmHg (65-108) Arterial Blood HCO3 25 mmol/L (21-28) Arterial Blood Base Excess -2 mmol/L (-3-3) FiO2 Ac 24 500 100% +12 White Blood Count 24.8 x10^3/uL (4.0-11.0) Red Blood Count 4.73 x10^6/uL (4.30-5.70) Hemoglobin 13.7 g/dL (13.0-17.5) Hematocrit 43.1 % (39.0-53.0) Mean Corpuscular Volume 91 fL (79-100) Mean Corpuscular Hemoglobin 29 pg (25-35) Mean Corpuscular Hemoglobin Concent 32 g/dL (31-37) Red Cell Distribution Width 14.6 % (11.5-14.5) Platelet Count 567 x10^3/uL (140-400) Neutrophils (%) (Auto) 95 % (31-73) Lymphocytes (%) (Auto) 2 % (24-48) Monocytes (%) (Auto) 2 % (0-9) Eosinophils (%) (Auto) 0 % (0-3) Basophils (%) (Auto) 0 % (0-3) Neutrophils # (Auto) 23.6 x10^3/uL (1.8-7.7) Lymphocytes # (Auto) 0.5 x10^3/uL (1.0-4.8) Monocytes # (Auto) 0.6 x10^3/uL (0.0-1.1) Eosinophils # (Auto) 0.0 x10^3/uL (0.0-0.7) Basophils # (Auto) 0.1 x10^3/uL (0.0-0.2) Segmented Neutrophils % 91 % (35-66) Band Neutrophils % 4 % (0-9) Lymphocytes % 3 % (24-48) Monocytes % 1 % (0-10) Other Cells % 1 % (0-0) Platelet Estimate Increased (ADEQUATE) Platelet Clumps, EDTA Present Sodium Level 146 mmol/L (136-145) Potassium Level 4.5 mmol/L (3.5-5.1) Chloride Level 109 mmol/L (98-107) Carbon Dioxide Level 28 mmol/L (21-32) Anion Gap 9 (6-14) Blood Urea Nitrogen 51 mg/dL (8-26) Creatinine 1.5 mg/dL (0.7-1.3) Estimated GFR (Cockcroft-Gault) 46.0 BUN/Creatinine Ratio 34 (6-20) Glucose Level 363 mg/dL (70-99) Calcium Level 8.3 mg/dL (8.5-10.1) Total Bilirubin 0.5 mg/dL (0.2-1.0) Aspartate Amino Transf (AST/SGOT) 13 U/L (15-37) Alanine Aminotransferase (ALT/SGPT) 17 U/L (16-63) Alkaline Phosphatase 276 U/L (46-116) Total Protein 6.3 g/dL (6.4-8.2) Albumin 1.7 g/dL (3.4-5.0) Albumin/Globulin Ratio 0.4 (1.0-1.7) Glucose (Fingerstick) 390 mg/dL (70-99) 340 mg/dL (70-99) Test 12/19/20 00:02 12/19/20 08:00 12/19/20 08:23 Glucose (Fingerstick) 330 mg/dL (70-99) 247 mg/dL (70-99) O2 Saturation 98 % (92-99) Arterial Blood pH 7.35 (7.35-7.45) Arterial Blood pCO2 at Patient Temp 46 mmHg (35-46) Arterial Blood pO2 at Patient Temp 126 mmHg (65-108) Arterial Blood HCO3 25 mmol/L (21-28) Arterial Blood Base Excess -1 mmol/L (-3-3) FiO2 100 Laboratory Tests Test 12/18/20 10:40 12/18/20 17:32 12/18/20 21:32 12/19/20 00:02 White Blood Count 24.8 x10^3/uL (4.0-11.0) Red Blood Count 4.73 x10^6/uL (4.30-5.70) Hemoglobin 13.7 g/dL (13.0-17.5) Hematocrit 43.1 % (39.0-53.0) Mean Corpuscular Volume 91 fL (79-100) Mean Corpuscular Hemoglobin 29 pg (25-35) Mean Corpuscular Hemoglobin Concent 32 g/dL (31-37) Red Cell Distribution Width 14.6 % (11.5-14.5) Platelet Count 567 x10^3/uL (140-400) Neutrophils (%) (Auto) 95 % (31-73) Lymphocytes (%) (Auto) 2 % (24-48) Monocytes (%) (Auto) 2 % (0-9) Eosinophils (%) (Auto) 0 % (0-3) Basophils (%) (Auto) 0 % (0-3) Neutrophils # (Auto) 23.6 x10^3/uL (1.8-7.7) Lymphocytes # (Auto) 0.5 x10^3/uL (1.0-4.8) Monocytes # (Auto) 0.6 x10^3/uL (0.0-1.1) Eosinophils # (Auto) 0.0 x10^3/uL (0.0-0.7) Basophils # (Auto) 0.1 x10^3/uL (0.0-0.2) Segmented Neutrophils % 91 % (35-66) Band Neutrophils % 4 % (0-9) Lymphocytes % 3 % (24-48) Monocytes % 1 % (0-10) Other Cells % 1 % (0-0) Platelet Estimate Increased (ADEQUATE) Platelet Clumps, EDTA Present Sodium Level 146 mmol/L (136-145) Potassium Level 4.5 mmol/L (3.5-5.1) Chloride Level 109 mmol/L (98-107) Carbon Dioxide Level 28 mmol/L (21-32) Anion Gap 9 (6-14) Blood Urea Nitrogen 51 mg/dL (8-26) Creatinine 1.5 mg/dL (0.7-1.3) Estimated GFR (Cockcroft-Gault) 46.0 BUN/Creatinine Ratio 34 (6-20) Glucose Level 363 mg/dL (70-99) Calcium Level 8.3 mg/dL (8.5-10.1) Total Bilirubin 0.5 mg/dL (0.2-1.0) Aspartate Amino Transf (AST/SGOT) 13 U/L (15-37) Alanine Aminotransferase (ALT/SGPT) 17 U/L (16-63) Alkaline Phosphatase 276 U/L (46-116) Total Protein 6.3 g/dL (6.4-8.2) Albumin 1.7 g/dL (3.4-5.0) Albumin/Globulin Ratio 0.4 (1.0-1.7) Glucose (Fingerstick) 390 mg/dL (70-99) 340 mg/dL (70-99) 330 mg/dL (70-99) Test 12/19/20 08:00 12/19/20 08:23 O2 Saturation 98 % (92-99) Arterial Blood pH 7.35 (7.35-7.45) Arterial Blood pCO2 at Patient Temp 46 mmHg (35-46) Arterial Blood pO2 at Patient Temp 126 mmHg (65-108) Arterial Blood HCO3 25 mmol/L (21-28) Arterial Blood Base Excess -1 mmol/L (-3-3) FiO2 100 Glucose (Fingerstick) 247 mg/dL (70-99) Medications Active Scripts Medications Dose Route/Sig Max Daily Dose Days Date Category Gabapentin 600 Mg Tablet 600 Mg PO BID 12/12/20 Reported Aspirin 81 Mg Tab.chew 1 Tab PO DAILY 12/12/20 Reported Pravastatin Sodium 20 Mg Tablet 1 Tab PO QHS 12/12/20 Reported Escitalopram Oxalate 10 Mg Tablet 1 Tab PO DAILY 12/12/20 Reported Cetirizine Hcl 10 Mg Tablet 1 Tab PO DAILY 12/12/20 Reported Lisinopril 20 Mg Tablet 1 Tab PO DAILY 12/12/20 Reported Bupropion Xl (Bupropion Hcl) 150 Mg Tab.er.24h 1 Tab PO BID 12/12/20 Reported Nexium Capsule (Esomeprazole Magnesium) 40 Mg Capsule.dr 1 Cap PO DAILY 12/12/20 Reported Lantus Solostar (Insulin Glargine,Hum.rec.anlog) 100 Unit/1 Ml Insuln.pen 30 Unit SQ QHS 12/12/20 Reported Impression . IMPRESSION: 1. Acute hypoxemic respiratory failure secondary to COVID-19 viral pneumonia. worsening intubated 12/18 2. COVID-19 viral pneumonia. 3. Type 2 diabetes. 4. Severe protein malnutrition, present upon admission. 5. Acute toxic encephalopathy, present upon admission 6. A. fib w rvr 7. shock septic hypotensive 8. abnl cxr 9. Coronary artery disease Plan . Updated 12/19 Continue assist-control ventilation 100%, 12 of PEEP ABG and labs noted Follow cardiology input for A. fib Patient received remdesivir Continue dexamethasone Prognosis is poor Updated 12/18 cont vent setting peep 12 fio2 100% cxr b lat infilt no ptx will do abg change setting per abg art line hypotensive start nicole tachycardic avoid levo afib w rvr per cardiology elevated hob Remdesivir, dexamethasone Empiric antibiotics Patient is full code Follow cardiology input discussed w rn rt critically ill cct 30 min no overlap Updated 12/17 cont bipap setting reviewed titrate fio2 to keep sat 90% elevated hob change meds to iv no safe to take po when on bipap for long period of time Continue current support Remdesivir, dexamethasone Empiric antibiotics Patient is full code Follow cardiology input discussed w CR Sparks MD Dec 19, 2020 08:36
[2020-12-19] MEDS: INSULIN LISPRO 300 UNITS/3 ML VIAL. SQ SCH ×3 (08:48→17:53)
[2020-12-19] MEDS: DOXYCYCLINE HYCLATE 100 MG in IV DEXTROSE 5% 100ML 100 ML IV SCH ×2 (09:00→22:07)
--- NOTE | 2020-12-19 11:53 | PDOC ---
[employer] PROGRESS NOTE Date of Service DOS: DATE: 12/19/20 TIME: 11:51 Chief Complaint Chief Complaint acute Covid-19 respiratory failure Acute hypoxic respiratory failure with Bilateral infiltrates, ARDS acute metabolic encephalopathy sepsis, malnutrition COPD - emphysema CAD Hyperlipidemia Sleep apnea Poorly controlled diabetes Atrial fibrillation with rapid ventricular response - History of Present Illness History of Present Illness Mr Hamilton is a 70-year-old male w/ PMHx COPD, CAD, HLD, ELLIOT, DM2 (a1c 14) admitted for trouble with balance on 12/05/2020. Was found to be COVID positive, he was transferred to [facility]. 12/12: On 100% nonrebreather. Pleasantly confused. He appears quite ill. Went into rapid afib. Cardiology and pulmonology consulted. 12/13: Currently on 100% nonrebreather. Pleasantly confused. He keeps pulling off his nonrebreather and desats to 60. 12/14: Had to change him over to Vapotherm 40 L 100% FiO2 currently satting 95% (he kept pulling his mask off of the nonrebreather). He still remains quite ill 12/15: Febrile. Continues to pull off his oxygen. Pulling on his IVs overnight. Took off BIPAP. Responsive to IM zyprexa. Due to multiple blood draws and loss of IV access, requires heparin GTT and cardizem will order PICC 12/17: 12/07, start CLINIMIX IV nutrition PRN IV ativan BP good on PRN increase Lantus insulin dose on 65% bipap, discussed with RT, try to wean to vapotherm 12/18: Due to worsening respiratory distress patient was moved to ICU and intubated overnight. Chest x-ray, KUB pending. Afebrile. Still with significant hyperglycemia likely secondary to Clinimix, will adjust insulin. S/P remdesivir; continue Decadron to complete 10-day course. Continue empiric antibiotics and supportive care. 30 minutes critical care time spent reviewing charts, reviewing labs, reviewing imaging, discussion with Dr. Mason, and discussion with RN. 12/19 Patient evaluated and examined at bedside. Remains intubated and sedated. Still requiring vasopressors. Remains on Decadron and antibiotics. Very poor prognosis. Patient family considering withdrawal of care. 30 minutes critical care time spent reviewing charts, reviewing labs, reviewing imaging, and discussion with RN Vitals/I&O Vitals/I&O: Vital Signs Date Time Temp Pulse Resp B/P (MAP) Pulse Ox O2 Delivery O2 Flow Rate FiO2 12/19/20 11:30 100 Ventilator 12/19/20 11:00 98 24 85/66 12/19/20 08:00 98.4 98.4 12/18/20 17:17 15.0 I & O 12/18/20 12/18/20 12/19/20 15:00 23:00 07:00 Intake Total 50 ml 637 ml 0 ml Output Total 50 ml 500 ml 525 ml Balance 0 ml 137 ml -525 ml Physical Exam Physical Exam: confused, in mittens General: mild distress, Other (Confused) Heart: Other (Tachycardic and irregularly irregular) Lungs: Other (Intubated mechanically ventilated) Abdomen: Soft Extremities: No clubbing, No edema Skin: No rashes Labs Labs: Laboratory Tests Test 12/18/20 17:32 12/18/20 21:32 12/19/20 00:02 12/19/20 08:00 Glucose (Fingerstick) 390 mg/dL (70-99) 340 mg/dL (70-99) 330 mg/dL (70-99) O2 Saturation 98 % (92-99) Arterial Blood pH 7.35 (7.35-7.45) Arterial Blood pCO2 at Patient Temp 46 mmHg (35-46) Arterial Blood pO2 at Patient Temp 126 mmHg (65-108) Arterial Blood HCO3 25 mmol/L (21-28) Arterial Blood Base Excess -1 mmol/L (-3-3) FiO2 100 Test 12/19/20 08:23 Glucose (Fingerstick) 247 mg/dL (70-99) Comment Review of Relevant I have reviewed the following items tina (where applicable) has been applied. Medications: Current Medications Medications (Trade) Dose Ordered Sig/Vandana Route PRN Reason Start Time Stop Time Status Last Admin Dose Admin Insulin Glargine (Lantus Syringe) 30 unit QHS SQ 12/18/20 21:00 12/18/20 21:30 Pantoprazole Sodium (PROTONIX VIAL for IV PUSH) 40 mg 1X ONCE IVP 12/18/20 15:30 12/18/20 15:31 DC 12/18/20 16:50 Justifications for Admission Other Justification BRITTNY MATTHEW MD Dec 19, 2020 11:53
--- NOTE | 2020-12-19 13:39 | PDOC ---
ROSA CUELLO PRINCIPAL PROCESS ENGINEER 12/19/20 1339: CARDIO Progress Notes Date and Time Date of Service 12/19/20 Time of Evaluation 1310 Subjective Subjective: Other (intubated ) Vitals Vitals Vital Signs Date Time Temp Pulse Resp B/P (MAP) Pulse Ox O2 Delivery O2 Flow Rate FiO2 12/19/20 13:13 93 89/60 12/19/20 13:04 100 Ventilator 12/19/20 13:00 26 12/19/20 12:00 98.6 98.6 12/18/20 17:17 15.0 Weight Weight [ ] Input and Output Intake and Output Intake and Output 12/19/20 07:00 Intake Total 687 ml Output Total 1075 ml Balance -388 ml Intake Oral 0 ml IV Total 687 ml Output Urine Total 1075 ml Laboratory Labs Laboratory Tests Test 12/18/20 17:32 12/18/20 21:32 12/19/20 00:02 12/19/20 08:00 Glucose (Fingerstick) 390 mg/dL (70-99) 340 mg/dL (70-99) 330 mg/dL (70-99) O2 Saturation 98 % (92-99) Arterial Blood pH 7.35 (7.35-7.45) Arterial Blood pCO2 at Patient Temp 46 mmHg (35-46) Arterial Blood pO2 at Patient Temp 126 mmHg (65-108) Arterial Blood HCO3 25 mmol/L (21-28) Arterial Blood Base Excess -1 mmol/L (-3-3) FiO2 100 Test 12/19/20 08:23 Glucose (Fingerstick) 247 mg/dL (70-99) Physical Exam HEENT: Neck Supple W Full Motion Chest: Symmetric LUNGS: Other (mechanical vent ) Heart: irregularly irregular (a-flutter ) Abdomen: Other (nondistended) Extremities: No Edema Neurology: other (sedated ) Assessment Assessment 1. Atrial fibrillation with RVR, new onset in the setting of COVID PNA. Remains in a-flutter, rate controlled 2. Acute hypoxic respiratory failure secondary to COVID PNA. requiring BiPAP support 3. Hypertension; better controlled 4. Hyperlipidemia: Statins 5. CAD; details unknown. appears clinically stable 6. Diabetes, II 7. Protein calorie malnutrition 8. Encephalopathy with underlying dementia 9. MACARIO 10. Protein calorie malnutrition Recommendations Continue metoprolol for rate control as BP allows IV Dig PRN Lovenox for stroke prophylaxis. Ongoing lung optimization, treatment of COVID as per pulmonary Supportive care Justicifation of Admission Dx: Justifications for Admission: Justification of Admission Dx: Yes CHF: Cardiac Arrhythmias JEROMY ZAVALA MD 12/20/20 0932: CARDIO Progress Notes Assessment Assessment Patient seen and examined 12/19/2020. Agree with FIRE ALARM INSTALLER's assessment and plan. Atrial fibrillation/flutter rate controlled. Continue current treatment for acute respiratory failure secondary to Covid pneumonia per pulmonary team. ROSA CUELLO APRN Dec 19, 2020 13:39 JEROMY ZAVALA MD Dec 20, 2020 09:32
[2020-12-19] MEDS: MIDAZOLAM 100mg/100ml NS BAG 100 ML IV PRN (14:16)
--- NOTE | 2020-12-19 16:19 | NUR ---
SS following up with discharge planning. SS reviewed pt chart and discussed with pt RN. Pt is currently on the vent at 100%. Peep of 12. COVID19 positive. Pt on Clinimix, IV Zosyn, and IV Decadron. Pt on Fentanyl, Versed, Precedex, and Levophed. Not stable. DNR. SS will continue to follow for discharge planning.
[2020-12-19] MEDS: INSULIN GLARGINE SYRINGE. SQ SCH (21:00)
[2020-12-20] VITALS (15 sets, daily range): BP systolic 63–102; BP diastolic 53–71
[2020-12-20] MEDS: MIDAZOLAM 100mg/100ml NS BAG 100 ML IV PRN (02:03)
[2020-12-20] MEDS: DEXMEDETOMIDINE 400 MCG in IV NORMAL SALINE 100ML 96 ML IV PRN (02:04)
[2020-12-20 02:05] LABS: BASO % 0 % (0-3); EOS % 0 % (0-3); HEMATOCRIT 41.2 % (39.0-53.0); LYMPH # 0.5 x10^3/uL (1.0-4.8); LYMPH % 2 % (24-48); MEAN CORPUSCULAR HEMOGLOBIN 29 pg (25-35); MEAN CORPUSCULAR HGB CONC 32 g/dL (31-37); MEAN CORPUSCULAR VOLUME 92 fL (79-100); MONO # 0.6 x10^3/uL (0.0-1.1); MONO % 3 % (0-9); NEUT % 94 % (31-73); PLATELET COUNT 244 x10^3/uL (140-400); RED BLOOD COUNT 4.49 x10^6/uL (4.30-5.70); RED CELL DISTRIBUTION WIDTH 15.1 % (11.5-14.5); WHITE BLOOD COUNT 19.1 x10^3/uL (4.0-11.0)
[2020-12-20 02:28] LABS: ALBUMIN 1.4 g/dL (3.4-5.0); ALBUMIN/GLOBULIN RATIO 0.3 (1.0-1.7); CALCIUM 7.7 mg/dL (8.5-10.1); CREATININE 3.1 mg/dL (0.7-1.3); GFR 19.9; MAGNESIUM 2.5 mg/dL (1.8-2.4); TOTAL BILIRUBIN 0.6 mg/dL (0.2-1.0)
[2020-12-20 02:30] LABS: POTASSIUM 6.2 mmol/L (3.5-5.1)
[2020-12-20] MEDS ORDERED: IV NORMAL SALINE 500ML BAG 500 ML IV ONE (02:45)
[2020-12-20] MEDS ORDERED: AMIODARONE 150 MG in IV DEXTROSE 5% 100ML 100 ML IV ONE (03:00)
[2020-12-20] MEDS: AA 4.25 %/CALCIUM/LYTES/D5W 1,000 ML IV SCH (03:44)
[2020-12-20] MEDS: NOREPINEPHRINE VIAL 8 MG in IV DEXTROSE 5% 250 ML IV PRN (04:00)
[2020-12-20] MEDS ORDERED: METOPROLOL IV PUSH 5 MG/5 ML VIAL. IVP ONE (04:30)
[2020-12-20] MEDS: PIPERACILLIN/TAZOBACTAM 3.375 GM in IV NORMAL SALINE 50ML 50 ML IV SCH ×2 (05:27→12:00)
[2020-12-20] MEDS: METOPROLOL IV PUSH 5 MG/5 ML VIAL. IVP SCH ×2 (06:00→12:00)
[2020-12-20] MEDS ORDERED: ACETAMINOPHEN 650 MG SUPP.RECT. PR PRN (06:45)
--- NOTE | 2020-12-20 07:00 | NUR ---
Patient care assume after shift change report. Patient heart rated/ rhythm noted to be in afib rvr in 157s and hypotensive. Digoxin given once per cardiology. Patient Temperature unreadable by portable thermometer. Temp-sensing Vincent catcher placed. Initial Temp 105.4 obtained upon placement; highest Temp was 107.6. Patient placed on cooling blanket with ices bags and Tylenol suppository also given. Md notified. Orders received see chart. Rapid titration of Levophed d/t sustained MAP <65; Levophed stopped d/t fast HR; James started and increase to max rate of 3mcg/kg. Vasopressin started at 12unit. Patient remained unstable. Family agreeable to withdraw care at time of this charting. See chart for more details.
[2020-12-20] MEDS ORDERED: DIGOXIN IV 500 MCG/2 ML AMPUL. IV ONE (07:30)
[2020-12-20] MEDS ORDERED: PANTOPRAZOLE 40 MG TABLET.DR. PO SCH (07:30)
[2020-12-20] MEDS: ASPIRIN CHEWABLE 81 MG TABLET. PO SCH (08:00)
--- NOTE | 2020-12-20 08:16 | EKG ---
[facility] [address] [place] [address] Test Date: 2020-12-20 Test Time: 08:15:25 Pat Name: IRIS QUIROGA Department: Room: [facility] 1 Gender: M Photo Checker And Assembler: CYNDIE : 1950 Requested By: BRITTNY MATTHEW Order Number: [id number] Reading MD: Familia Mendosa Measurements Intervals [place] Rate: 131 P: MT: QRS: 142 QRSD: 106 T: -83 QT: 296 QTc: 442 Interpretive Statements IRREGULAR RHYTHM, NO P-WAVE FOUND QRS(T) CONTOUR ABNORMALITY CONSISTENT WITH LATERAL INFARCT AGE UNDETERMINED ST ABNORMALITY, POSSIBLE ANTERIOR SUBENDOCARDIAL INJURY INFERIOR SUBENDOCARDIAL INJURY ABNORMAL ECG RI6.01 Electronically Signed On 12-26-2020 10:28:54 RETAIL STOCKER by Familia Mendosa
[2020-12-20 08:35] LABS: BASE EXCESS ABG -10 mmol/L (-3-3); HCO3 ABG 20 mmol/L (21-28); PO2 ABG 110 mmHg (65-108); SAT O2 ABG 97 % (92-99)
[2020-12-20 08:37] LABS: CORRECTED PCO2 ABG 83 mmHg; CORRECTED PH ABG 7.04; CORRECTED PO2 ABG 144 mmHg
[2020-12-20 08:42] LABS: FIO2 ABG 100; PCO2 ABG 67 mmHg (35-46)
[2020-12-20] MEDS ORDERED: HEPARIN for IV BOLUS 10,000 UNIT/10 ML VIAL. IV PRN (08:45)
[2020-12-20] MEDS ORDERED: HEPARIN 25,000UTS/250ML PREMIX 250 ML IV PRN (08:45)
[2020-12-20] MEDS ORDERED: VASOPRESSIN - VASOSTRICT 20 UNIT in IV DEXTROSE 5% 100ML 100 ML IV PRN (09:00)
[2020-12-20] MEDS: SENNOSIDES/DOCUSATE 8.6/50MG TABLET. PO SCH (09:00)
[2020-12-20] MEDS: MULTIVITAMINS,THERAPEUTIC 5 ML ORAL LIQUID. PEG SCH (09:00)
[2020-12-20] MEDS: LACTOBACILLUS RHAMNOSUS GG 1 CAPSULE. PO SCH (09:00)
[2020-12-20] MEDS: DOXYCYCLINE HYCLATE 100 MG in IV DEXTROSE 5% 100ML 100 ML IV SCH (09:00)
[2020-12-20 09:09] LABS: CALCIUM 7.3 mg/dL (8.5-10.1); GFR 14.8
[2020-12-20 09:12] LABS: POTASSIUM 6.8 mmol/L (3.5-5.1)
--- NOTE | 2020-12-20 09:14 | PDOC ---
PULMONARY PROGRESS NOTES DATE: 12/20/20 TIME: 09:14 Subjective Patient intubated on 12/18 Currently on tidal volume 500, 28 rate, 12 of PEEP, 100% ABG noted, permissive hypercapnia Vitals Vital Signs Date Time Temp Pulse Resp B/P (MAP) Pulse Ox O2 Delivery O2 Flow Rate FiO2 12/20/20 08:25 99 Ventilator 12/20/20 07:28 167 97/56 12/20/20 06:00 102.3 102.3 12/20/20 03:40 24 Comments on vent sedated nc at irreg tachy no accessory muscle use no paradaoxical abd motion no rash Labs Laboratory Tests Test 12/18/20 10:40 12/18/20 17:32 12/18/20 21:32 12/19/20 00:02 White Blood Count 24.8 x10^3/uL (4.0-11.0) Red Blood Count 4.73 x10^6/uL (4.30-5.70) Hemoglobin 13.7 g/dL (13.0-17.5) Hematocrit 43.1 % (39.0-53.0) Mean Corpuscular Volume 91 fL (79-100) Mean Corpuscular Hemoglobin 29 pg (25-35) Mean Corpuscular Hemoglobin Concent 32 g/dL (31-37) Red Cell Distribution Width 14.6 % (11.5-14.5) Platelet Count 567 x10^3/uL (140-400) Neutrophils (%) (Auto) 95 % (31-73) Lymphocytes (%) (Auto) 2 % (24-48) Monocytes (%) (Auto) 2 % (0-9) Eosinophils (%) (Auto) 0 % (0-3) Basophils (%) (Auto) 0 % (0-3) Neutrophils # (Auto) 23.6 x10^3/uL (1.8-7.7) Lymphocytes # (Auto) 0.5 x10^3/uL (1.0-4.8) Monocytes # (Auto) 0.6 x10^3/uL (0.0-1.1) Eosinophils # (Auto) 0.0 x10^3/uL (0.0-0.7) Basophils # (Auto) 0.1 x10^3/uL (0.0-0.2) Segmented Neutrophils % 91 % (35-66) Band Neutrophils % 4 % (0-9) Lymphocytes % 3 % (24-48) Monocytes % 1 % (0-10) Other Cells % 1 % (0-0) Platelet Estimate Increased (ADEQUATE) Platelet Clumps, EDTA Present Sodium Level 146 mmol/L (136-145) Potassium Level 4.5 mmol/L (3.5-5.1) Chloride Level 109 mmol/L (98-107) Carbon Dioxide Level 28 mmol/L (21-32) Anion Gap 9 (6-14) Blood Urea Nitrogen 51 mg/dL (8-26) Creatinine 1.5 mg/dL (0.7-1.3) Estimated GFR (Cockcroft-Gault) 46.0 BUN/Creatinine Ratio 34 (6-20) Glucose Level 363 mg/dL (70-99) Calcium Level 8.3 mg/dL (8.5-10.1) Total Bilirubin 0.5 mg/dL (0.2-1.0) Aspartate Amino Transf (AST/SGOT) 13 U/L (15-37) Alanine Aminotransferase (ALT/SGPT) 17 U/L (16-63) Alkaline Phosphatase 276 U/L (46-116) Total Protein 6.3 g/dL (6.4-8.2) Albumin 1.7 g/dL (3.4-5.0) Albumin/Globulin Ratio 0.4 (1.0-1.7) Glucose (Fingerstick) 390 mg/dL (70-99) 340 mg/dL (70-99) 330 mg/dL (70-99) Test 12/19/20 08:00 12/19/20 08:23 12/19/20 13:17 12/19/20 17:52 O2 Saturation 98 % (92-99) Arterial Blood pH 7.35 (7.35-7.45) Arterial Blood pCO2 at Patient Temp 46 mmHg (35-46) Arterial Blood pO2 at Patient Temp 126 mmHg (65-108) Arterial Blood HCO3 25 mmol/L (21-28) Arterial Blood Base Excess -1 mmol/L (-3-3) FiO2 100 Glucose (Fingerstick) 247 mg/dL (70-99) 157 mg/dL (70-99) 158 mg/dL (70-99) Test 12/19/20 22:58 12/20/20 00:41 12/20/20 01:45 12/20/20 08:25 Glucose (Fingerstick) 100 mg/dL (70-99) 112 mg/dL (70-99) White Blood Count 19.1 x10^3/uL (4.0-11.0) Red Blood Count 4.49 x10^6/uL (4.30-5.70) Hemoglobin 13.0 g/dL (13.0-17.5) Hematocrit 41.2 % (39.0-53.0) Mean Corpuscular Volume 92 fL (79-100) Mean Corpuscular Hemoglobin 29 pg (25-35) Mean Corpuscular Hemoglobin Concent 32 g/dL (31-37) Red Cell Distribution Width 15.1 % (11.5-14.5) Platelet Count 244 x10^3/uL (140-400) Neutrophils (%) (Auto) 94 % (31-73) Lymphocytes (%) (Auto) 2 % (24-48) Monocytes (%) (Auto) 3 % (0-9) Eosinophils (%) (Auto) 0 % (0-3) Basophils (%) (Auto) 0 % (0-3) Neutrophils # (Auto) 18.0 x10^3/uL (1.8-7.7) Lymphocytes # (Auto) 0.5 x10^3/uL (1.0-4.8) Monocytes # (Auto) 0.6 x10^3/uL (0.0-1.1) Eosinophils # (Auto) 0.0 x10^3/uL (0.0-0.7) Basophils # (Auto) 0.0 x10^3/uL (0.0-0.2) Sodium Level 145 mmol/L (136-145) Potassium Level 6.2 mmol/L (3.5-5.1) Chloride Level 110 mmol/L (98-107) Carbon Dioxide Level 25 mmol/L (21-32) Anion Gap 10 (6-14) Blood Urea Nitrogen 88 mg/dL (8-26) Creatinine 3.1 mg/dL (0.7-1.3) Estimated GFR (Cockcroft-Gault) 19.9 BUN/Creatinine Ratio 28 (6-20) Glucose Level 126 mg/dL (70-99) Calcium Level 7.7 mg/dL (8.5-10.1) Magnesium Level 2.5 mg/dL (1.8-2.4) Total Bilirubin 0.6 mg/dL (0.2-1.0) Aspartate Amino Transf (AST/SGOT) 29 U/L (15-37) Alanine Aminotransferase (ALT/SGPT) 12 U/L (16-63) Alkaline Phosphatase 151 U/L (46-116) Total Protein 6.0 g/dL (6.4-8.2) Albumin 1.4 g/dL (3.4-5.0) Albumin/Globulin Ratio 0.3 (1.0-1.7) O2 Saturation 97 % (92-99) Arterial Blood pH 7.10 (7.35-7.45) Arterial Blood pH (Temp corrected) 7.04 Arterial Blood pCO2 at Patient Temp 67 mmHg (35-46) Arterial Blood pCO2 (Temp correct) 83 mmHg Arterial Blood pO2 at Patient Temp 110 mmHg (65-108) Arterial Blood pO2 (Temp corrected) 144 mmHg Arterial Blood HCO3 20 mmol/L (21-28) Arterial Blood Base Excess -10 mmol/L (-3-3) FiO2 100 Test 12/20/20 08:45 Sodium Level 143 mmol/L (136-145) Potassium Level 6.8 mmol/L (3.5-5.1) Chloride Level 108 mmol/L (98-107) Carbon Dioxide Level 25 mmol/L (21-32) Anion Gap 10 (6-14) Blood Urea Nitrogen 103 mg/dL (8-26) Creatinine 4.0 mg/dL (0.7-1.3) Estimated GFR (Cockcroft-Gault) 14.8 Glucose Level 190 mg/dL (70-99) Calcium Level 7.3 mg/dL (8.5-10.1) Laboratory Tests Test 12/19/20 13:17 12/19/20 17:52 12/19/20 22:58 12/20/20 00:41 Glucose (Fingerstick) 157 mg/dL (70-99) 158 mg/dL (70-99) 100 mg/dL (70-99) 112 mg/dL (70-99) Test 12/20/20 01:45 12/20/20 08:25 12/20/20 08:45 White Blood Count 19.1 x10^3/uL (4.0-11.0) Red Blood Count 4.49 x10^6/uL (4.30-5.70) Hemoglobin 13.0 g/dL (13.0-17.5) Hematocrit 41.2 % (39.0-53.0) Mean Corpuscular Volume 92 fL (79-100) Mean Corpuscular Hemoglobin 29 pg (25-35) Mean Corpuscular Hemoglobin Concent 32 g/dL (31-37) Red Cell Distribution Width 15.1 % (11.5-14.5) Platelet Count 244 x10^3/uL (140-400) Neutrophils (%) (Auto) 94 % (31-73) Lymphocytes (%) (Auto) 2 % (24-48) Monocytes (%) (Auto) 3 % (0-9) Eosinophils (%) (Auto) 0 % (0-3) Basophils (%) (Auto) 0 % (0-3) Neutrophils # (Auto) 18.0 x10^3/uL (1.8-7.7) Lymphocytes # (Auto) 0.5 x10^3/uL (1.0-4.8) Monocytes # (Auto) 0.6 x10^3/uL (0.0-1.1) Eosinophils # (Auto) 0.0 x10^3/uL (0.0-0.7) Basophils # (Auto) 0.0 x10^3/uL (0.0-0.2) Sodium Level 145 mmol/L (136-145) 143 mmol/L (136-145) Potassium Level 6.2 mmol/L (3.5-5.1) 6.8 mmol/L (3.5-5.1) Chloride Level 110 mmol/L (98-107) 108 mmol/L (98-107) Carbon Dioxide Level 25 mmol/L (21-32) 25 mmol/L (21-32) Anion Gap 10 (6-14) 10 (6-14) Blood Urea Nitrogen 88 mg/dL (8-26) 103 mg/dL (8-26) Creatinine 3.1 mg/dL (0.7-1.3) 4.0 mg/dL (0.7-1.3) Estimated GFR (Cockcroft-Gault) 19.9 14.8 BUN/Creatinine Ratio 28 (6-20) Glucose Level 126 mg/dL (70-99) 190 mg/dL (70-99) Calcium Level 7.7 mg/dL (8.5-10.1) 7.3 mg/dL (8.5-10.1) Magnesium Level 2.5 mg/dL (1.8-2.4) Total Bilirubin 0.6 mg/dL (0.2-1.0) Aspartate Amino Transf (AST/SGOT) 29 U/L (15-37) Alanine Aminotransferase (ALT/SGPT) 12 U/L (16-63) Alkaline Phosphatase 151 U/L (46-116) Total Protein 6.0 g/dL (6.4-8.2) Albumin 1.4 g/dL (3.4-5.0) Albumin/Globulin Ratio 0.3 (1.0-1.7) O2 Saturation 97 % (92-99) Arterial Blood pH 7.10 (7.35-7.45) Arterial Blood pH (Temp corrected) 7.04 Arterial Blood pCO2 at Patient Temp 67 mmHg (35-46) Arterial Blood pCO2 (Temp correct) 83 mmHg Arterial Blood pO2 at Patient Temp 110 mmHg (65-108) Arterial Blood pO2 (Temp corrected) 144 mmHg Arterial Blood HCO3 20 mmol/L (21-28) Arterial Blood Base Excess -10 mmol/L (-3-3) FiO2 100 Medications Active Scripts Medications Dose Route/Sig Max Daily Dose Days Date Category Gabapentin 600 Mg Tablet 600 Mg PO BID 12/12/20 Reported Aspirin 81 Mg Tab.chew 1 Tab PO DAILY 12/12/20 Reported Pravastatin Sodium 20 Mg Tablet 1 Tab PO QHS 12/12/20 Reported Escitalopram Oxalate 10 Mg Tablet 1 Tab PO DAILY 12/12/20 Reported Cetirizine Hcl 10 Mg Tablet 1 Tab PO DAILY 12/12/20 Reported Lisinopril 20 Mg Tablet 1 Tab PO DAILY 12/12/20 Reported Bupropion Xl (Bupropion Hcl) 150 Mg Tab.er.24h 1 Tab PO BID 12/12/20 Reported Nexium Capsule (Esomeprazole Magnesium) 40 Mg Capsule.dr 1 Cap PO DAILY 12/12/20 Reported Lantus Solostar (Insulin Glargine,Hum.rec.anlog) 100 Unit/1 Ml Insuln.pen 30 Unit SQ QHS 12/12/20 Reported Impression . IMPRESSION: 1. Acute hypoxemic respiratory failure secondary to COVID-19 viral pneumonia. worsening intubated 12/18 2. COVID-19 viral pneumonia. 3. Type 2 diabetes. 4. Severe protein malnutrition, present upon admission. 5. Acute toxic encephalopathy, present upon admission 6. New A. fib 7. Septic shock 8. Permissive hypercapnia 9. Coronary artery disease 10. Acute renal failure 11. Hyperkalemia Plan . Updated 12/20 Discussed with RN Continue current vent settings ABG noted Patient oxygenating well Inverse ratio Start decreasing PEEP Discussed with RT Patient received remdesivir Continue dexamethasone Follow cardiology input Monitor labs Discussed with daughter, family wishes to withdraw care I concur chances of recovery close to 0 updated 12/19 Continue assist-control ventilation 100%, 12 of PEEP ABG and labs noted Follow cardiology input for A. fib Patient received remdesivir Continue dexamethasone Prognosis is poor Updated 12/18 cont vent setting peep 12 fio2 100% cxr b lat infilt no ptx will do abg change setting per abg art line hypotensive start nicole tachycardic avoid levo CR MANDUJANO MD Dec 20, 2020 09:14
[2020-12-20] MEDS: DEXAMETHASONE SOD PHOS 4 MG/ML VIAL IVP SCH (09:50)
[2020-12-20] MEDS ORDERED: PANTOPRAZOLE IV PUSH 40 MG VIAL. IVP SCH (10:00)
--- NOTE | 2020-12-20 10:30 | PDOC ---
ROSA CUELLO PAYROLL TAX ANALYST 12/20/20 1030: CARDIO Progress Notes Date and Time Date of Service 12/20/20 Time of Evaluation 1250 Subjective Subjective: Other (intubated ) Vitals Vitals Vital Signs Date Time Temp Pulse Resp B/P (MAP) Pulse Ox O2 Delivery O2 Flow Rate FiO2 12/20/20 08:25 99 Ventilator 12/20/20 07:28 167 97/56 12/20/20 06:00 102.3 102.3 12/20/20 03:40 24 Weight Weight [ ] Input and Output Intake and Output Intake and Output 12/20/20 07:00 Output Total 1635 ml Balance -1635 ml Output Urine Total 935 ml Gastric Drainage Total 700 ml Laboratory Labs Laboratory Tests Test 12/19/20 13:17 12/19/20 17:52 12/19/20 22:58 12/20/20 00:41 Glucose (Fingerstick) 157 mg/dL (70-99) 158 mg/dL (70-99) 100 mg/dL (70-99) 112 mg/dL (70-99) Test 12/20/20 01:45 12/20/20 08:25 12/20/20 08:45 White Blood Count 19.1 x10^3/uL (4.0-11.0) Red Blood Count 4.49 x10^6/uL (4.30-5.70) Hemoglobin 13.0 g/dL (13.0-17.5) Hematocrit 41.2 % (39.0-53.0) Mean Corpuscular Volume 92 fL (79-100) Mean Corpuscular Hemoglobin 29 pg (25-35) Mean Corpuscular Hemoglobin Concent 32 g/dL (31-37) Red Cell Distribution Width 15.1 % (11.5-14.5) Platelet Count 244 x10^3/uL (140-400) Neutrophils (%) (Auto) 94 % (31-73) Lymphocytes (%) (Auto) 2 % (24-48) Monocytes (%) (Auto) 3 % (0-9) Eosinophils (%) (Auto) 0 % (0-3) Basophils (%) (Auto) 0 % (0-3) Neutrophils # (Auto) 18.0 x10^3/uL (1.8-7.7) Lymphocytes # (Auto) 0.5 x10^3/uL (1.0-4.8) Monocytes # (Auto) 0.6 x10^3/uL (0.0-1.1) Eosinophils # (Auto) 0.0 x10^3/uL (0.0-0.7) Basophils # (Auto) 0.0 x10^3/uL (0.0-0.2) Sodium Level 145 mmol/L (136-145) 143 mmol/L (136-145) Potassium Level 6.2 mmol/L (3.5-5.1) 6.8 mmol/L (3.5-5.1) Chloride Level 110 mmol/L (98-107) 108 mmol/L (98-107) Carbon Dioxide Level 25 mmol/L (21-32) 25 mmol/L (21-32) Anion Gap 10 (6-14) 10 (6-14) Blood Urea Nitrogen 88 mg/dL (8-26) 103 mg/dL (8-26) Creatinine 3.1 mg/dL (0.7-1.3) 4.0 mg/dL (0.7-1.3) Estimated GFR (Cockcroft-Gault) 19.9 14.8 BUN/Creatinine Ratio 28 (6-20) Glucose Level 126 mg/dL (70-99) 190 mg/dL (70-99) Calcium Level 7.7 mg/dL (8.5-10.1) 7.3 mg/dL (8.5-10.1) Magnesium Level 2.5 mg/dL (1.8-2.4) Total Bilirubin 0.6 mg/dL (0.2-1.0) Aspartate Amino Transf (AST/SGOT) 29 U/L (15-37) Alanine Aminotransferase (ALT/SGPT) 12 U/L (16-63) Alkaline Phosphatase 151 U/L (46-116) Total Protein 6.0 g/dL (6.4-8.2) Albumin 1.4 g/dL (3.4-5.0) Albumin/Globulin Ratio 0.3 (1.0-1.7) O2 Saturation 97 % (92-99) Arterial Blood pH 7.10 (7.35-7.45) Arterial Blood pH (Temp corrected) 7.04 Arterial Blood pCO2 at Patient Temp 67 mmHg (35-46) Arterial Blood pCO2 (Temp correct) 83 mmHg Arterial Blood pO2 at Patient Temp 110 mmHg (65-108) Arterial Blood pO2 (Temp corrected) 144 mmHg Arterial Blood HCO3 20 mmol/L (21-28) Arterial Blood Base Excess -10 mmol/L (-3-3) FiO2 100 Troponin I High Sensitivity 529 ng/L (4-75) Physical Exam HEENT: Neck Supple W Full Motion Chest: Symmetric LUNGS: Other (mechanical vent ) Heart: irregularly irregular (AFIB) Abdomen: Other (nondistended) Extremities: No Edema Neurology: other (sedated ) Assessment Assessment 1. Atrial fibrillation with RVR, new onset in the setting of COVID PNA. Remains in AFIB, rate controlled 2. Acute hypoxic respiratory failure secondary to COVID PNA. s/p intubation. Fevers up to 107.6 this morning 3. Hypertension; better controlled 4. Hyperlipidemia: Statins 5. CAD; details unknown. appears clinically stable 6. Diabetes, II 7. Protein calorie malnutrition 8. Encephalopathy with underlying dementia 9. MACARIO, hyperkalemia; worsening 10. Protein calorie malnutrition 11. Elevated troponin; EKG noted with ischemic changes. Recommendations Metoprolol for rate control Lovenox not ideal with renal failure; heparin gtt initiated IV Dig PRN Supportive care Prognosis poor; family planning to withdrawal care Justicifation of Admission Dx: Justifications for Admission: Justification of Admission Dx: Yes CHF: Cardiac Arrhythmias JEROMY ZAVALA MD 12/21/20 1151: CARDIO Progress Notes Assessment Assessment Patient seen and examined 12/20/2020. Agree with RECYCLER's assessment and plan. Atrial fibrillation/flutter rate controlled. Patient had to be intubated for worsening respiratory failure/Covid pneumonia Poor prognosis -family considering withdrawal of care ROSA CUELLO APRN Dec 20, 2020 10:30 JEROMY ZAVALA MD Dec 21, 2020 11:51
--- NOTE | 2020-12-20 11:23 | PDOC2 ---
CONSULT Date of Consult Date of Consult DATE: 12/20/20 TIME: 11:02 Reason for Consult Reason for Consult: MACARIO Identification/Chief Complaint Chief Complaint Unable to Obtain, Intubated,on MV Source Source: Chart review History of Present Illness Reason for Visit: History Obtained from Chart Review and Nursing 2/2 above Patient 70-year-old admitted on 12/11 at [facility]. He presented to the emergency room at outside hospital on December 05 with a chief complaint of multiple falls secondary to trouble with balance, been going on for several months. Family also noted he had decreased PO intake He has a History of DM- poorly controlled ,A1c> 14 at outside hospital. At the outside facility he was found to be Covid positive. He also had a questionable seizure activity at the OSH He was started on Remdesivir and steroids but noted to have increasing O2 requirement and was transferred to [facility] . He is not Covid vaccinated. . Due to worsening respiratory distress patient was moved to ICU and intubated . Currently he is Intubated, on Pressor support, elevated Creatinine Past Medical History Past Medical History COPD, emphysema, CAD, hyperlipidemia, sleep apnea, poorly controlled diabetes Family History Family History Unable to Obtain 2/2 Patient's above med condition Social History Social History [id number] smoking history. Social alcohol use no recreational drug use per Chart Records Current Medications Current Medications Current Medications Ondansetron HCl (Zofran) 4 mg PRN Q6HRS PRN IVP NAUSEA/VOMITING; Start 12/11/20 at 20:45 Calcium Carbonate/ Glycine (Tums) 500 mg PRN Q3HRS PRN PO UPSET STOMACH; Start 12/11/20 at 20:45 Info (Non-Icu Electrolyte Protocol) 1 ea PRN DAILY PRN MC SEE COMMENTS; Start 12/11/20 at 20:45 Oxycodone HCl (Roxicodone) 5 mg PRN Q3HRS PRN PO BREAKTHROUGH PAIN Last administered on 12/15/20at 08:31; Start 12/11/20 at 20:45 Oxycodone/ Acetaminophen (Percocet 5/325) 1 tab PRN Q4HRS PRN PO MILD PAIN, 1ST CHOICE; Start 12/11/20 at 20:45 Oxycodone/ Acetaminophen (Percocet 5/325) 2 tab PRN Q4HRS PRN PO MODERATE PAIN, SEVERE PAIN; Start 12/11/20 at 20:45 Acetaminophen (Tylenol) 650 mg PRN Q6HRS PRN PO Headaches, Temp > 101.5F Last administered on 12/18/20at 21:24; Start 12/11/20 at 20:45 Senna/Docusate Sodium (Senna Plus) 1 tab BID PO Last administered on 12/19/20at 22:07; Start 12/11/20 at 21:00 Heparin Sodium (Porcine) (Heparin Sodium) 5,000 unit Q12HR SQ Last administered on 12/13/20at 10:15; Start 12/11/20 at 21:00; Stop 12/13/20 at 15:05; Status DC Insulin Glargine (Lantus Syringe) 15 unit QHS SQ Last administered on at 20:57; Start 12/11/20 at 21:00; Stop 12/17/20 at 11:46; Status DC Insulin Human Lispro (HumaLOG) 0-7 UNITS TIDWMEALS SQ Last administered on 12/19/20at 17:53; Start 12/12/20 at 08:00; Stop 12/20/20 at 09:24; Status DC Dextrose (Dextrose 50%-Water Syringe) 12.5 gm PRN Q15MIN PRN IV SEE COMMENTS; Start 12/11/20 at 20:45 Remdesivir 100 mg/ Sodium Chloride 230 ml @ 460 mls/hr Q24H IV Last administered on 12/15/20at 17:33; Start 12/12/20 at 18:00; Stop 12/15/20 at 18:29; Status DC Piperacillin Sod/ Tazobactam Sod (Zosyn Per Pharmacy) 1 each PRN DAILY PRN MC SEE COMMENTS; Start 12/11/20 at 21:00 Piperacillin Sod/ Tazobactam Sod 2.25 gm/Sodium Chloride 50 ml @ 100 mls/hr Q6HRS IV Last administered on 12/13/20at 05:49; Start 12/12/20 at 00:00; Stop 12/13/20 at 09:02; Status DC Dexamethasone Sodium Phosphate (Decadron) 6 mg DAILY IVP Last administered on 12/20/20at 09:50; Start 12/12/20 at 12:00 Aspirin (Aspirin Chewable) 81 mg DAILYWBKFT PO Last administered on 12/19/20at 08:14; Start 12/12/20 at 12:30 Guaifenesin/ Codeine Phosphate (Robitussin Ac) 5 ml PRN Q6HRS PRN PO COUGH; Start 12/12/20 at 12:15 Multivitamins (Thera M Plus) 1 tab DAILY PO Last administered on 12/14/20at 08:21; Start 12/12/20 at 12:30; Stop 12/18/20 at 09:34; Status DC Doxycycline Hyclate 100 mg/ Dextrose 100 ml @ 50 mls/hr Q12HR IV Last administered on 12/19/20at 22:07; Start 12/12/20 at 13:00 Enoxaparin Sodium (Lovenox 40mg Syringe) 40 mg Q24H SQ ; Start 12/12/20 at 12:15; Status UNV Lactobacillus Rhamnosus (Culturelle) 1 cap BID PO Last administered on 12/19/20at 22:07; Start 12/13/20 at 21:00 Piperacillin Sod/ Tazobactam Sod 3.375 gm/Sodium Chloride 50 ml @ 100 mls/hr Q6HRS IV Last administered on 12/20/20at 05:27; Start 12/13/20 at 12:00 Digoxin (Lanoxin) 500 mcg 1X ONCE IV Last administered on 12/13/20at 14:30; Start 12/13/20 at 14:00; Stop 12/13/20 at 14:01; Status DC Sterile Water (WATER for RESP) 2,000 ml CONT PRN INH VIA VAPOTHERM DEVICE Last administered on 12/13/20at 15:08; Start 12/13/20 at 15:15 Heparin Sodium/ Dextrose 250 ml @ 10.104 mls/ hr CONT PRN IV PER PROTOCOL Last administered on 12/15/20at 02:52; Start 12/13/20 at 15:15; Stop 12/15/20 at 15:19; Status DC Heparin Sodium (Porcine) (Heparin Sodium) 2,100 unit PRN Q6HRS PRN IV FOR UFH LEVEL LESS THAN 0.2 Last administered on 12/15/20at 13:06; Start 12/13/20 at 15:15; Stop 12/15/20 at 15:19; Status DC Diltiazem HCl 125 mg/Sodium Chloride 125 ml @ 5 mls/hr CONT PRN IV PER PROTOCOL Last administered on 12/15/20at 06:27; Start 12/13/20 at 15:15; Stop 12/15/20 at 15:19; Status DC Olanzapine (ZyPREXA ZYDIS) 5 mg PRN BID PRN PO ANXIETY / AGITATION Last adm inistered on 12/15/20at 08:31; Start 12/15/20 at 08:30 Olanzapine (ZyPREXA IM) 10 mg 1X ONCE IM Last administered on 12/15/20at 09:00; Start 12/15/20 at 09:00; Stop 12/15/20 at 09:01; Status DC Metoprolol Tartrate (Lopressor Vial) 5 mg Q6HRS IVP ; Start 12/15/20 at 15:30; Stop 12/15/20 at 15:58; Status DC Enoxaparin Sodium (Lovenox Per Pharmacy Treatment Dosing) 1 each PRN DAILY PRN MC SEE COMMENTS; Start 12/15/20 at 15:30 Enoxaparin Sodium (Lovenox 80mg Syringe) 80 mg Q12H SQ Last administered on 12/20/20at 06:26; Start 12/15/20 at 18:00; Stop 12/20/20 at 08:34; Status DC Metoprolol Tartrate (Lopressor Vial) 5 mg Q6H IVP Last administered on 12/19/20at 23:44; Start 12/15/20 at 18:00 Lorazepam (Ativan Inj) 1 mg PRN Q4HRS PRN IVP ANXIETY / AGITATION; Start 12/17/20 at 11:45 Amino Acids/ Electrolytes/ Dextrose 1,000 ml @ 80 mls/hr [id number] IV Last administered on 12/20/20at 03:44; Start 12/17/20 at 11:45 Insulin Glargine (Lantus Syringe) 22 unit QHS SQ Last administered on 12/17/20at 20:18; Start 12/17/20 at 21:00; Stop 12/18/20 at 07:04; Status DC Propofol 100 ml @ 2.289 mls/ hr CONT PRN IV PER PROTOCOL; Start 12/18/20 at 06:00 Fentanyl Citrate 30 ml @ 0 mls/hr CONT PRN PRN IV PER PROTOCOL Last administered on 12/20/20at 03:10; Start 12/18/20 at 06:00 Naloxone HCl (Narcan) 0.4 mg PRN Q2MIN PRN IV SEE INSTRUCTIONS; Start 12/18/20 at 06:00 Sodium Chloride 1,000 ml @ 25 mls/hr Q24H IV Last administered on 12/19/20at 22:09; Start 12/18/20 at 06:00 Midazolam HCl 100 ml @ 1 mls/hr CONT PRN IV SEE PROTOCOL Last administered on 12/20/20at 02:03; Start 12/18/20 at 06:45 Phenylephrine HCl 50 mg/Sodium Chloride 255 ml @ 11.674 mls/ hr CONT PRN IV PER PROTOCOL Last administered on 12/20/20at 07:41; Start 12/18/20 at 06:45 Insulin Glargine (Lantus Syringe) 30 unit QHS SQ Last administered on 12/18/20at 21:30; Start 12/18/20 at 21:00 Norepinephrine Bitartrate 8 mg/ Dextrose 258 ml @ 14.764 mls/ hr CONT PRN IV PER PROTOCOL Last administered on 12/20/20at 04:00; Start 12/18/20 at 07:15 Dexmedetomidine HCl 400 mcg/ Sodium Chloride 100 ml @ 3.815 mls/ hr CONT PRN IV PER PROTOCOL Last administered on 12/20/20at 02:04; Start 12/18/20 at 07:15 Vecuronium [place]on (Norcuron Bolus) 10 mg STK-MED ONCE IV ; Start 12/18/20 at 07:24; Stop 12/18/20 at 07:24; Status DC Vecuronium [place]on (Norcuron Bolus) 6 mg PRN Q4HRS PRN IV VENTILATOR COMPLIANCE Last administered on 12/18/20at 07:37; Start 12/18/20 at 07:30 Etomidate (Amidate) 20 mg 1X ONCE IV Last administered on 12/18/20at 07:43; Start 12/18/20 at 07:45; Stop 12/18/20 at 07:46; Status DC Succinylcholine Chloride (Anectine) 100 mg 1X ONCE IV Last administered on 12/18/20at 07:43; Start 12/18/20 at 07:45; Stop 12/18/20 at 07:46; Status DC Multivitamins/ Minerals Therapeutic (Centrum Multivit-Mineral Liq) 5 ml DAILY PEG Last administered on 12/19/20at 08:14; Start 12/18/20 at 10:00 Pantoprazole Sodium (PROTONIX VIAL for IV PUSH) 40 mg 1X ONCE IVP Last administered on 12/18/20at 16:50; Start 12/18/20 at 15:30; Stop 12/18/20 at 15:31; Status DC Pantoprazole Sodium (Protonix) 40 mg DAILYAC PO ; Start 12/20/20 at 07:30; Stop 12/20/20 at 09:24; Status DC Sodium Chloride 500 ml @ 500 mls/hr 1X ONCE IV Last administered on 12/20/20at 03:40; Start 12/20/20 at 02:45; Stop 12/20/20 at 03:44; Status DC Amiodarone HCl 150 mg/Dextrose 103 ml @ 618 mls/hr 1X ONCE IV Last administered on 12/20/20at 03:30; Start 12/20/20 at 03:00; Stop 12/20/20 at 03:09; Status DC Metoprolol Tartrate (Lopressor Vial) 5 mg 1X ONCE IVP Last administered on 12/20/20at 05:26; Start 12/20/20 at 04:30; Stop 12/20/20 at 04:31; Status DC Acetaminophen (Tylenol Supp) 650 mg PRN Q6HRS PRN GA MILD PAIN / TEMP > 100.3'F Last administered on 12/20/20at 07:23; Start 12/20/20 at 06:45 Digoxin (Lanoxin) 500 mcg 1X ONCE IV Last administered on 12/20/20at 07:28; Start 12/20/20 at 07:30; Stop 12/20/20 at 07:31; Status DC Heparin Sodium/ Dextrose 250 ml @ 9.636 mls/ hr CONT PRN IV PER PROTOCOL Last administered on 12/20/20at 09:12; Start 12/20/20 at 08:45 Heparin Sodium (Porcine) (Heparin Sodium) 2,000 unit PRN Q6HRS PRN IV FOR UFH LEVEL LESS THAN 0.2; Start 12/20/20 at 08:45 Vasopressin 20 unit/Dextrose 101 ml @ 12 mls/hr CONT PRN IV SEE I/O RECORD Last administered on 12/20/20at 09:13; Start 12/20/20 at 09:00 Pantoprazole Sodium (PROTONIX VIAL for IV PUSH) 40 mg DAILYAC IVP Last administered on 12/20/20at 09:50; Start 12/20/20 at 10:00 Insulin Human Lispro (HumaLOG) 0-7 UNITS Q6HRS SQ ; Start 12/20/20 at 12:00 Active Scripts Active Reported Gabapentin 600 Mg Tablet 600 Mg PO BID Aspirin 81 Mg Tab.chew 1 Tab PO DAILY Pravastatin Sodium 20 Mg Tablet 1 Tab PO QHS Escitalopram Oxalate 10 Mg Tablet 1 Tab PO DAILY Cetirizine Hcl 10 Mg Tablet 1 Tab PO DAILY Lisinopril 20 Mg Tablet 1 Tab PO DAILY Bupropion Xl (Bupropion Hcl) 150 Mg Tab.er.24h 1 Tab PO BID Nexium Capsule (Esomeprazole Magnesium) 40 Mg Capsule. 1 Cap PO DAILY Lantus Solostar (Insulin Glargine,Hum.rec.anlog) 100 Unit/1 Ml Insuln.pen 30 Unit SQ QHS Allergies Allergies: Coded Allergies: No Known Drug Allergies (Unverified , 12/18/20) ROS Review of System Unable to Obtain 2/2 Intubated/MV Physical Exam Physical Exam General Intubated, on MV HEEN Intubated Neck supple Lungs Decereased at bases CV S1S2 Abdo Obese, soft Neuro Unable toassess Psych Unable to assess Derm No Rash Vincent + Vital Signs Vital Signs Date Time Temp Pulse Resp B/P (MAP) Pulse Ox O2 Delivery O2 Flow Rate FiO2 12/20/20 08:25 99 Ventilator 12/20/20 07:28 167 97/56 12/20/20 06:00 102.3 102.3 12/20/20 03:40 24 Assessment & Plan MACARIO- ATN , HypoTensive , worsening renal function, K elevated .Non Oliguric. Decline in UOP today per Nursing.Not a candidate for [employer] due to Very Poor prog nosis with No chances of recovery 2/[address] Staley . Awaiting Family HyperKalemia 2/2 Macario Hypotension on 2 Pressors Acute hypoxemic respiratory failure secondary to COVID-19 viral pneumonia. worsening intubated 12/18 COVID-19 viral pneumonia- received remdesivir. Currently on dexamethasone Type 2 diabetes. Severe protein malnutrition Acute toxic encephalopathy, present upon admission New Tana alvarez Septic shock Patient Follow cardiology input Monitor labs Discussed with daughter, family wishes to withdraw care I concur chances of recovery close to 0 updated 12/19 Continue assist-control ventilation 100%, 12 of PEEP ABG and labs noted Follow cardiology input for A. kim Patient received remdesivir Continue dexamethasone Labs Labs Laboratory Tests Test 12/18/20 17:32 12/18/20 21:32 12/19/20 00:02 12/19/20 08:00 Glucose (Fingerstick) 390 mg/dL (70-99) 340 mg/dL (70-99) 330 mg/dL (70-99) O2 Saturation 98 % (92-99) Arterial Blood pH 7.35 (7.35-7.45) Arterial Blood pCO2 at Patient Temp 46 mmHg (35-46) Arterial Blood pO2 at Patient Temp 126 mmHg (65-108) Arterial Blood HCO3 25 mmol/L (21-28) Arterial Blood Base Excess -1 mmol/L (-3-3) FiO2 100 Test 12/19/20 08:23 12/19/20 13:17 12/19/20 17:52 12/19/20 22:58 Glucose (Fingerstick) 247 mg/dL (70-99) 157 mg/dL (70-99) 158 mg/dL (70-99) 100 mg/dL (70-99) Test 12/20/20 00:41 12/20/20 01:45 12/20/20 08:25 12/20/20 08:45 Glucose (Fingerstick) 112 mg/dL (70-99) White Blood Count 19.1 x10^3/uL (4.0-11.0) Red Blood Count 4.49 x10^6/uL (4.30-5.70) Hemoglobin 13.0 g/dL (13.0-17.5) Hematocrit 41.2 % (39.0-53.0) Mean Corpuscular Volume 92 fL (79-100) Mean Corpuscular Hemoglobin 29 pg (25-35) Mean Corpuscular Hemoglobin Concent 32 g/dL (31-37) Red Cell Distribution Width 15.1 % (11.5-14.5) Platelet Count 244 x10^3/uL (140-400) Neutrophils (%) (Auto) 94 % (31-73) Lymphocytes (%) (Auto) 2 % (24-48) Monocytes (%) (Auto) 3 % (0-9) Eosinophils (%) (Auto) 0 % (0-3) Basophils (%) (Auto) 0 % (0-3) Neutrophils # (Auto) 18.0 x10^3/uL (1.8-7.7) Lymphocytes # (Auto) 0.5 x10^3/uL (1.0-4.8) Monocytes # (Auto) 0.6 x10^3/uL (0.0-1.1) Eosinophils # (Auto) 0.0 x10^3/uL (0.0-0.7) Basophils # (Auto) 0.0 x10^3/uL (0.0-0.2) Sodium Level 145 mmol/L (136-145) 143 mmol/L (136-145) Potassium Level 6.2 mmol/L (3.5-5.1) 6.8 mmol/L (3.5-5.1) Chloride Level 110 mmol/L (98-107) 108 mmol/L (98-107) Carbon Dioxide Level 25 mmol/L (21-32) 25 mmol/L (21-32) Anion Gap 10 (6-14) 10 (6-14) Blood Urea Nitrogen 88 mg/dL (8-26) 103 mg/dL (8-26) Creatinine 3.1 mg/dL (0.7-1.3) 4.0 mg/dL (0.7-1.3) Estimated GFR (Cockcroft-Gault) 19.9 14.8 BUN/Creatinine Ratio 28 (6-20) Glucose Level 126 mg/dL (70-99) 190 mg/dL (70-99) Calcium Level 7.7 mg/dL (8.5-10.1) 7.3 mg/dL (8.5-10.1) Magnesium Level 2.5 mg/dL (1.8-2.4) Total Bilirubin 0.6 mg/dL (0.2-1.0) Aspartate Amino Transf (AST/SGOT) 29 U/L (15-37) Alanine Aminotransferase (ALT/SGPT) 12 U/L (16-63) Alkaline Phosphatase 151 U/L (46-116) Total Protein 6.0 g/dL (6.4-8.2) Albumin 1.4 g/dL (3.4-5.0) Albumin/Globulin Ratio 0.3 (1.0-1.7) O2 Saturation 97 % (92-99) Arterial Blood pH 7.10 (7.35-7.45) Arterial Blood pH (Temp corrected) 7.04 Arterial Blood pCO2 at Patient Temp 67 mmHg (35-46) Arterial Blood pCO2 (Temp correct) 83 mmHg Arterial Blood pO2 at Patient Temp 110 mmHg (65-108) Arterial Blood pO2 (Temp corrected) 144 mmHg Arterial Blood HCO3 20 mmol/L (21-28) Arterial Blood Base Excess -10 mmol/L (-3-3) FiO2 100 Troponin I High Sensitivity 529 ng/L (4-75) Procalcitonin 35.96 ng/mL (0.00-0.10) Laboratory Tests Test 12/19/20 13:17 12/19/20 17:52 12/19/20 22:58 12/20/20 00:41 Glucose (Fingerstick) 157 mg/dL (70-99) 158 mg/dL (70-99) 100 mg/dL (70-99) 112 mg/dL (70-99) Test 12/20/20 01:45 12/20/20 08:25 12/20/20 08:45 White Blood Count 19.1 x10^3/uL (4.0-11.0) Red Blood Count 4.49 x10^6/uL (4.30-5.70) Hemoglobin 13.0 g/dL (13.0-17.5) Hematocrit 41.2 % (39.0-53.0) Mean Corpuscular Volume 92 fL (79-100) Mean Corpuscular Hemoglobin 29 pg (25-35) Mean Corpuscular Hemoglobin Concent 32 g/dL (31-37) Red Cell Distribution Width 15.1 % (11.5-14.5) Platelet Count 244 x10^3/uL (140-400) Neutrophils (%) (Auto) 94 % (31-73) Lymphocytes (%) (Auto) 2 % (24-48) Monocytes (%) (Auto) 3 % (0-9) Eosinophils (%) (Auto) 0 % (0-3) Basophils (%) (Auto) 0 % (0-3) Neutrophils # (Auto) 18.0 x10^3/uL (1.8-7.7) Lymphocytes # (Auto) 0.5 x10^3/uL (1.0-4.8) Monocytes # (Auto) 0.6 x10^3/uL (0.0-1.1) Eosinophils # (Auto) 0.0 x10^3/uL (0.0-0.7) Basophils # (Auto) 0.0 x10^3/uL (0.0-0.2) Sodium Level 145 mmol/L (136-145) 143 mmol/L (136-145) Potassium Level 6.2 mmol/L (3.5-5.1) 6.8 mmol/L (3.5-5.1) Chloride Level 110 mmol/L (98-107) 108 mmol/L (98-107) Carbon Dioxide Level 25 mmol/L (21-32) 25 mmol/L (21-32) Anion Gap 10 (6-14) 10 (6-14) Blood Urea Nitrogen 88 mg/dL (8-26) 103 mg/dL (8-26) Creatinine 3.1 mg/dL (0.7-1.3) 4.0 mg/dL (0.7-1.3) Estimated GFR (Cockcroft-Gault) 19.9 14.8 BUN/Creatinine Ratio 28 (6-20) Glucose Level 126 mg/dL (70-99) 190 mg/dL (70-99) Calcium Level 7.7 mg/dL (8.5-10.1) 7.3 mg/dL (8.5-10.1) Magnesium Level 2.5 mg/dL (1.8-2.4) Total Bilirubin 0.6 mg/dL (0.2-1.0) Aspartate Amino Transf (AST/SGOT) 29 U/L (15-37) Alanine Aminotransferase (ALT/SGPT) 12 U/L (16-63) Alkaline Phosphatase 151 U/L (46-116) Total Protein 6.0 g/dL (6.4-8.2) Albumin 1.4 g/dL (3.4-5.0) Albumin/Globulin Ratio 0.3 (1.0-1.7) O2 Saturation 97 % (92-99) Arterial Blood pH 7.10 (7.35-7.45) Arterial Blood pH (Temp corrected) 7.04 Arterial Blood pCO2 at Patient Temp 67 mmHg (35-46) Arterial Blood pCO2 (Temp correct) 83 mmHg Arterial Blood pO2 at Patient Temp 110 mmHg (65-108) Arterial Blood pO2 (Temp corrected) 144 mmHg Arterial Blood HCO3 20 mmol/L (21-28) Arterial Blood Base Excess -10 mmol/L (-3-3) FiO2 100 Troponin I High Sensitivity 529 ng/L (4-75) Procalcitonin 35.96 ng/mL (0.00-0.10) Review All relevant outside records, renal labs, imaging studies, telemetry/EKG's were reviewed. Images Images 12/18/2020 6:33 AM XR ABDOMEN 1V, XR CHEST 1V Indication: Reason: OGT placement / Spl. Instructions: / History: . COMPARISON: December 15, 2020 Impression: Endotracheal tube terminates approximately 5.7 cm above the carmina. Nasogastric tube extends below the diaphragm and terminates in the gastric fundus. Cardiac silhouette is unchanged. Diffuse bilateral infiltrates are unchanged. Coarse reticular markings bilaterally are unchanged and suggest underlying fibrosis. No appreciable pleural effusion or pneumothorax. Visualized upper abdomen demonstrates a nondilated, nonobstructed bowel gas pattern. Electronically signed by: Jakub Melendez MD (12/18/2020 7:06 AM) [id number] RIZWANA SANDHU MD Dec 20, 2020 11:23
[2020-12-20] MEDS ORDERED: INSULIN LISPRO 300 UNITS/3 ML VIAL. SQ SCH (12:00)
[2020-12-20] MEDS ORDERED: MORPHINE SULFATE 2 MG/ML INJ. IVP PRN (12:15)
[2020-12-20] MEDS ORDERED: HALOPERIDOL LACTATE 5 MG/ML VIAL. IVP PRN (12:15)
[2020-12-20] MEDS ORDERED: MORPHINE SULFATE 4 MG/ML INJ. IVP PRN (12:15)
--- NOTE | 2020-12-20 12:47 | CONS ---
DATE OF CONSULTATION: 12/20/2020 REFERRING PHYSICIAN: Callie Snyder. Reason for consultation: Fever in patient with COVID-19 infection HISTORY OF PRESENT ILLNESS: History obtained from medical staff. Patient intubated in ICU. No family at bedside. A 70-year-old male admitted to ICU where he presented with multiple falls secondary trouble with balance. The patient was found to have COVID positive at outside facility. The patient was requiring O2, admitted to ICU, underwent intubation 12/18. The patient had fever for the last couple of days the patient was started on doxycyclineand Zosyn. White count today is 19.3, potassium of 6.8, creatinine of 4.0. ID consultation has been requested for antibiotic management. PAST MEDICAL HISTORY: COPD, coronary artery disease, hyperlipidemia, sleep apnea, diabetes. ALLERGIES: No known drug allergies. FAMILY HISTORY: As per HPI. SOCIAL HISTORY: Unable to obtain. REVIEW OF SYSTEMS: Unable to obtain. Did discuss with nursing staff. PHYSICAL EXAMINATION: VITAL SIGNS: Temperature 102.3, pulse 167, blood pressure 97/56 on pressors, O2 is 110 on FiO2 100%, pH of 7.10. HEENT: Normocephalic, atraumatic. ETT, OGT. Present, NECK: Supple. LUNGS: Coarse breath sounds. HEART: Irregularly irregular. ABDOMEN: Nondistended, soft. GENITOURINARY: Vincent in place. EXTREMITIES: No edema or cyanosis. Mild mottling. CENTRAL NERVOUS SYSTEM: Unable to assess. PSYCHIATRIC: Unable to assess. LABORATORY DATA: WBC 19.1, hemoglobin 13.0, platelets 244, potassium 6.8. Sodium 143, bicarbonate 25, creatinine 4, BUN 103. Troponins 529. IMAGING: Chest x-ray reviewed. Abdominal KUB reviewed. IMPRESSION: Patient with COVID-19 pneumonia complicated by acute hypoxic respiratory failure status post intubation 1. Fever. 2. Acute hypoxic respiratory failure, status post intubation 12/18. 3. COVID-19 pneumonia. 4. Type 2 diabetes. 5. Renal insufficiency. 6. Hypokalemia. 7. Encephalopathy, likely metabolic. 8. Atrial fibrillation with rapid ventricular response. 9. Hypotension, on pressors. 10. Coronary artery disease. RECOMMENDATIONS: 1. Continue current antibiotics. 2. Status post remdesivir, on steroids. 3. Monitor labs and cultures. 4. Continue supportive care. 5. Per team, family is deciding to transition to comfort measures soon. 6. Critically ill. 7. Prognosis very poor. Thank you for allowing me to participate in this patient's care. If you have any questions, do not hesitate to contact me. Discussed with nursing staff. WILIAN DR: Kerri TID: [id number] NAOMI
--- NOTE | 2020-12-20 13:51 | NUR ---
Expiration/Discharge Note: [facility]RA [facility] ICU Patient pounced at 1231. Family at bedside. Dr. Leigh and Dr. Staley notified. Body to be release [id number] at [address] [facility], [place] [address].
--- NOTE | 2020-12-20 16:23 | PDOC ---
[employer] PROGRESS NOTE Date of Service DOS: DATE: 12/20/20 TIME: 16:21 Chief Complaint Chief Complaint acute Covid-19 respiratory failure Acute hypoxic respiratory failure with Bilateral infiltrates, ARDS acute metabolic encephalopathy sepsis, malnutrition COPD - emphysema CAD Hyperlipidemia Sleep apnea Poorly controlled diabetes Atrial fibrillation with rapid ventricular response - History of Present Illness History of Present Illness Mr Hamilton is a 70-year-old male w/ PMHx COPD, CAD, HLD, ELLIOT, DM2 (a1c 14) admitted for trouble with balance on 12/05/2020. Was found to be COVID positive, he was transferred to [facility]. 12/12: On 100% nonrebreather. Pleasantly confused. He appears quite ill. Went into rapid afib. Cardiology and pulmonology consulted. 12/13: Currently on 100% nonrebreather. Pleasantly confused. He keeps pulling off his nonrebreather and desats to 60. 12/14: Had to change him over to Vapotherm 40 L 100% FiO2 currently satting 95% (he kept pulling his mask off of the nonrebreather). He still remains quite ill 12/15: Febrile. Continues to pull off his oxygen. Pulling on his IVs overnight. Took off BIPAP. Responsive to IM zyprexa. Due to multiple blood draws and loss of IV access, requires heparin GTT and cardizem will order PICC 12/17: 12/07, start CLINIMIX IV nutrition PRN IV ativan BP good on PRN increase Lantus insulin dose on 65% bipap, discussed with RT, try to wean to vapotherm 12/18: Due to worsening respiratory distress patient was moved to ICU and intubated overnight. Chest x-ray, KUB pending. Afebrile. Still with significant hyperglycemia likely secondary to Clinimix, will adjust insulin. S/P remdesivir; continue Decadron to complete 10-day course. Continue empiric antibiotics and supportive care. 30 minutes critical care time spent reviewing charts, reviewing labs, reviewing imaging, discussion with Dr. Mason, and discussion with RN. 12/19 Patient evaluated and examined at bedside. Remains intubated and sedated. Still requiring vasopressors. Remains on Decadron and antibiotics. Very poor prognosis. Patient family considering withdrawal of care. 30 minutes critical care time spent reviewing charts, reviewing labs, reviewing imaging, and discussion with RN 12/20 Patient evaluated and examined at bedside. Remains intubated and sedated no major clinical changes or improvement. Very poor prognosis. Discussed on the phone with the patient's today for about 30 minutes and she has elected to transition patient to comfort measures only. Would request that we continue cur rent measures until she is able to arrive at the hospital around lunchtime. 30 minutes critical care time spent reviewing charts, reviewing labs, reviewing imaging, and discussion with RN Vitals/I&O Vitals/I&O: Vital Signs Date Time Temp Pulse Resp B/P (MAP) Pulse Ox O2 Delivery O2 Flow Rate FiO2 12/20/20 13:00 13 90 Room Air 15.0 12/20/20 12:00 97.0 86 98/54 97.0 I & O 12/19/20 12/19/20 12/20/20 15:00 23:00 07:00 Output Total 725 ml 140 ml 770 ml Balance -725 ml -140 ml -770 ml Physical Exam Physical Exam: confused, in mittens General: mild distress, Other (Confused) Heart: Other (Tachycardic and irregularly irregular) Abdomen: Soft Extremities: No clubbing, No edema Skin: No rashes Labs Labs: Laboratory Tests Test 12/19/20 17:52 12/19/20 22:58 12/20/20 00:41 12/20/20 01:45 Glucose (Fingerstick) 158 mg/dL (70-99) 100 mg/dL (70-99) 112 mg/dL (70-99) White Blood Count 19.1 x10^3/uL (4.0-11.0) Red Blood Count 4.49 x10^6/uL (4.30-5.70) Hemoglobin 13.0 g/dL (13.0-17.5) Hematocrit 41.2 % (39.0-53.0) Mean Corpuscular Volume 92 fL (79-100) Mean Corpuscular Hemoglobin 29 pg (25-35) Mean Corpuscular Hemoglobin Concent 32 g/dL (31-37) Red Cell Distribution Width 15.1 % (11.5-14.5) Platelet Count 244 x10^3/uL (140-400) Neutrophils (%) (Auto) 94 % (31-73) Lymphocytes (%) (Auto) 2 % (24-48) Monocytes (%) (Auto) 3 % (0-9) Eosinophils (%) (Auto) 0 % (0-3) Basophils (%) (Auto) 0 % (0-3) Neutrophils # (Auto) 18.0 x10^3/uL (1.8-7.7) Lymphocytes # (Auto) 0.5 x10^3/uL (1.0-4.8) Monocytes # (Auto) 0.6 x10^3/uL (0.0-1.1) Eosinophils # (Auto) 0.0 x10^3/uL (0.0-0.7) Basophils # (Auto) 0.0 x10^3/uL (0.0-0.2) Sodium Level 145 mmol/L (136-145) Potassium Level 6.2 mmol/L (3.5-5.1) Chloride Level 110 mmol/L (98-107) Carbon Dioxide Level 25 mmol/L (21-32) Anion Gap 10 (6-14) Blood Urea Nitrogen 88 mg/dL (8-26) Creatinine 3.1 mg/dL (0.7-1.3) Estimated GFR (Cockcroft-Gault) 19.9 BUN/Creatinine Ratio 28 (6-20) Glucose Level 126 mg/dL (70-99) Calcium Level 7.7 mg/dL (8.5-10.1) Magnesium Level 2.5 mg/dL (1.8-2.4) Total Bilirubin 0.6 mg/dL (0.2-1.0) Aspartate Amino Transf (AST/SGOT) 29 U/L (15-37) Alanine Aminotransferase (ALT/SGPT) 12 U/L (16-63) Alkaline Phosphatase 151 U/L (46-116) Total Protein 6.0 g/dL (6.4-8.2) Albumin 1.4 g/dL (3.4-5.0) Albumin/Globulin Ratio 0.3 (1.0-1.7) Test 12/20/20 08:25 12/20/20 08:45 O2 Saturation 97 % (92-99) Arterial Blood pH 7.10 (7.35-7.45) Arterial Blood pH (Temp corrected) 7.04 Arterial Blood pCO2 at Patient Temp 67 mmHg (35-46) Arterial Blood pCO2 (Temp correct) 83 mmHg Arterial Blood pO2 at Patient Temp 110 mmHg (65-108) Arterial Blood pO2 (Temp corrected) 144 mmHg Arterial Blood HCO3 20 mmol/L (21-28) Arterial Blood Base Excess -10 mmol/L (-3-3) FiO2 100 Sodium Level 143 mmol/L (136-145) Potassium Level 6.8 mmol/L (3.5-5.1) Chloride Level 108 mmol/L (98-107) Carbon Dioxide Level 25 mmol/L (21-32) Anion Gap 10 (6-14) Blood Urea Nitrogen 103 mg/dL (8-26) Creatinine 4.0 mg/dL (0.7-1.3) Estimated GFR (Cockcroft-Gault) 14.8 Glucose Level 190 mg/dL (70-99) Calcium Level 7.3 mg/dL (8.5-10.1) Troponin I High Sensitivity 529 ng/L (4-75) Procalcitonin 35.96 ng/mL (0.00-0.10) Comment Review of Relevant I have reviewed the following items tina (where applicable) has been applied. Medications: Current Medications Medications (Trade) Dose Ordered Sig/Vandana Route PRN Reason Start Time Stop Time Status Last Admin Dose Admin Sodium Chloride 500 ml @ 500 mls/hr 1X ONCE IV 12/20/20 02:45 12/20/20 03:44 DC 12/20/20 03:40 Amiodarone HCl 150 mg/Dextrose 103 ml @ 618 mls/hr 1X ONCE IV 12/20/20 03:00 12/20/20 03:09 DC 12/20/20 03:30 Metoprolol Tartrate (Lopressor Vial) 5 mg 1X ONCE IVP 12/20/20 04:30 12/20/20 04:31 DC 12/20/20 05:26 Acetaminophen (Tylenol Supp) 650 mg PRN Q6HRS PRN MD MILD PAIN / TEMP > 100.3'F 12/20/20 06:45 12/20/20 07:23 Digoxin (Lanoxin) 500 mcg 1X ONCE IV 12/20/20 07:30 12/20/20 07:31 DC 12/20/20 07:28 Heparin Sodium/ Dextrose 250 ml @ 9.636 mls/ hr CONT PRN IV PER PROTOCOL 12/20/20 08:45 12/20/20 09:12 Vasopressin 20 unit/Dextrose 101 ml @ 12 mls/hr CONT PRN IV SEE I/O RECORD 12/20/20 09:00 12/20/20 09:13 Pantoprazole Sodium (PROTONIX VIAL for IV PUSH) 40 mg DAILYAC IVP 12/20/20 10:00 12/20/20 09:50 Morphine Sulfate (Morphine Sulfate) 4 mg PRN Q2HR PRN IVP PAIN OR DYSPNEA,1st CHOICE 12/20/20 12:15 12/20/20 12:30 Lorazepam (Ativan Inj) 2 mg PRN Q2HRS PRN IVP ANXIETY / AGITATION 12/20/20 12:15 12/20/20 12:29 Justifications for Admission Other Justification BRITTNY MATTHEW MD Dec 20, 2020 16:23
--- NOTE | 2020-12-20 16:27 | PDOC3 ---
Discharge Summary Visit Information Date of Admission: Dec 11, 2020 Date of Discharge: Dec 20, 2020 Admitting Diagnosis: Covid Pneumonia Final Diagnosis Same Brief Hospital Course Allergies Allergies Coded Allergies Type Severity Reaction Last Updated Verified No Known Drug Allergies 12/18/20 No Vital Signs Vital Signs Date Time Temp Pulse Resp B/P (MAP) Pulse Ox O2 Delivery O2 Flow Rate FiO2 12/20/20 13:00 13 90 Room Air 15.0 12/20/20 12:00 97.0 86 98/54 97.0 Lab Results Laboratory Tests Test 12/18/20 17:32 12/18/20 21:32 12/19/20 00:02 12/19/20 08:00 Glucose (Fingerstick) 390 mg/dL (70-99) 340 mg/dL (70-99) 330 mg/dL (70-99) O2 Saturation 98 % (92-99) Arterial Blood pH 7.35 (7.35-7.45) Arterial Blood pCO2 at Patient Temp 46 mmHg (35-46) Arterial Blood pO2 at Patient Temp 126 mmHg (65-108) Arterial Blood HCO3 25 mmol/L (21-28) Arterial Blood Base Excess -1 mmol/L (-3-3) FiO2 100 Test 12/19/20 08:23 12/19/20 13:17 12/19/20 17:52 12/19/20 22:58 Glucose (Fingerstick) 247 mg/dL (70-99) 157 mg/dL (70-99) 158 mg/dL (70-99) 100 mg/dL (70-99) Test 12/20/20 00:41 12/20/20 01:45 12/20/20 08:25 12/20/20 08:45 Glucose (Fingerstick) 112 mg/dL (70-99) White Blood Count 19.1 x10^3/uL (4.0-11.0) Red Blood Count 4.49 x10^6/uL (4.30-5.70) Hemoglobin 13.0 g/dL (13.0-17.5) Hematocrit 41.2 % (39.0-53.0) Mean Corpuscular Volume 92 fL (79-100) Mean Corpuscular Hemoglobin 29 pg (25-35) Mean Corpuscular Hemoglobin Concent 32 g/dL (31-37) Red Cell Distribution Width 15.1 % (11.5-14.5) Platelet Count 244 x10^3/uL (140-400) Neutrophils (%) (Auto) 94 % (31-73) Lymphocytes (%) (Auto) 2 % (24-48) Monocytes (%) (Auto) 3 % (0-9) Eosinophils (%) (Auto) 0 % (0-3) Basophils (%) (Auto) 0 % (0-3) Neutrophils # (Auto) 18.0 x10^3/uL (1.8-7.7) Lymphocytes # (Auto) 0.5 x10^3/uL (1.0-4.8) Monocytes # (Auto) 0.6 x10^3/uL (0.0-1.1) Eosinophils # (Auto) 0.0 x10^3/uL (0.0-0.7) Basophils # (Auto) 0.0 x10^3/uL (0.0-0.2) Sodium Level 145 mmol/L (136-145) 143 mmol/L (136-145) Potassium Level 6.2 mmol/L (3.5-5.1) 6.8 mmol/L (3.5-5.1) Chloride Level 110 mmol/L (98-107) 108 mmol/L (98-107) Carbon Dioxide Level 25 mmol/L (21-32) 25 mmol/L (21-32) Anion Gap 10 (6-14) 10 (6-14) Blood Urea Nitrogen 88 mg/dL (8-26) 103 mg/dL (8-26) Creatinine 3.1 mg/dL (0.7-1.3) 4.0 mg/dL (0.7-1.3) Estimated GFR (Cockcroft-Gault) 19.9 14.8 BUN/Creatinine Ratio 28 (6-20) Glucose Level 126 mg/dL (70-99) 190 mg/dL (70-99) Calcium Level 7.7 mg/dL (8.5-10.1) 7.3 mg/dL (8.5-10.1) Magnesium Level 2.5 mg/dL (1.8-2.4) Total Bilirubin 0.6 mg/dL (0.2-1.0) Aspartate Amino Transf (AST/SGOT) 29 U/L (15-37) Alanine Aminotransferase (ALT/SGPT) 12 U/L (16-63) Alkaline Phosphatase 151 U/L (46-116) Total Protein 6.0 g/dL (6.4-8.2) Albumin 1.4 g/dL (3.4-5.0) Albumin/Globulin Ratio 0.3 (1.0-1.7) O2 Saturation 97 % (92-99) Arterial Blood pH 7.10 (7.35-7.45) Arterial Blood pH (Temp corrected) 7.04 Arterial Blood pCO2 at Patient Temp 67 mmHg (35-46) Arterial Blood pCO2 (Temp correct) 83 mmHg Arterial Blood pO2 at Patient Temp 110 mmHg (65-108) Arterial Blood pO2 (Temp corrected) 144 mmHg Arterial Blood HCO3 20 mmol/L (21-28) Arterial Blood Base Excess -10 mmol/L (-3-3) FiO2 100 Troponin I High Sensitivity 529 ng/L (4-75) Procalcitonin 35.96 ng/mL (0.00-0.10) Laboratory Tests Test 12/19/20 17:52 12/19/20 22:58 12/20/20 00:41 12/20/20 01:45 Glucose (Fingerstick) 158 mg/dL (70-99) 100 mg/dL (70-99) 112 mg/dL (70-99) White Blood Count 19.1 x10^3/uL (4.0-11.0) Red Blood Count 4.49 x10^6/uL (4.30-5.70) Hemoglobin 13.0 g/dL (13.0-17.5) Hematocrit 41.2 % (39.0-53.0) Mean Corpuscular Volume 92 fL (79-100) Mean Corpuscular Hemoglobin 29 pg (25-35) Mean Corpuscular Hemoglobin Concent 32 g/dL (31-37) Red Cell Distribution Width 15.1 % (11.5-14.5) Platelet Count 244 x10^3/uL (140-400) Neutrophils (%) (Auto) 94 % (31-73) Lymphocytes (%) (Auto) 2 % (24-48) Monocytes (%) (Auto) 3 % (0-9) Eosinophils (%) (Auto) 0 % (0-3) Basophils (%) (Auto) 0 % (0-3) Neutrophils # (Auto) 18.0 x10^3/uL (1.8-7.7) Lymphocytes # (Auto) 0.5 x10^3/uL (1.0-4.8) Monocytes # (Auto) 0.6 x10^3/uL (0.0-1.1) Eosinophils # (Auto) 0.0 x10^3/uL (0.0-0.7) Basophils # (Auto) 0.0 x10^3/uL (0.0-0.2) Sodium Level 145 mmol/L (136-145) Potassium Level 6.2 mmol/L (3.5-5.1) Chloride Level 110 mmol/L (98-107) Carbon Dioxide Level 25 mmol/L (21-32) Anion Gap 10 (6-14) Blood Urea Nitrogen 88 mg/dL (8-26) Creatinine 3.1 mg/dL (0.7-1.3) Estimated GFR (Cockcroft-Gault) 19.9 BUN/Creatinine Ratio 28 (6-20) Glucose Level 126 mg/dL (70-99) Calcium Level 7.7 mg/dL (8.5-10.1) Magnesium Level 2.5 mg/dL (1.8-2.4) Total Bilirubin 0.6 mg/dL (0.2-1.0) Aspartate Amino Transf (AST/SGOT) 29 U/L (15-37) Alanine Aminotransferase (ALT/SGPT) 12 U/L (16-63) Alkaline Phosphatase 151 U/L (46-116) Total Protein 6.0 g/dL (6.4-8.2) Albumin 1.4 g/dL (3.4-5.0) Albumin/Globulin Ratio 0.3 (1.0-1.7) Test 12/20/20 08:25 12/20/20 08:45 O2 Saturation 97 % (92-99) Arterial Blood pH 7.10 (7.35-7.45) Arterial Blood pH (Temp corrected) 7.04 Arterial Blood pCO2 at Patient Temp 67 mmHg (35-46) Arterial Blood pCO2 (Temp correct) 83 mmHg Arterial Blood pO2 at Patient Temp 110 mmHg (65-108) Arterial Blood pO2 (Temp corrected) 144 mmHg Arterial Blood HCO3 20 mmol/L (21-28) Arterial Blood Base Excess -10 mmol/L (-3-3) FiO2 100 Sodium Level 143 mmol/L (136-145) Potassium Level 6.8 mmol/L (3.5-5.1) Chloride Level 108 mmol/L (98-107) Carbon Dioxide Level 25 mmol/L (21-32) Anion Gap 10 (6-14) Blood Urea Nitrogen 103 mg/dL (8-26) Creatinine 4.0 mg/dL (0.7-1.3) Estimated GFR (Cockcroft-Gault) 14.8 Glucose Level 190 mg/dL (70-99) Calcium Level 7.3 mg/dL (8.5-10.1) Troponin I High Sensitivity 529 ng/L (4-75) Procalcitonin 35.96 ng/mL (0.00-0.10) Brief Hospital Course History of Present Illness Mr Hamilton is a 70-year-old male w/ PMHx COPD, CAD, HLD, ELLIOT, DM2 (a1c 14) admitted for trouble with balance on 12/05/2020. Was found to be COVID positive, he was transferred to [facility]. 12/12: On 100% nonrebreather. Pleasantly confused. He appears quite ill. Went into rapid afib. Cardiology and pulmonology consulted. 12/13: Currently on 100% nonrebreather. Pleasantly confused. He keeps pulling off his nonrebreather and desats to 60. 12/14: Had to change him over to Vapotherm 40 L 100% FiO2 currently satting 95% (he kept pulling his mask off of the nonrebreather). He still remains quite ill 12/15: Febrile. Continues to pull off his oxygen. Pulling on his IVs overnight. Took off BIPAP. Responsive to IM zyprexa. Due to multiple blood draws and loss of IV access, requires heparin GTT and cardizem will order PICC 12/17: 12/07, start CLINIMIX IV nutrition PRN IV ativan BP good on PRN increase Lantus insulin dose on 65% bipap, discussed with RT, try to wean to vapotherm 12/18: Due to worsening respiratory distress patient was moved to ICU and intubated overnight. Chest x-ray, KUB pending. Afebrile. Still with significant hyperglycemia likely secondary to Clinimix, will adjust insulin. S/P remdesivir; continue Decadron to complete 10-day course. Continue empiric antibiotics and supportive care. 30 minutes critical care time spent reviewing charts, reviewing labs, reviewing imaging, discussion with Dr. Mason, and discussion with RN. 12/19 Patient evaluated and examined at bedside. Remains intubated and sedated. Still requiring vasopressors. Remains on Decadron and antibiotics. Very poor prognosis. Patient family considering withdrawal of care. 30 minutes critical care time spent reviewing charts, reviewing labs, reviewing imaging, and discussion with RN 12/20 Patient evaluated and examined at bedside. Remains intubated and sedated no major clinical changes or improvement. Very poor prognosis. Discussed on the phone with the patient's today for about 30 minutes and she has elected to transition patient to comfort measures only. Would request that we continue current measures until she is able to arrive at the hospital around lunchtime. 30 minutes critical care time spent reviewing charts, reviewing labs, reviewing imaging, and discussion with RN Care was withdrawn and patient at approximately 1231. Discharge Information Condition at Discharge: / Disposition/Orders: Scheduled Aspirin (Aspirin) 81 Mg Tab.chew, 1 TAB PO DAILY for , #30 Ref 3 (Reported) Entered as Reported by: Isabela Alonzo on 12/12/20503 Last Action: Reviewed on 12/12/20536 by Isabela Alonzo Bupropion Hcl (Bupropion Xl) 150 Mg Tab.er.24h, 1 TAB PO BID for , #30 Ref 2 (Reported) Entered as Reported by: Isabela Alonzo on 12/12/20503 Last Action: Reviewed on 12/12/20536 by Isabela Alonzo Cetirizine Hcl (Cetirizine Hcl) 10 Mg Tablet, 1 TAB PO DAILY for , #30 Ref 5 (Reported) Entered as Reported by: Isabela Alonzo on 12/12/20503 Last Action: Reviewed on 12/12/20536 by Isabela Alonzo Escitalopram Oxalate (Escitalopram Oxalate) 10 Mg Tablet, 1 TAB PO DAILY for , #30 Ref 3 (Reported) Entered as Reported by: Isabela Alonzo on 12/12/20503 Last Action: Reviewed on 12/12/20536 by Isabela Alonzo Esomeprazole Magnesium (Nexium Capsule) 40 Mg Capsule.dr, 1 CAP PO DAILY for , #30 Ref 5 (Reported) Entered as Reported by: Isabela Alonzo on 12/12/20503 Last Action: Reviewed on 12/12/20536 by Isabela Alonzo Gabapentin (Gabapentin) 600 Mg Tablet, 600 MG PO BID for NEUROGENIC PAIN, (Reported) Entered as Reported by: Isabela Alonzo on 12/12/20503 Last Action: Reviewed on 12/12/20536 by Isabela Alonzo Insulin Glargine,Hum.rec.anlog (Lantus Solostar) 100 Unit/1 Ml Insuln.pen, 30 UNIT SQ QHS for , #15 Ref 3 (Reported) Entered as Reported by: Isabela Alonzo on 12/12/20503 Last Action: Reviewed on 12/12/20536 by Isabela Alonzo Lisinopril (Lisinopril) 20 Mg Tablet, 1 TAB PO DAILY for , #30 Ref 5 (Reported) Entered as Reported by: Isabela Alonzo on 12/12/20503 Last Action: Reviewed on 12/12/20536 by Isabela Alonzo Pravastatin Sodium (Pravastatin Sodium) 20 Mg Tablet, 1 TAB PO QHS for , #90 Ref 3 (Reported) Entered as Reported by: Isabela Alonzo on 12/12/20503 Last Action: Reviewed on 12/12/20536 by Isabela Alonzo Justicifation of Admission Dx: Justifications for Admission: Justification of Admission Dx: Yes CHF: Cardiac Arrhythmias BRITTNY MATTHEW MD Dec 20, 2020 16:27
== END 2020-12-20 16:31 | DRG 871 ==
LOC: 6 SOUTH 20:18 → 1 WEST ICU 12-18 05:55
PROVIDERS: ADMIT Student in an Organized Health Care Education/Training Program; ATTEND Student in an Organized Health Care Education/Training Program
PROC: 5A09457 Assistance with Respiratory Ventilation, 24-96 Consecutive Hours, Continuous Positive Airway Pressure (ICD-10-PCS; 2020-12-14)
PROC: 02HV33Z Insertion of Infusion Device into Superior Vena Cava, Percutaneous Approach (ICD-10-PCS; 2020-12-15)
PROC: XW033E5 Introduction of Remdesivir Anti-infective into Peripheral Vein, Percutaneous Approach, New Technology Group 5 (ICD-10-PCS; 2020-12-15)
PROC: 5A1945Z Respiratory Ventilation, 24-96 Consecutive Hours (ICD-10-PCS; principal; 2020-12-18)
PROC: 0BH17EZ Insertion of Endotracheal Airway into Trachea, Via Natural or Artificial Opening (ICD-10-PCS; 2020-12-18)
DX: A41.9 Sepsis, unspecified organism (principal); U07.1 COVID-19; J12.82 Pneumonia due to coronavirus disease 2019; E43 Unspecified severe protein-calorie malnutrition; G92.9 Unspecified toxic encephalopathy; J15.9 Unspecified bacterial pneumonia; J80 Acute respiratory distress syndrome; R65.21 Severe sepsis with septic shock; I48.92 Unspecified atrial flutter; N17.9 Acute kidney failure, unspecified; E11.649 Type 2 diabetes mellitus with hypoglycemia without coma; E11.65 Type 2 diabetes mellitus with hyperglycemia; Z68.24 Body mass index [BMI] 24.0-24.9, adult; E78.5 Hyperlipidemia, unspecified; E87.5 Hyperkalemia; E87.6 Hypokalemia; F03.90 Unspecified dementia, unspecified severity, without behavioral disturbance, psychotic disturbance, mood disturbance, and anxiety; E11.40 Type 2 diabetes mellitus with diabetic neuropathy, unspecified; G47.33 Obstructive sleep apnea (adult) (pediatric); R79.89 Other specified abnormal findings of blood chemistry; R77.8 Other specified abnormalities of plasma proteins; I25.10 Atherosclerotic heart disease of native coronary artery without angina pectoris; I48.91 Unspecified atrial fibrillation; I10 Essential (primary) hypertension; J43.9 Emphysema, unspecified; Z51.5 Encounter for palliative care; Z79.4 Long term (current) use of insulin; Z79.82 Long term (current) use of aspirin; Z79.899 Other long term (current) drug therapy; Z82.49 Family history of ischemic heart disease and other diseases of the circulatory system; Z87.891 Personal history of nicotine dependence
CPT/HCPCS: 36415; 36569; 36600; 71045; 74018; 80048; 80053; 82805; 82962; 83735; 84145; 84484; 85007; 85025; 85027; 85520; 87040; 93005; 94002; 94003; 94660; 94760; C9113; J0282; J0330; J1100; J1160; J1644; J1650; J1815; J2060; J2250; J2270; J2370; J2543; J3010; J3490; J7030; J7040; J7050; J7060; G0378